=== PATIENT | female | born 1940 | race Caucasian/White ===

== ENCOUNTER 2017-02-07 15:56 | Inpatient (IN) ==
--- NOTE | 2017-02-07 16:37 | Emergency Department Note ---
Disposition Clinical Impression: Hypokalemia, Dehydration Altered mental status Qualifiers: Altered mental status type: disorientation Qualified Code(s): R41.0 - Disorientation, unspecified Urinary tract infection Qualifiers: Urinary tract infection type: acute cystitis Hematuria presence: without hematuria Qualified Code(s): N30.00 - Acute cystitis without hematuria Disposition: Admitted As Inpatient Condition: Fair Time of Disposition: 18:58 Altered Mental Status HPI - General Chief Complaint: ED Altered Mental Status Stated Complaint: AMS Time Seen by Provider: 02/07/17 16:00 Source: EMS Mode of arrival: EMS Limitations: altered mental status Nursing Notes Reviewed: Yes Vital Signs Reviewed: Yes - History of Present Illness HPI Narrative: Ms Kline is a 77 year old female that presents to the ED via EMS for AMS. Patient was seen in the ED for an unwitnessed fall at approx 4am on 02/06/17. Patient was found to have a fracture of her Left wrist, which was reduced and splinted in the ED. At that time family reports that patient's mentation was at baseline and head CT in the ED was negative. However, daughter notes today that when they awoke patient she seems to slouch to the left she does not follow commands, and does not respond appropriately to questioning. Currently patient states she feels better today than yesterday and replies "pkay" to most questions. Vital signs currently stable. Patient has a history of Dementia s/p encephalitis 7 years ago, history of uterine cancer s/p hysterectomy. MD complaint: altered mental status Onset (ago): hour(s) Time: 08:00 Timing confirmed by: family member Consistency of Symptoms: constant Context: other (history of dementia) Associated symptoms: Reports: denies other symptoms - Related Data Home Medications Medication Instructions Recorded Confirmed Alprazolam [Xanax 0.25 MG Tablet] 0.25 mg PO BID PRN 02/07/17 02/07/17 Atorvastatin [Lipitor] 40 mg PO HS 02/07/17 02/07/17 Citalopram Hydrobromide [Celexa] 40 mg PO DAILY 02/07/17 02/07/17 Donepezil HCl [Aricept] 5 mg PO HS 02/07/17 02/07/17 Losartan Potassium [Cozaar] 50 mg PO DAILY 02/07/17 02/07/17 Multivitamin [Multi-Day Vitamins] 1 each PO DAILY 02/07/17 02/07/17 Allergies Allergy/AdvReac Type Severity Reaction Status Date / Time No Known Allergies Allergy Verified 02/06/17 08:03 Limitations: ROS unobtainable due to patients medical condition Past Medical History - Past Medical History Attestation: Yes The following information was validated with the patient. Source: old records reviewed, obtained from family Medical history: Reports: dementia, other (uterine cancer) Surgical history: Reports: hysterectomy Psychiatric history: Reports: no psych history FOOD SERVICE MANAGER history: Reports: no FOOD SERVICE MANAGER history - Social History Smoking Status: Current every day smoker Smokeless Tobacco Status: No Alcohol use: Reports: none Drug use: Reports: none Physical Exam - General Limitations: altered mental status General appearance: alert - Head Head exam: atraumatic, normocephalic - Eye Eye exam: Present: EOMI, miosis, other (distortion of iris) - ENT ENT exam: mucous membranes moist, other (poor dentition) - Neck Neck exam: Present: normal inspection, trachea midline. Absent: tenderness - Chest Chest inspection: Present: normal inspection, symmetric chest wall rise. Absent : tenderness - Respiratory Respiratory exam: Present: normal lung sounds bilaterally. Absent: respiratory distress, wheezes - Cardiovascular Cardiovascular exam: Present: regular rate, normal rhythm, +S1, +S2 - Abdominal Exam Abdominal exam: Present: soft, Non-Tender, normal bowel sounds. Absent: tenderness, distention - Extremities Exam Extremities exam: Present: normal inspection. Absent: pedal edema - Expanded Upper Extremity Exam Hand exam: Present: swelling (dorsum of L hand), ecchymosis, other (normal capillary refill). Absent: tenderness Vascular exam: Normal: capillary refill - Neurological Exam Neurological exam: Present: alert. Absent: oriented X3 - Skin Skin exam: Present: warm, dry, intact Course - Reevaluation(s) Reevaluation #1: Patient sleeping comfortably on re-examination. Reviewed plan for antibiotics and admission with family who is agreeable. Time: 19:03 - Consultations Consultation #1: Spoke to Cecy Donato NP, with admitting hospitalist, who accepted patient. Time: 18:51 Vital Signs Temperature 98.7 F 02/07/17 16:02 Pulse Rate 97 02/07/17 16:02 Respiratory Rate 20 02/07/17 16:02 Blood Pressure 103/54 02/07/17 16:02 O2 Sat by Pulse Oximetry 94 02/07/17 16:02 Temperature 98.7 F 02/07/17 16:02 Pulse Rate 95 02/07/17 16:21 Respiratory Rate 18 02/07/17 16:21 Blood Pressure 113/47 02/07/17 16:21 O2 Sat by Pulse Oximetry 95 02/07/17 16:21 Oxygen Delivery Oxygen Delivery Nasal Cannula Altered Mental Status - Differential Diagnosis Likely: altered mental status, dementia - Medical Records Medical records reviewed: Yes I reviewed the patient's medical records. - Lab Data Lab results reviewed: Yes I reviewed the patient's lab results. Result diagrams: 02/07/17 17:16 02/07/17 17:16 Lab Results 02/07/17 02/07/17 02/07/17 Range/Units 17:16 17:16 17:16 WBC 8.6 (4.3-11.1) K/mcL RBC 3.45 L (3.82-4.97) M/mcL Hgb 10.6 L (11.5-15.4) g/dL Hct 32.5 L (35.3-44.9) % MCV 94.2 (83.0-100.0) fL MCH 30.7 (28.0-33.3) pg MCHC 32.6 (31.6-35.5) g/dL RDW 14.5 (11.5-14.5) % Plt Count 284 (140-400) K/mcL MPV 8.9 L (9.4-12.4) fL Seg Neutrophils % 69.0 % Band Neutrophils % 2.0 (0-4) % Lymphocytes % 20.0 % Monocytes % 9.0 % Neutrophils # 6.1 (1.6-8.9) K/mcL Lymphocytes # 1.7 (0.6-4.6) K/mcL Monocytes # 0.8 (0.0-1.3) K/mcL Platelet Estimate Normal (Normal) PT 16.3 H (9.4-12.1) Seconds INR 1.5 APTT 26.3 (26.0-36.0) Seconds Sodium 134 L (136-145) mEq/L Potassium 3.2 L (3.5-4.5) mEq/L Chloride 95 L (98-109) mEq/L Carbon Dioxide 24 (19-29) mEq/L BUN 20 (7-20) mg/dL Creatinine 1.13 H (0.57-1.11) mg/dL Est GFR ( Amer) 56 L (> 60) Est GFR (Non-Af Amer) 47 L (> 60) BUN/Creatinine Ratio 18 (6-26) Glucose 219 H (70-99) mg/dL Calculated Osmolality 287 (280-300) Calcium 9.6 (8.6-10.8) mg/dL Magnesium 1.6 (1.6-2.6) mg/dL Total Bilirubin 0.6 (0.2-1.2) mg/dL Direct Bilirubin 0.3 (0.0-0.5) mg/dL Indirect Bilirubin 0.3 (0.0-1.2) mg/dL AST 15 (5-34) Units/L ALT 11 (0-55) Units/L Alkaline Phosphatase 118 (38-126) Units/L Serum Total Protein 6.5 (6.0-8.3) g/dL Albumin 2.7 L (3.5-5.0) g/dL Globulin 3.8 H (2.4-3.5) g/dL Albumin/Globulin Ratio 0.7 L (1.1-2.2) Urine Color (Yellow) Urine Clarity (Clear) Urine pH (5.0-8.0) pH Units Ur Specific [place] (1.010-1.025) Urine Protein (Neg-Trace) mg/dL Urine Glucose (UA) (Normal) mg/dL Urine Ketones (Negative) mg/dL Urine Blood (Negative) Urine Nitrite (Negative) Urine Bilirubin (Negative) Urine Urobilinogen (Normal) mg/dL Ur Leukocyte Esterase (Negative) Urine Microscopic RBC (0-3) per hpf Urine Microscopic WBC (0-3) per hpf Ur Squamous Epith Cells (None-Few) per lpf Urine Bacteria (None-Few) per hpf Hyaline Casts (None-Few) per lpf WBC Casts (None Seen) per lpf Ur Culture Indicated? (NO) 02/07/17 Range/Units 17:57 WBC (4.3-11.1) K/mcL RBC (3.82-4.97) M/mcL Hgb (11.5-15.4) g/dL Hct (35.3-44.9) % MCV (83.0-100.0) fL MCH (28.0-33.3) pg MCHC (31.6-35.5) g/dL RDW (11.5-14.5) % Plt Count (140-400) K/mcL MPV (9.4-12.4) fL Seg Neutrophils % % Band Neutrophils % (0-4) % Lymphocytes % % Monocytes % % Neutrophils # (1.6-8.9) K/mcL Lymphocytes # (0.6-4.6) K/mcL Monocytes # (0.0-1.3) K/mcL Platelet Estimate (Normal) PT (9.4-12.1) Seconds INR APTT (26.0-36.0) Seconds Sodium (136-145) mEq/L Potassium (3.5-4.5) mEq/L Chloride (98-109) mEq/L Carbon Dioxide (19-29) mEq/L BUN (7-20) mg/dL Creatinine (0.57-1.11) mg/dL Est GFR ( Amer) (> 60) Est GFR (Non-Af Amer) (> 60) BUN/Creatinine Ratio (6-26) Glucose (70-99) mg/dL Calculated Osmolality (280-300) Calcium (8.6-10.8) mg/dL Magnesium (1.6-2.6) mg/dL Total Bilirubin (0.2-1.2) mg/dL Direct Bilirubin (0.0-0.5) mg/dL Indirect Bilirubin (0.0-1.2) mg/dL AST (5-34) Units/L ALT (0-55) Units/L Alkaline Phosphatase (38-126) Units/L Serum Total Protein (6.0-8.3) g/dL Albumin (3.5-5.0) g/dL Globulin (2.4-3.5) g/dL Albumin/Globulin Ratio (1.1-2.2) Urine Color Yellow (Yellow) Urine Clarity Cloudy A (Clear) Urine pH 6.0 (5.0-8.0) pH Units Ur Specific [place] 1.016 (1.010-1.025) Urine Protein 30 H (Neg-Trace) mg/dL Urine Glucose (UA) Normal (Normal) mg/dL Urine Ketones Negative (Negative) mg/dL Urine Blood Large H (Negative) Urine Nitrite Negative (Negative) Urine Bilirubin Small H (Negative) Urine Urobilinogen 2.0 H (Normal) mg/dL Ur Leukocyte Esterase Small H (Negative) Urine Microscopic RBC 0-3 (0-3) per hpf Urine Microscopic WBC 30-50 H (0-3) per hpf Ur Squamous Epith Cells Many H (None-Few) per lpf Urine Bacteria Many H (None-Few) per hpf Hyaline Casts Few (None-Few) per lpf WBC Casts Few H (None Seen) per lpf Ur Culture Indicated? YES A (NO) - Radiology Data Radiology results reviewed: Yes I reviewed the patient's radiology results. Chest X-Ray 02/07/17 16:14 IMPRESSION: Limited low lung volume study without acute process. D/ / Ingrid Fregoso MD / Ingrid Fregoso MD Interpreting Provider: Ingrid Fregoso MD Head CT 02/07/17 16:38 IMPRESSION: No acute intracranial abnormality. D/ / Hugh De La Cruz MD / Hugh De La Cruz MD Interpreting Provider: Hugh De La Cruz MD - EKG Data EKG attestation: Yes I reviewed and interpreted this EKG. EKG shows normal: sinus rhythm Rate: tachycardia Rhythm: PVC's When compared to previous EKG there are: previous EKG unavailable Attestation Statement - Attestation Attestation: I examined this patient and my medical decision-making was reviewed with the MOTOR MECHANIC/PA/Advanced Practice Nurse/Resident Physician. I agree with the documented findings, disposition and treatment plan as described except to the extent set forth below. Patient was seen here yesterday was diagnosed with a fall and a left wrist fracture is here for altered mental status and weakness. The patient is confused more so than her baseline workup reveals a urinary tract infection and mild dehydration should be admitted to hospitalist service IV antibiotics fluid replenishment along with potassium replacement.
[2017-02-07 17:26] LABS: Hematocrit 32.5 % (35.3-44.9); Hemoglobin 10.6 g/dL (11.5-15.4); Mean Corpuscular HGB Conc 32.6 g/dL (31.6-35.5); Mean Corpuscular Hemoglobin 30.7 pg (28.0-33.3); Mean Corpuscular Volume 94.2 fL (83.0-100.0); Mean Platelet Volume 8.9 fL (9.4-12.4); Platelet Count 284 K/mcL (140-400); Red Blood Count 3.45 M/mcL (3.82-4.97); Red Cell Distribution Width 14.5 % (11.5-14.5)
[2017-02-07 17:33] LABS: INR 1.5; Prothrombin Time 16.3 Seconds (9.4-12.1)
[2017-02-07 17:36] LABS: Activated Partial Thrombo Time 26.3 Seconds (26.0-36.0)
[2017-02-07 17:41] LABS: Albumin 2.7 g/dL (3.5-5.0); Albumin/Globulin Ratio 0.7 (1.1-2.2); Bilirubin,Direct 0.3 mg/dL (0.0-0.5); Bilirubin,Indirect 0.3 mg/dL (0.0-1.2); Bilirubin,Total 0.6 mg/dL (0.2-1.2); Calcium 9.6 mg/dL (8.6-10.8); Globulin 3.8 g/dL (2.4-3.5); Potassium 3.2 mEq/L (3.5-4.5); Total Protein 6.5 g/dL (6.0-8.3)
[2017-02-07 17:47] LABS: Lymphocytes # 1.7 K/mcL (0.6-4.6); Monocytes # 0.8 K/mcL (0.0-1.3); Neutrophils # 6.1 K/mcL (1.6-8.9)
[2017-02-07 17:48] LABS: Platelet Estimate Normal (Normal)
[2017-02-07] MEDS ORDERED: 0.9 % Sodium Chloride w KCl 40 MEQ/1,000 ML MLS IVC SCH (18:00)
[2017-02-07 18:07] LABS: Bilirubin,Urine Small (Negative); Blood,Urine Large (Negative); Clarity,Urine Cloudy (Clear); Color,Urine Yellow (Yellow); Glucose,Urine (UA) Normal (Normal); Ketones,Urine Negative (Negative); Leukocyte Esterase,Urine Small (Negative); Nitrite,Urine Negative (Negative); Protein,Urine 30 mg/dL (Neg-Trace); Specific Gravity,Urine 1.016 (1.010-1.025)
[2017-02-07 18:10] LABS: Bacteria,Urine Many per hpf (None-Few); RBC,Urine 0-3 per hpf (0-3); Squamous Epithelial Cell,Urine Many per lpf (None-Few); WBC,Urine 30-50 per hpf (0-3)
[2017-02-07 18:21] LABS: Hyaline Casts,Urine Few per lpf (None-Few)
[2017-02-07 18:22] LABS: White Blood Cell Casts,Urine Few per lpf (None Seen)
[2017-02-07 18:45] LABS: Magnesium 1.6 mg/dL (1.6-2.6)
[2017-02-07] MEDS ORDERED: Naloxone 0.4 MG/ML INJ IVP PRN (22:05)
--- NOTE | 2017-02-07 22:11 | Internal Med History&Physical ---
Date of Encounter: 02/07/17 Time of Encounter: 22:10 Assessment and Plan (1) Urinary tract infection Current visit: Yes Status: Acute With possible sepsis (HR: >90; Change in mental status). Urine cultures pending. Empirically treat with ceftriaxone. Qualifiers: Urinary tract infection type: site unspecified Hematuria presence: without hematuria Qualified Code(s): N39.0 - Urinary tract infection, site not specified (2) Acute kidney injury Current visit: Yes Status: Acute Likely secondary to UTI/poor oral intake. Treat with IV fluids (3) Hypokalemia Current visit: Yes Status: Acute Supplement potassium and monitor. Check magnesium levels. (4) Dementia Current visit: No Status: Acute Supportive care. Continue home medications. Qualifiers: Dementia type: unspecified type Dementia behavioral disturbance: without behavioral disturbance Qualified Code(s): F03.90 - Unspecified dementia without behavioral disturbance (5) Hyperglycemia Current visit: Yes Status: Acute Not a known diabetic. Will check A1C (6) Hypertension Current visit: Yes Status: Chronic Hold losartan due to JIGAR. Qualifiers: Hypertension type: essential hypertension Qualified Code(s): I10 - Essential (primary) hypertension (7) Altered mental status Current visit: Yes Status: Acute Pt is known to have dementia and acute worsening is possibly contributed by UTI. Supportive care and treat UTI. Qualifiers: Altered mental status type: disorientation Qualified Code(s): R41.0 - Disorientation, unspecified Internal Medicine - H&P: HPI Chief complaint: Increased confusion Admitted From: Emergency Dept Plans for Post Hospital Care: Home History of present illness: Ms. Kline is a 77 year old female with past medical history significant for dementia, hypertension presented to the ED via EMS for confusion/AMS. Patient was seen in the ED for an unwitnessed fall on 02/06/17 and was found to have a fracture of her Left wrist, which was reduced and splinted in the ED. Today she was noted to be more confused and was not following commands, per family. Patient is not able to give clinical details and not able to converse with me. Pts grand daughter, who is involved in her care indicates that her mental status is way worse compared to her baseline. She was evaluated in the ER and was thought to have UTI and was given ceftriaxone and IV fluids. She is admitted to the hospitalist service for further management. Not able to confirm Past medical Hx, social Hx and family Hx of the pt due to her dementia. Past Med Surg Social Fam HX - Past Medical History Medical history: dementia, other Psychiatric history: no psych history - Past Surgical History Surgical History: hysterectomy - Social History Smoking Status: Current every day smoker Smokeless Tobacco Status: No Alcohol use: none Drug use: none Internal Medicine - H&P: Meds Alprazolam [Xanax 0.25 MG Tablet] 0.25 mg PO BID PRN 02/07/17 [History] Atorvastatin [Lipitor] 40 mg PO HS 02/07/17 [History] Citalopram Hydrobromide [Celexa] 40 mg PO DAILY 02/07/17 [History] Donepezil HCl [Aricept] 5 mg PO HS 02/07/17 [History] Losartan Potassium [Cozaar] 50 mg PO DAILY 02/07/17 [History] Multivitamin [Multi-Day Vitamins] 1 each PO DAILY 02/07/17 [History] Allergies No Known Allergies Allergy (Verified 02/06/17 08:03) ROS unobtainable: due to mental status - Constitutional Vitals: Temp Pulse Resp BP Pulse Ox 98.0 F 78 16 125/61 91 02/07/17 20:33 02/07/17 20:33 02/07/17 20:33 02/07/17 20:33 02/07/17 20:33 Exam: General: Not in acute distress at the time of my evaluation. HEENT: Oral mucosa is dry. conjunctival palor present. No scleral icterus Neck: No obvious neck swellings Lungs: Clear to auscultation Cardiac: Regular rate and rhythm. No significant murmurs Abdomen: Soft, non tender. Bowel sounds present Genitourinary: No rios catheter Neurological: Confused. Not able to follow commands. Psych: confused. Not aggressive or agitated Extremities: no significant leg edema Skin: No generalized rash Internal Med - H&P Results - Labs CBC & Chem 7: 02/07/17 17:16 02/07/17 17:16 - EKG Data -: EKG Interpreted by Myself EKG shows normal: sinus rhythm - EKG Data EKG comments: RBBB 02/08/17 05:20 - Impressions ITS Impressions Chest X-Ray 02/07/17 16:14 IMPRESSION: Limited low lung volume study without acute process. D/ / Ingrid Fregoso MD / Ingrid Fregoso MD Interpreting Provider: Ingrid Fregoso MD Head CT 02/07/17 16:38 IMPRESSION: No acute intracranial abnormality. D/ / Hugh De La Cruz MD / Hugh De La Cruz MD Interpreting Provider: Hugh De La Cruz MD
[2017-02-07] MEDS: 0.9 % Sodium Chloride w KCl 40 MEQ/1,000 ML MLS IVC SCH (23:45)
[2017-02-07] MEDS: *HR* Heparin 5,000 UNIT/ML VIAL SQ SCH (23:46)
[2017-02-08] MEDS ORDERED: Acetaminophen 325 MG TABLET PO PRN (05:04)
[2017-02-08] MEDS ORDERED: ALPRAZolam 0.25 MG TABLET PO PRN (05:05)
[2017-02-08 05:38] LABS: Hematocrit 30.9 % (35.3-44.9); Hemoglobin 9.9 g/dL (11.5-15.4); Mean Corpuscular Volume 96.9 fL (83.0-100.0); Platelet Count 261 K/mcL (140-400); Red Blood Count 3.19 M/mcL (3.82-4.97); Red Cell Distribution Width 14.5 % (11.5-14.5)
[2017-02-08 05:50] LABS: BUN/Creatinine Ratio 17 (6-26); Blood Urea Nitrogen 15 mg/dL (7-20); Calcium 8.5 mg/dL (8.6-10.8); Carbon Dioxide 26 mEq/L (19-29); Chloride 99 mEq/L (98-109); Glucose 151 mg/dL (70-99); Magnesium 1.7 mg/dL (1.6-2.6); Osmolality,Calculated 280 (280-300); Potassium 3.7 mEq/L (3.5-4.5); Sodium 133 mEq/L (136-145); eGFR For African Americans > 60 (> 60); eGFR For Non-African Americans > 60 (> 60)
[2017-02-08 06:24] LABS: Lymphocytes # 2.4 K/mcL (0.6-4.6); Monocytes # 1.5 K/mcL (0.0-1.3); Neutrophils # 4.6 K/mcL (1.6-8.9); Platelet Estimate Normal (Normal)
[2017-02-08 08:01] LABS: Hemoglobin A1C 5.8 %
[2017-02-08] MEDS: Lactobacillus 1 EACH CAP.SPRINK PO SCH ×2 (08:11→20:19)
[2017-02-08] MEDS: Multivit/Ca/Min/Fe/FA 1 TAB TABLET PO SCH (08:12)
[2017-02-08] MEDS: *HR* Heparin 5,000 UNIT/ML VIAL SQ SCH (08:12)
[2017-02-08] MEDS: 0.9 % Sodium Chloride w KCl 40 MEQ/1,000 ML MLS IVC SCH ×3 (10:09→20:15)
[2017-02-08] MEDS ORDERED: *HR* Dextrose 50 % in Water (Syg) 50 ML SYRINGE IVP PRN (11:29)
[2017-02-08] MEDS ORDERED: Dextrose Gel 15 GM PO PRN ×2 (11:29)
[2017-02-08] MEDS ORDERED: D5% in Water 1,000 ML IVC PRN (11:29)
[2017-02-08] MEDS: *HR* LORazepam 0.5 MG TABLET PO PRN ×2 (13:17→23:02)
[2017-02-08] MEDS: *HR* HYDROcodone/Acet 5/325 mg TABLET PO PRN ×2 (13:17→23:03)
[2017-02-08] MEDS: Insulin LISPRO 300 UNITS/3 ML VIAL SQ SCH ×2 (13:20→17:04)
[2017-02-08] MEDS: Nicotine 14 MG PATCH.TD24 TD SCH (13:31)
--- NOTE | 2017-02-08 17:49 | Electrocardiograph Report ---
[address] [place] [address] Test Date: 2017-02-07 Pat Name: Annie Kline Department: 103 Room: 3A51 Gender: F Director Ehs: : 1940 Requested By: Gomez Thomas Order Number: [id number] Reading MD: Reinier Gtz MD Measurements Intervals [place] Rate: 93 P: 71 NC: 159 QRS: -67 QRSD: 82 T: 53 QT: 366 QTc: 416 Interpretive Statements SINUS RHYTHM WITH OCCASIONAL VENTRICULAR PREMATURE COMPLEXES LEFT AXIS DEVIATION POSSIBLE RIGHT VENTRICULAR CONDUCTION DELAY INFERIOR MYOCARDIAL INFARCTION, PROBABLY OLD WITH POSTERIOR EXTENSION Electronically Signed On 02-08-2017 17:48:15 EDT by Reinier Gtz MD
--- NOTE | 2017-02-08 19:21 | Internal Med Progress Note ---
Date of Encounter: 02/08/17 Time of Encounter: 11:00 - Assessment and plan (1) Fracture of wrist Current Visit: No Status: Acute Assessment and plan: Oral Kincaid for pain. Qualifiers: Encounter type: initial encounter Fracture type: closed Laterality: left Qualified Code(s): S62.102A - Fracture of unspecified carpal bone, left wrist , initial encounter for closed fracture (2) Dementia Current Visit: No Status: Acute Assessment and plan: Full precautions. Frequent reorientation. Avoid excessive sedation. Qualifiers: Dementia type: unspecified type Dementia behavioral disturbance: without behavioral disturbance Qualified Code(s): F03.90 - Unspecified dementia without behavioral disturbance (3) Urinary tract infection Current Visit: Yes Status: Acute Assessment and plan: We will treat her with IV ceftriaxone. Follow up cultures and sensitivity. Qualifiers: Urinary tract infection type: site unspecified Hematuria presence: without hematuria Qualified Code(s): N39.0 - Urinary tract infection, site not specified (4) Dehydration Current Visit: Yes Status: Acute Assessment and plan: IV fluid hydration. (5) Hypertension Current Visit: Yes Status: Chronic Qualifiers: Hypertension type: essential hypertension Qualified Code(s): I10 - Essential (primary) hypertension - Subjective Interval history: Patient reports left wrist pain as well as lower abdominal pain and dysuria. She was brought in with confusion, currently her mental status has slightly improved. Her family reports that patient has baseline dementia. - Constitutional Vitals: Temp Pulse Resp BP Pulse Ox 97.7 F 63 18 132/70 96 02/08/17 16:35 02/08/17 16:35 02/08/17 16:35 02/08/17 16:35 02/08/17 17:16 - Neck Neck exam general surgery: Present: supple, trachea midline. Absent: lymphadenopathy - Respiratory Respiratory exam: Present: CTAB. Absent: accessory muscle use, rales, rhonchi, wheezes - Cardiovascular Cardiovascular exam: Present: RRR, +S1, +S2. Absent: diastolic murmur, gallop, rubs, systolic murmur - GI/Abdominal GI/Abdominal exam: Present: normal bowel sounds, soft, no peritoneal signs. Absent: distended, tenderness - Extremities Exam Additional comments: Left breast is in a brace, mild swelling of the fingers. Internal Medicine: Result - Labs CBC & Chem 7: 02/08/17 05:22 02/08/17 05:22 Labs: Short CBC 02/08/17 Range/Units 05:22 WBC 8.5 (4.3-11.1) K/mcL Hgb 9.9 L (11.5-15.4) g/dL Hct 30.9 L (35.3-44.9) % Plt Count 261 (140-400) K/mcL Neutrophils # 4.6 (1.6-8.9) K/mcL BMP 02/08/17 05:22 Sodium 133 L Potassium 3.7 Chloride 99 Carbon Dioxide 26 BUN 15 Creatinine 0.86 Glucose 151 H Calcium 8.5 L - ABG Interpretation ABG results: PT/INR, D-dimer PT 16.3 Seconds (9.4-12.1) H 02/07/17 17:16 Consult Discharge Plan - Plan Referrals: Chuy Lloyd MD [Primary Care Provider] - 02/16/17 2:00 pm
[2017-02-08] MEDS ORDERED: Insulin LISPRO 300 UNITS/3 ML VIAL SQ SCH (21:00)
[2017-02-09] MEDS: *HR* HYDROcodone/Acet 5/325 mg TABLET PO PRN (04:41)
[2017-02-09] MEDS: 0.9 % Sodium Chloride w KCl 40 MEQ/1,000 ML MLS IVC SCH ×2 (04:49→07:14)
[2017-02-09 06:13] LABS: BUN/Creatinine Ratio 13 (6-26); Blood Urea Nitrogen 9 mg/dL (7-20); Calcium 8.7 mg/dL (8.6-10.8); Carbon Dioxide 19 mEq/L (19-29); Chloride 107 mEq/L (98-109); Glucose 112 mg/dL (70-99); Osmolality,Calculated 281 (280-300); Potassium 5.2 mEq/L (3.5-4.5); Sodium 136 mEq/L (136-145); eGFR For African Americans > 60 (> 60); eGFR For Non-African Americans > 60 (> 60)
[2017-02-09] MEDS: Insulin LISPRO 300 UNITS/3 ML VIAL SQ SCH ×2 (08:00→12:52)
[2017-02-09] MEDS: Lactobacillus 1 EACH CAP.SPRINK PO SCH (10:15)
[2017-02-09] MEDS: Multivit/Ca/Min/Fe/FA 1 TAB TABLET PO SCH (10:15)
[2017-02-09] MEDS: Nicotine 14 MG PATCH.TD24 TD SCH (10:16)
[2017-02-09 11:49] LABS: Hematocrit 29.6 % (35.3-44.9); Hemoglobin 9.9 g/dL (11.5-15.4); Mean Corpuscular HGB Conc 33.4 g/dL (31.6-35.5); Mean Corpuscular Hemoglobin 31.8 pg (28.0-33.3); Mean Corpuscular Volume 95.2 fL (83.0-100.0); Mean Platelet Volume 9.3 fL (9.4-12.4); Platelet Count 305 K/mcL (140-400); Red Blood Count 3.11 M/mcL (3.82-4.97); Red Cell Distribution Width 14.6 % (11.5-14.5)
[2017-02-09 12:22] VITALS: BP 148/73
--- NOTE | 2017-02-09 12:58 | Discharge Summary ---
Date of Encounter: 02/10/17 Time of Encounter: 12:56 - Discharge Diagnosis (1) Fracture of wrist Priority: Secondary Status: Acute Qualifiers: Encounter type: initial encounter Fracture type: closed Laterality: left Qualified Code(s): S62.102A - Fracture of unspecified carpal bone, left wrist , initial encounter for closed fracture (2) Dementia Priority: Secondary Status: Acute Qualifiers: Dementia type: unspecified type Dementia behavioral disturbance: without behavioral disturbance Qualified Code(s): F03.90 - Unspecified dementia without behavioral disturbance (3) Urinary tract infection Priority: Primary Status: Acute Qualifiers: Urinary tract infection type: site unspecified Hematuria presence: without hematuria Qualified Code(s): N39.0 - Urinary tract infection, site not specified (4) Dehydration Priority: Secondary Status: Acute (5) Hypertension Priority: Secondary Status: Chronic Qualifiers: Hypertension type: essential hypertension Qualified Code(s): I10 - Essential (primary) hypertension - Discharge Medications Prescriptions: HYDROcodone/Acet 5/325 mg [[place] 5-325 mg] 1 tab PO Q6HR PRN #30 tablet PRN Reason: moderate to severe pain Cefuroxime PO [Ceftin] 250 mg PO Q12HR #10 tablet LORazepam [Ativan] 0.25 mg PO TID PRN #30 tablet PRN Reason: Anxiety Home Medications: Atorvastatin [Lipitor] 40 mg PO HS 02/07/17 [History] Citalopram Hydrobromide [Celexa] 40 mg PO DAILY 02/07/17 [History] Donepezil HCl [Aricept] 5 mg PO HS 02/07/17 [History] Losartan Potassium [Cozaar] 50 mg PO DAILY 02/07/17 [History] Multivitamin [Multi-Day Vitamins] 1 each PO DAILY 02/07/17 [History] Cefuroxime PO [Ceftin] 250 mg PO Q12HR #10 tablet 02/09/17 [Rx] HYDROcodone/Acet 5/325 mg [[place] 5-325 mg] 1 tab PO Q6HR PRN #30 tablet [Rx] LORazepam [Ativan] 0.25 mg PO TID PRN #30 tablet 02/09/17 [Rx] Allergies/Adverse Reactions: Allergies No Known Allergies Allergy (Verified 02/06/17 08:03) Date of admission: 02/07/17 22:05 Primary care physician: Chuy Lloyd MD Consults: 02/07/17 22:08 PT [Consult to Physical Therapy] [CONS] Routine Comment: Evaluate, develop and implement POC - Patient Status Disposition: Home, Self-Care Condition: Fair Functional capacity at discharge: uses cane/walker Overall status at discharge: patient is progressing back to baseline - Discharge Instructions Follow Up With: Chuy Lloyd MD [Primary Care Provider] - 02/16/17 2:00 pm - Diet and Activity Activity: ambulate only with your walker, as per physical therapy Diet: diabetic diet, low fat, low cholesterol, low salt diet Hospital course: Ms. Kline is a 77 year old female with past medical history of hypertension and dementia who was brought to the hospital for evaluation of confusion, dehydration and decreased oral intake. She was found to have a urinary tract infection and was admitted to the medical service. She received treatment with IV fluids and IV ceftriaxone. Her mental status improved. She was able to have adequate oral intake. Her urine culture grew Escherichia coli sensitive to cephalosporins. She will be transitioned to oral Ceftin and discharged home. Her anxiolytics have been changed from Xanax as per her home regimen to low-dose Ativan. She tolerated this well. She was evaluated by social service and found to not qualify for a hospital bed. She is currently medically stable for discharge home. Family was instructed to have the patient follow up with her primary care physician as possible. - Time Spent with Patient Total time spent providing and/or coordinating discharge services: - Constitutional Vitals: Temp Pulse Resp BP Pulse Ox 98.2 F 84 18 148/73 90 02/09/17 12:12 02/09/17 12:12 02/09/17 12:12 02/09/17 12:12 02/09/17 12:12 General appearance: Present: A&O X 2 - Eye Eye exam: Present: PERRL, conjuntiva pink, sclera anicteric Pupils: Present: PERRL - Respiratory Respiratory exam: Present: CTAB. Absent: accessory muscle use, rales, rhonchi, wheezes - Cardiovascular Cardiovascular exam: Present: RRR, +S1, +S2. Absent: diastolic murmur, gallop, rubs, systolic murmur
== END 2017-02-09 14:03 | disposition home or self-care (01) | DRG 683 ==
LOC: 3ANU 15:56 → EMEROO 15:56 → 3ANU 19:40
PROVIDERS: ADMIT Internal Medicine; ATTEND Internal Medicine

== ENCOUNTER 2017-08-28 18:32 | Observation (INO) ==
--- NOTE | 2017-08-28 19:17 | Emergency Department Note ---
Disposition Clinical Impression: Generalized weakness Disposition: Admitted As Inpatient Condition: Undetermined Referrals: Chuy Lloyd MD [Primary Care Provider] - Forms: ED Satisfaction Letter Time of Disposition: 22:14 Weakness HPI - General Chief complaint: ED Weakness Stated complaint: weakness Time Seen by Provider: 08/28/17 18:58 Source: patient, EMS Mode of arrival: EMS Limitations: altered mental status Nursing Notes Reviewed: Yes Vital Signs Reviewed: Yes - History of Present Illness HPI Narrative: 77-year-old female with history of UTI apparently arrives to [facility] emergency department complaining of generalized weakness and mild alteration in mentation from her baseline per family. EMS was called after the patient was acting slightly confused. The patient does have an extensive history of UTI and apparently goes through similar episodes during those episodes. The patient denies any complaints and is answering all questions appropriately to me in the emergency department. EMS also stated the patient answer all questions appropriately. The patient denies any other complaints including dysuria, abdominal pain, fever, chills, unilateral weakness , headache, cough, abdominal pain, neck stiffness. Pt Subjective Complaint: generalized weakness/fatigue Onset (ago): unknown Duration: gradually worsening Location: generalized Pain Severity: none Pain Scale: 0 Improves with: none Worsens with: none Context: history of similar Associated symptoms: Reports: denies other symptoms - Related Data Home Medications Medication Instructions Recorded Confirmed Atorvastatin [Lipitor] 40 mg PO HS 02/07/17 08/28/17 Citalopram Hydrobromide [Celexa] 40 mg PO DAILY 02/07/17 08/28/17 Donepezil HCl [Aricept] 5 mg PO HS 02/07/17 08/28/17 Losartan Potassium [Cozaar] 50 mg PO DAILY 02/07/17 08/28/17 Multivitamin [Multi-Day Vitamins] 1 each PO DAILY 02/07/17 08/28/17 ALPRAZolam [Xanax 0.25 MG Tablet] 0.25 mg PO BID PRN 08/28/17 08/28/17 Allergies Allergy/AdvReac Type Severity Reaction Status Date / Time No Known Allergies Allergy Verified 02/06/17 08:03 All systems ED: reviewed and negative except as stated. Constitutional: Reports: weakness. Denies: fever, chills Eyes: Denies: vision change ENT ED: Denies: congestion Cardiovascular: Denies: chest pain, palpitations, dyspnea on exertion, edema, syncope Respiratory: Denies: cough, dyspnea, wheezes, hemoptysis Gastrointestinal: Denies: abdominal pain, nausea, vomiting Genitourinary: Denies: urgency, dysuria, frequency Musculoskeletal: Denies: back pain Neurological: Reports: weakness, confusion. Denies: headache, numbness, paresthesias, abnormal gait Past Medical History - Past Medical History Attestation: Yes The following information was validated with the patient. Source: old records reviewed Medical history: Reports: dementia, other Surgical history: Reports: hysterectomy Psychiatric history: Reports: no psych history GROCERY CADDY history: Reports: no GROCERY CADDY history - Social History Smoking Status: Current every day smoker Smokeless Tobacco Status: No Alcohol use: Reports: none Drug use: Reports: none Physical Exam - General Limitations: altered mental status General appearance: alert, in no apparent distress - Head Head exam: atraumatic, normocephalic, normal inspection - Eye Eye exam: Present: normal appearance, PERRL, EOMI - ENT ENT exam: normal exam, normal oropharynx, mucous membranes moist - Neck Neck exam: Present: normal inspection - Chest Chest inspection: Present: normal inspection, symmetric chest wall rise - Respiratory Respiratory exam: Present: normal lung sounds bilaterally - Cardiovascular Cardiovascular exam: Present: regular rate, normal rhythm, normal heart sounds - Abdominal Exam Abdominal exam: Present: soft, Non-Tender. Absent: tenderness, distention, guarding, rebound, rigidity - Extremities Exam Extremities exam: Present: normal inspection, full ROM. Absent: tenderness, pedal edema - Neurological Exam Neurological exam: Present: alert, CN II-XII intact - Expanded Neurological Exam Patient oriented to: Present: person, place Speech: Present: fluid speech Cranial nerves: EOM function (II, III, IV, ): Normal, facial sensation (V): Normal, facial palsy (VII): Normal Motor strength - LUE: 5/5 Motor strength - RUE: 5/5 Motor strength - LLE: 5/5 Motor strength - RLE: 5/5 Sensory exam upper extremity: light touch: Normal Sensory exam lower extremity: light touch: Normal Coma Scale Eye Opening: Spontaneous Coma Scale Motor Response: Obeys Commands Coma Scale Verbal Response: Oriented Coma Scale Total: 15 Course Vital Signs Temperature 98.2 F 08/28/17 18:40 Pulse Rate 81 10/23/17 18:40 Respiratory Rate 16 08/28/17 18:40 Blood Pressure 127/57 08/28/17 18:40 O2 Sat by Pulse Oximetry 97 08/28/17 18:40 Temperature 98.2 F 08/28/17 18:40 Pulse Rate 76 08/28/17 21:19 Respiratory Rate 16 08/28/17 21:19 Blood Pressure 100/57 08/28/17 21:19 O2 Sat by Pulse Oximetry 98 08/28/17 21:19 Oxygen Delivery Oxygen Delivery Room Air Weakness - MDM Narrative Medical decision making narrative: She experiencing large amount of weakness and family expressed that they were having difficulty with caring for the patient. They expressed the concern that they would not be able to care for the patient at this time. Workup here in the emergency department demonstrates no acute findings. The patient does have a history of dementia. We will admit the patient to the hospitalist at this time. Accepted by Dr. Cardenas. - Lab Data Lab results reviewed: Yes I reviewed the patient's lab results. Result diagrams: 08/28/17 19:31 08/28/17 19:31 Lab Results 08/28/17 08/28/17 08/28/17 Range/Units 19:31 19:31 19:31 WBC 6.6 (4.3-11.1) K/mcL RBC 3.56 L (3.82-4.97) M/mcL Hgb 11.3 L (11.5-15.4) g/dL Hct 33.4 L (35.3-44.9) % MCV 93.8 (83.0-100.0) fL MCH 31.7 (28.0-33.3) pg MCHC 33.8 (31.6-35.5) g/dL RDW 13.8 (11.5-14.5) % Plt Count 232 (140-400) K/mcL MPV 8.3 L (9.4-12.4) fL Immature Gran % 6.0 H (0-4) % Seg Neutrophils % 53.3 % Lymphocytes % 30.7 % Monocytes % 9.2 % Eosinophils % 0.5 % Basophils % 0.3 % Neutrophils # 3.5 (1.6-8.9) K/mcL Lymphocytes # 2.0 (0.6-4.6) K/mcL Monocytes # 0.6 (0.0-1.3) K/mcL Eosinophils # 0.0 (0.0-0.6) K/mcL Basophils # 0.0 (0.0-0.2) K/mcL Sodium 133 L (136-145) mEq/L Potassium 4.2 (3.5-4.5) mEq/L Chloride 97 L (98-109) mEq/L Carbon Dioxide 28 (19-29) mEq/L BUN 8 (7-20) mg/dL Creatinine 0.72 (0.57-1.11) mg/dL Est GFR ( Amer) > 60 (> 60) Est GFR (Non-Af Amer) > 60 (> 60) BUN/Creatinine Ratio 11 (6-26) Glucose 117 H (70-99) mg/dL Calculated Osmolality 275 L (280-300) Calcium 9.5 (8.6-10.8) mg/dL Total Bilirubin 0.2 (0.2-1.2) mg/dL AST 13 (5-34) Units/L ALT 11 (0-55) Units/L Alkaline Phosphatase 145 H (38-126) Units/L Troponin I 0.00 (0-0.03) ng/mL Serum Total Protein 6.9 (6.0-8.3) g/dL Albumin 3.1 L (3.5-5.0) g/dL Globulin 3.8 H (2.4-3.5) g/dL Albumin/Globulin Ratio 0.8 L (1.1-2.2) Urine Color (Yellow) Urine Clarity (Clear) Urine pH (5.0-8.0) pH Units Ur Specific [place] (1.010-1.025) Urine Protein (Neg-Trace) mg/dL Urine Glucose (UA) (Normal) mg/dL Urine Ketones (Negative) mg/dL Urine Blood (Negative) Urine Nitrite (Negative) Urine Bilirubin (Negative) Urine Urobilinogen (Normal) mg/dL Ur Leukocyte Esterase (Negative) Ur Squamous Epith Cells (None-Few) per lpf Urine Bacteria (None-Few) per hpf Hyaline Casts Urine Yeast (None Seen) per hpf Ur Culture Indicated? (NO) 08/28/17 Range/Units 19:39 WBC (4.3-11.1) K/mcL RBC (3.82-4.97) M/mcL Hgb (11.5-15.4) g/dL Hct (35.3-44.9) % MCV (83.0-100.0) fL MCH (28.0-33.3) pg MCHC (31.6-35.5) g/dL RDW (11.5-14.5) % Plt Count (140-400) K/mcL MPV (9.4-12.4) fL Immature Gran % (0-4) % Seg Neutrophils % % Lymphocytes % % Monocytes % % Eosinophils % % Basophils % % Neutrophils # (1.6-8.9) K/mcL Lymphocytes # (0.6-4.6) K/mcL Monocytes # (0.0-1.3) K/mcL Eosinophils # (0.0-0.6) K/mcL Basophils # (0.0-0.2) K/mcL Sodium (136-145) mEq/L Potassium (3.5-4.5) mEq/L Chloride (98-109) mEq/L Carbon Dioxide (19-29) mEq/L BUN (7-20) mg/dL Creatinine (0.57-1.11) mg/dL Est GFR ( Amer) (> 60) Est GFR (Non-Af Amer) (> 60) BUN/Creatinine Ratio (6-26) Glucose (70-99) mg/dL Calculated Osmolality (280-300) Calcium (8.6-10.8) mg/dL Total Bilirubin (0.2-1.2) mg/dL AST (5-34) Units/L ALT (0-55) Units/L Alkaline Phosphatase (38-126) Units/L Troponin I (0-0.03) ng/mL Serum Total Protein (6.0-8.3) g/dL Albumin (3.5-5.0) g/dL Globulin (2.4-3.5) g/dL Albumin/Globulin Ratio (1.1-2.2) Urine Color Yellow (Yellow) Urine Clarity Clear (Clear) Urine pH 6.5 (5.0-8.0) pH Units Ur Specific [place] 1.008 L (1.010-1.025) Urine Protein Negative (Neg-Trace) mg/dL Urine Glucose (UA) Normal (Normal) mg/dL Urine Ketones Negative (Negative) mg/dL Urine Blood Small H (Negative) Urine Nitrite Negative (Negative) Urine Bilirubin Negative (Negative) Urine Urobilinogen Normal (Normal) mg/dL Ur Leukocyte Esterase Negative (Negative) Ur Squamous Epith Cells Few (None-Few) per lpf Urine Bacteria Few (None-Few) per hpf Hyaline Casts Test Not Performed Urine Yeast Few H (None Seen) per hpf Ur Culture Indicated? NO (NO) - EKG Data EKG attestation: Yes I reviewed and interpreted this EKG. EKG results narrative: Heart rate 80 bpm. PA interval 183 ms. QTC 399 ms. Normal sinus rhythm. No ST elevation or ST depression. EKG similar in appearance overall the EKG from 02/07/2017. Attestation Statement - Attestation Attestation: I, Sonny Wren DO, examined this patient [id number] and my medical decision-making was reviewed with Dr. Erwin Lagos, Resident Physician. I agree with the documented findings, disposition and treatment plan as described except to the extent set forth below. Please see my progress notes for details. 77-year-old female presents from home in the care of . Patient has known dementia but over the last 24 hours and complaining of inability to get herself up out of her care. She has a trauma or injuries. She has normal mobility of her hips knees and ankles bilaterally. She has no complaints or symptoms on physical exam. Lungs are clear heart is regular. Patient does not have any abdominal pathology. There is no visible signs of trauma injury or pathology on physical exam the lower extremity. Patient has no visible signs of trauma to the head pupils are equal round reactive to light. Patient has negative urinalysis as well as laboratory this time. CT of the head to be completed. Chest x-ray is otherwise unremarkable. After lengthy discussion with the it turns out that the patient is unable to be cared for at home secondary to her chronic medical issues. Patient is stable. Patient will be admitted to the hospital for definitive evaluation. See detailed" the physical exam, medical intervention, medical decision-making and disposition of the resident physician's note
[2017-08-28 19:58] LABS: Basophils % 0.3 %; Eosinophils % 0.5 %; Hematocrit 33.4 % (35.3-44.9); Hemoglobin 11.3 g/dL (11.5-15.4); Lymphocytes % 30.7 %; Mean Corpuscular HGB Conc 33.8 g/dL (31.6-35.5); Mean Corpuscular Hemoglobin 31.7 pg (28.0-33.3); Mean Corpuscular Volume 93.8 fL (83.0-100.0); Mean Platelet Volume 8.3 fL (9.4-12.4); Monocytes # 0.6 K/mcL (0.0-1.3); Monocytes % 9.2 %; Neutrophils # 3.5 K/mcL (1.6-8.9); Platelet Count 232 K/mcL (140-400); Red Blood Count 3.56 M/mcL (3.82-4.97); Red Cell Distribution Width 13.8 % (11.5-14.5); Segmented Neutrophils % 53.3 %
[2017-08-28 20:13] LABS: Alanine Aminotransferase 11 Units/L (0-55); Albumin 3.1 g/dL (3.5-5.0); Albumin/Globulin Ratio 0.8 (1.1-2.2); Alkaline Phosphatase 145 Units/L (38-126); Aspartate Amino Transferase 13 Units/L (5-34); BUN/Creatinine Ratio 11 (6-26); Bilirubin,Total 0.2 mg/dL (0.2-1.2); Blood Urea Nitrogen 8 mg/dL (7-20); Calcium 9.5 mg/dL (8.6-10.8); Carbon Dioxide 28 mEq/L (19-29); Chloride 97 mEq/L (98-109); Globulin 3.8 g/dL (2.4-3.5); Glucose 117 mg/dL (70-99); Osmolality,Calculated 275 (280-300); Potassium 4.2 mEq/L (3.5-4.5); Sodium 133 mEq/L (136-145); Total Protein 6.9 g/dL (6.0-8.3); eGFR For African Americans > 60 (> 60); eGFR For Non-African Americans > 60 (> 60)
[2017-08-28 20:23] LABS: Bilirubin,Urine Negative (Negative); Blood,Urine Small (Negative); Clarity,Urine Clear (Clear); Color,Urine Yellow (Yellow); Glucose,Urine (UA) Normal (Normal); Ketones,Urine Negative (Negative); Leukocyte Esterase,Urine Negative (Negative); Nitrite,Urine Negative (Negative); PH,Urine 6.5 pH Units (5.0-8.0); Protein,Urine Negative (Neg-Trace); Specific Gravity,Urine 1.008 (1.010-1.025); Urobilinogen,Urine Normal (Normal)
[2017-08-28 20:36] LABS: Bacteria,Urine Few per hpf (None-Few)
[2017-08-28 20:37] LABS: Yeast,Urine Few per hpf (None Seen)
[2017-08-28 20:38] LABS: Squamous Epithelial Cell,Urine Few per lpf (None-Few)
[2017-08-29] MEDS ORDERED: Acetaminophen 325 MG TABLET PO PRN (08:52)
[2017-08-29] MEDS ORDERED: ALPRAZolam 0.25 MG TABLET PO PRN (08:59)
--- NOTE | 2017-08-29 09:04 | Internal Med History&Physical ---
Date of Encounter: 08/29/17 Time of Encounter: 08:30 Assessment and Plan (1) Generalized weakness Current visit: Yes Status: Acute Labs, chest x-ray and urinalysis noted to be normal, no evidence of infection at this time. Generalized weakness likely related to worsening dementia and mild underlying chronic bronchitis. Continue supportive care and fall precautions. Physical and occupational therapy evaluation. According to emergency room notes, patient's family is unable to take care of her at home. patient services representative consult for safe discharge. (2) Essential hypertension Current visit: Yes Status: Chronic Blood pressure noted to be well controlled. Continue home medications. (3) Dementia Current visit: Yes Status: Chronic Continue Aricept. Supportive care. Qualifiers: Dementia type: Alzheimer's disease Alzheimer's disease onset: late-onset Dementia behavioral disturbance: without behavioral disturbance Qualified Code (s): G30.1 - Alzheimer's disease with late onset; F02.80 - Dementia in other diseases classified elsewhere without behavioral disturbance; F02.80 - Dementia in other diseases classified elsewhere without behavioral disturbance; F02.80 - Dementia in other diseases classified elsewhere without behavioral disturbance (4) Chronic bronchitis Current visit: Yes Status: Chronic Patient likely has chronic bronchitis or emphysema due to history of smoking. We will start when necessary breathing treatments along with supplemental oxygen if needed. Nicotine transdermal patch as needed. Qualifiers: Chronic bronchitis type: simple Qualified Code(s): J41.0 - Simple chronic bronchitis Internal Medicine - H&P: HPI Chief complaint: Generalized weakness Admitted From: Emergency Dept Plans for Post Hospital Care: Transfer Jail Facility History of present illness: Ms. Kline is a 77 year old female with h/o dementia and hypertension who was brought in by family for further evaluation of generalized weakness. Patient currently has no family members at bedside but she is able to answer simple questions, unable to provide complete history. She denies chest or abdominal pain, dyspnea, dizziness or syncope. She does report generalized weakness, especially in her legs and it has been getting difficult for her to walk independently at home. She does have a walker, however does not like to use it as she gets entangled and it and it causes her to fall. Denies any recent falls. Patient reports that she is usually very healthy and would like to go home today. According to ER notes, patient's family is unable to care for her at home at this time. Past Med Surg Social Fam HX - Past Medical History Medical history: dementia, hypertension, other Psychiatric history: no psych history - Past Surgical History Surgical History: hysterectomy - Social History Smoking Status: Current some day smoker Smokeless Tobacco Status: No Alcohol use: none Drug use: none Occupational status: disabled Current living situation: Home, With Family Activity Level: Uses cane/walker Recent Out of Country Travel Within the Last 8 Weeks: No Exposure or Possible Exposure to Illness During Travel: No - Additional Family History Additional family history: Patient does not remember at this time. Internal Medicine - H&P: Meds Atorvastatin [Lipitor] 40 mg PO HS 02/07/17 [History] Citalopram Hydrobromide [Celexa] 40 mg PO DAILY 02/07/17 [History] Donepezil HCl [Aricept] 5 mg PO HS 02/07/17 [History] Losartan Potassium [Cozaar] 50 mg PO DAILY 02/07/17 [History] Multivitamin [Multi-Day Vitamins] 1 each PO DAILY 02/07/17 [History] ALPRAZolam [Xanax 0.25 MG Tablet] 0.25 mg PO BID PRN 08/28/17 [History] 3 Allergy/AdvReac Type Severity Reaction Status Date / Time No Known Allergies Allergy Verified 02/06/17 08:03 All Systems PM: A 10-system review of systems was performed and is negative for pertinent findings except as documented above in the HPI. - Constitutional Constitutional: weakness, no chills, no fever(s), no night sweats - EENT Eyes: no change in vision, no discharge, no pain, no photophobia Ears: no ear discharge, no ear pain, no tinnitus Nose, mouth and throat: no dysphagia, no nasal discharge, no neck pain, no sore throat - Cardiovascular Cardiovascular ROS IM: no chest pain, no diaphoresis, no dyspnea, no lightheadedness, no palpitations, no syncope - Respiratory Respiratory: cough, no dyspnea, no wheezing, no excessive phlegm production - Gastrointestinal Gastrointestinal: no abdominal pain, no diarrhea, no hematemesis, no hematochezia, no melena, no nausea, no vomiting - Genitourinary Genitourinary: no change in urinary stream, no dysuria, no flank pain, no hematuria - Musculoskeletal Musculoskeletal ROS IM: no numbness, no tingling - Integumentary Integumentary IM: no rash, no unusual bruising - Neurological Neurological ROS: confusion, no convulsions, no focal weakness, no numbness, no tingling, no tremor(s) - Hematologic/Lymphatic Hematologic/Lymphatic: no easy bruising - Constitutional Vitals: Temp Pulse Resp BP Pulse Ox 99.0 F 87 18 119/64 97 08/29/17 06:31 08/29/17 06:31 08/29/17 06:31 08/29/17 06:31 08/29/17 06:31 General appearance: Present: A&O X 2 (Disoriented to time and date and year), answers questions appropriately - Respiratory Respiratory exam: Present: CTAB (Coarse rhonchorous breath sounds bilaterally). Absent: accessory muscle use, rales, rhonchi, wheezes - Cardiovascular Cardiovascular exam: Present: RRR, +S1, +S2. Absent: diastolic murmur, gallop, rubs, systolic murmur - GI/Abdominal GI/Abdominal exam: Present: normal bowel sounds, soft, no peritoneal signs. Absent: distended, tenderness - Extremities Exam Extremities exam: Present: full ROM, warm, radial pulses palpable and symmetrical. Absent: calf tenderness, cyanotic, pedal edema - Neurological Exam Neurological exam: Present: CN II-XII intact, no focal deficits. Absent: pronater drift, facial droop, speech deficit - Skin Skin exam: Present: dry, intact Internal Med - H&P Results - Labs CBC & Chem 7: 08/28/17 19:31 08/28/17 19:31
[2017-08-29] MEDS: Multivit/Ca/Min/Fe/FA 1 TAB TABLET PO SCH (09:21)
[2017-08-29] MEDS ORDERED: Ipratropium/Albuterol Neb 3 ML IH PRN (11:02)
--- NOTE | 2017-08-29 16:13 | Electrocardiograph Report ---
[place] [id number] Test Date: 2017-08-28 Pat Name: Annie Kline Department: 103 Room: [facility] Gender: F Medical Sales Specialist: SHAWN : 1940 Requested By: Erwin Lagos Order Number: [id number] Reading MD: Mumtaz Quinones Measurements Intervals [place] Rate: 80 P: 83 SD: 183 QRS: 256 QRSD: 90 T: 67 QT: 363 QTc: 399 Interpretive Statements SINUS RHYTHM WITH SINUS ARRHYTHMIA MARKED RIGHT AXIS DEVIATION POSSIBLE RIGHT VENTRICULAR CONDUCTION DELAY MODERATE ST DEPRESSION Electronically Signed On 08-29-2017 16:11:04 EDT by Mumtaz Quinones
[2017-08-29] MEDS: Nicotine 14 MG PATCH.TD24 TD SCH (17:45)
[2017-08-29] MEDS: *HR* Heparin 5,000 UNIT/ML VIAL SQ SCH (18:04)
[2017-08-30 03:32] LABS: Basophils % 0.3 %; Eosinophils % 0.3 %; Hematocrit 34.2 % (35.3-44.9); Hemoglobin 11.3 g/dL (11.5-15.4); Immature Granulocytes % 5.4 % (0-4); Lymphocytes # 3.3 K/mcL (0.6-4.6); Lymphocytes % 47.8 %; Mean Corpuscular Hemoglobin 31.4 pg (28.0-33.3); Mean Platelet Volume 8.2 fL (9.4-12.4); Monocytes # 0.6 K/mcL (0.0-1.3); Monocytes % 9.2 %; Neutrophils # 2.5 K/mcL (1.6-8.9); Platelet Count 242 K/mcL (140-400); Red Cell Distribution Width 14.1 % (11.5-14.5)
[2017-08-30 03:44] LABS: BUN/Creatinine Ratio 15 (6-26); Blood Urea Nitrogen 12 mg/dL (7-20); Calcium 9.1 mg/dL (8.6-10.8); Carbon Dioxide 25 mEq/L (19-29); Chloride 98 mEq/L (98-109); Glucose 130 mg/dL (70-99); Osmolality,Calculated 274 (280-300); Potassium 3.7 mEq/L (3.5-4.5); Sodium 131 mEq/L (136-145); eGFR For African Americans > 60 (> 60); eGFR For Non-African Americans > 60 (> 60)
[2017-08-30 04:17] LABS: Platelet Estimate Normal (Normal); Reactive Lymphocytes Present (Not Present); Toxic Granulation Present (Not Present)
[2017-08-30] MEDS: *HR* Heparin 5,000 UNIT/ML VIAL SQ SCH (06:15)
[2017-08-30] MEDS: Multivit/Ca/Min/Fe/FA 1 TAB TABLET PO SCH (08:29)
[2017-08-30] MEDS: Nicotine 14 MG PATCH.TD24 TD SCH (08:30)
[2017-08-30 11:16] VITALS: BP 122/66
--- NOTE | 2017-08-30 13:46 | Discharge Summary ---
Date of Encounter: 08/30/17 Time of Encounter: 13:43 - Discharge Diagnosis (1) Generalized weakness Priority: Primary Status: Acute (2) Dementia Priority: Secondary Status: Chronic Qualifiers: Dementia type: Alzheimer's disease Alzheimer's disease onset: late-onset Dementia behavioral disturbance: without behavioral disturbance Qualified Code (s): G30.1 - Alzheimer's disease with late onset; F02.80 - Dementia in other diseases classified elsewhere without behavioral disturbance; F02.80 - Dementia in other diseases classified elsewhere without behavioral disturbance; F02.80 - Dementia in other diseases classified elsewhere without behavioral disturbance (3) Essential hypertension Priority: Secondary Status: Chronic - Discharge Medications Home Medications: Atorvastatin [Lipitor] 40 mg PO HS 02/07/17 [History] Citalopram Hydrobromide [Celexa] 40 mg PO DAILY 02/07/17 [History] Donepezil HCl [Aricept] 5 mg PO HS 02/07/17 [History] Losartan Potassium [Cozaar] 50 mg PO DAILY 02/07/17 [History] Multivitamin [Multi-Day Vitamins] 1 each PO DAILY 02/07/17 [History] ALPRAZolam [Xanax 0.25 MG Tablet] 0.25 mg PO BID PRN 08/28/17 [History] Allergies/Adverse Reactions: 3 Allergy/AdvReac Type Severity Reaction Status Date / Time No Known Allergies Allergy Verified 02/06/17 08:03 Date of admission: 08/28/17 22:19 Primary care physician: Chuy Lloyd MD Consults: 08/28/17 23:47 Consult to Nutrition [CONS] Routine Comment: Consulting Provider: NUTRITION Reason for Dietary Consult: MST Score Consult to Retail Maintenance Technician [CONS] Routine Reason for SW Consult: Patient is unable to care for self. Stool is under her finger nails. 08/29/17 08:58 Consult to Occupational Therapy [CONS] Routine Comment: Evaluate, develop and implement POC Reason for Consult: Dementia, generalized weakness Consult to Physical Therapy [CONS] Routine Comment: Evaluate, develop and implement POC Reason for Consult: Dementia, generalized weakness Discharging clinician: Tigist Goddard - Patient Status Disposition: Home Health Service Condition: Undetermined Functional capacity at discharge: uses cane/walker Overall status at discharge: patient is progressing back to baseline - Discharge Instructions Instructions: Weakness (GEN) Follow Up With: Chuy Lloyd MD [Primary Care Provider] - 09/05/17 8:30 am - Diet and Activity Activity: as per physical therapy Diet: advance to your usual diet Hospital course: Ms. Kline is a 77 year old female with h/o dementia and hypertension who was brought in by family for further evaluation of generalized weakness. She was unable to provide complete history and her was not at bedside. She denies chest or abdominal pain, dyspnea, dizziness or syncope. She does report generalized weakness, especially in her legs and it has been getting difficult for her to walk independently at home. She does have a walker, however does not like to use it as she gets entangled and it and it causes her to fall. Denies any recent falls. Patient reports that she is usually very healthy and would like to go home today. CBC was within normal limits a BMP showed a sodium of 133, which is her baseline since February 2017, otherwise unremarkable. A urinalysis was negative for UTI, a head CT showed no acute intracranial abnormality, a portable chest x-ray was negative, and EKG showed sinus rhythm without any new ST or T-wave changes. At this point it was most likely that weakness was more so deconditioning related to dementia and less activity. She was placed in observation. Physical therapy and occupational therapy evaluated patient. They noted that she had significant decline in functional status and she would benefit from SNF. Patient had no insurance coverage and her Medicare guidelines there are no findings to pay for rehabilitation., Home health care was set up for patient and she was discharged with setup to home health care. - Time Spent with Patient Total time spent providing and/or coordinating discharge services: - Constitutional Vitals: Temp Pulse Resp BP Pulse Ox 97.8 F 71 16 122/66 93 08/30/17 11:13 08/30/17 11:13 08/30/17 11:13 08/30/17 11:13 08/30/17 11:13 General appearance: Present: A&O X 2 (Disoriented to time and date and year), answers questions appropriately
--- NOTE | 2017-08-30 14:03 | Physician Discharge Referral ---
Home Health/Hosp Referral Info Transfer to: Home Health Provider in Charge Post Discharge: PCP - Diagnosis (1) Generalized weakness Priority: Primary Status: Acute (2) Dementia Priority: Secondary Status: Chronic (3) Essential hypertension Priority: Secondary Status: Chronic - Respiratory Orders Smoking Cessation: Smoking cessation has been advised. For more information, call the [place] Tobacco Quit Line at 6-772-HZJS-NOW. - Services Needed Following services are medically necessary services: Physical Therapy - Transfer Medications Home Medications: Atorvastatin [Lipitor] 40 mg PO HS 02/07/17 [History] Citalopram Hydrobromide [Celexa] 40 mg PO DAILY 02/07/17 [History] Donepezil HCl [Aricept] 5 mg PO HS 02/07/17 [History] Losartan Potassium [Cozaar] 50 mg PO DAILY 02/07/17 [History] Multivitamin [Multi-Day Vitamins] 1 each PO DAILY 02/07/17 [History] ALPRAZolam [Xanax 0.25 MG Tablet] 0.25 mg PO BID PRN 08/28/17 [History] Allergies/Adverse Reactions: 3 Allergy/AdvReac Type Severity Reaction Status Date / Time No Known Allergies Allergy Verified 02/06/17 08:03 Certification: Further, I certify that my clinical findings support that this patient is homebound (i.e. absences from home require considerable and taxing effort and are for medical reasons or sabianism services or infrequently or short duration when for other reasons) because: Homebound Reason: Patient requires assistance of a person or device to safely leave home, Leaving home requires considerable and taxing effort due to condition Attestation: My signature below is to certify that this patient is under my care and that I, or nurse practitioner, or a physician's behavioral health assistant working with me, has a face-to -face encounter with this patient.
== END 2017-08-30 15:13 | disposition home health service (06) ==
LOC: 3NENU 18:32 → EMEROO 18:32 → 3NENU 22:35 → 3BNU 08-30 11:05
PROVIDERS: ADMIT Internal Medicine; ATTEND Internal Medicine

== ENCOUNTER 2018-04-23 09:43 | Observation (INO) ==
[2018-04-23] MEDS ORDERED: 0.9 % Sodium Chloride 1,000 ML IVC ONE (09:49)
[2018-04-23] MEDS ORDERED: Acetaminophen 325 MG TABLET PO ONE (09:51)
--- NOTE | 2018-04-23 09:51 | Emergency Department Note ---
Disposition Clinical Impression: Fever of unknown origin Dementia Qualifiers: Dementia type: unspecified type Dementia behavioral disturbance: with behavioral disturbance Qualified Code(s): F03.91 - Unspecified dementia with behavioral disturbance Fracture of wrist Qualifiers: Encounter type: initial encounter Fracture type: closed Laterality: right Qualified Code(s): S62.101A - Fracture of unspecified carpal bone, right wrist, initial encounter for closed fracture Failure to thrive Qualifiers: Failure to thrive age range: in adult Qualified Code(s): R62.7 - Adult failure to thrive Disposition: Admitted As Inpatient General Adult HPI - General Stated complaint: wrist fracture Time Seen by Provider: 04/23/18 09:46 Nursing Notes Reviewed: Yes Vital Signs Reviewed: Yes - Related Data Home Medications Medication Instructions Recorded Confirmed Atorvastatin [Lipitor] 40 mg PO HS 02/07/17 04/23/18 Citalopram Hydrobromide [Celexa] 40 mg PO DAILY 02/07/17 04/23/18 Donepezil HCl [Aricept] 5 mg PO HS 02/07/17 04/23/18 Losartan Potassium [Cozaar] 50 mg PO DAILY 02/07/17 04/23/18 ALPRAZolam [Xanax 0.25 MG Tablet] 0.25 mg PO BID PRN 08/28/17 04/23/18 Multivitamin [One Daily Essential] 1 tab PO DAILY 04/23/18 04/23/18 Allergies Allergy/AdvReac Type Severity Reaction Status Date / Time No Known Allergies Allergy Verified 04/23/18 11:14 Past Medical History - Past Medical History Medical history: Reports: dementia, hypertension, other Surgical history: Reports: hysterectomy Psychiatric history: Reports: no psych history 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: Reports: no STEAMBOAT 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 - Social History Smoking Status: Current some day smoker Smokeless Tobacco Status: No Alcohol use: Reports: none Drug use: Reports: none Course Vital Signs Temperature 101.1 F H 04/23/18 09:46 Pulse Rate 86 04/23/18 09:46 Respiratory Rate 16 04/23/18 09:46 Blood Pressure 118/51 04/23/18 09:46 O2 Sat by Pulse Oximetry 93 04/23/18 09:46 Temperature 98.6 F 04/23/18 15:48 Pulse Rate 89 04/23/18 15:48 Respiratory Rate 16 04/23/18 15:48 Blood Pressure 119/67 04/23/18 15:48 O2 Sat by Pulse Oximetry 93 04/23/18 15:48 Oxygen Delivery Oxygen Delivery Room Air Medical Decision Making - MDM Narrative Medical decision making narrative: 1030 hrs.: I do not seem bleed on her head CT waiting on radiology's official read. She does have a fracture of her right wrist. This does look impacted. I am going to go ahead and put her in a splint and then we will wait for the reasons on her films and all her lab work to come back and then admission. 1030 hrs.: Patient in EKG performed shows a sinus rhythm, rate is 84, QRS is 81 , QTC is 387, has a left anterior fascicular block and Q waves in inferior leads no signs of acute ischemia, compared this with an EKG done back in 2017 shows no changes except for rate. Cervical Spine CT 04/23/18 09:49 IMPRESSION: No acute abnormality of the cervical spine. Unchanged appearance of the cervical spine notable for multilevel degenerative change. D/ / Aldo Perkins / Aldo Perkins Interpreting Provider: Aldo Perkins Head CT 04/23/18 09:49 IMPRESSION: No acute intracranial abnormality. D/ / Kj Montoya MD / Kj Monotya MD Interpreting Provider: Kj Montoya MD Wrist X-Ray 04/23/18 09:49 IMPRESSION: Comminuted dorsally angulated fracture of the distal radius. Minimally displaced ulnar styloid process fracture. D/ / Aldo Perkins / Aldo Perkins Interpreting Provider: Aldo Perkins Chest X-Ray 04/23/18 09:51 IMPRESSION: Unchanged appearance of the chest without acute airspace disease identified. D/ / Aldo Perkins / Aldo Perkins Interpreting Provider: Aldo Perkins 1115 hrs.: Sugar tong splint was placed onto her right arm this was done by the nuclear medicine technologist under our direction. Has good immobilization, N/V intatc and good cap refill. - Lab Data Result diagrams: 04/23/18 09:51 04/23/18 09:51 Lab Results 04/23/18 04/23/18 04/23/18 Range/Units 09:51 09:51 10:50 WBC 10.2 (4.3-11.1) K/mcL RBC 4.16 (3.82-4.97) M/mcL Hgb 12.8 (11.5-15.4) g/dL Hct 38.7 (35.3-44.9) % MCV 93.0 (83.0-100.0) fL MCH 30.8 (28.0-33.3) pg MCHC 33.1 (31.6-35.5) g/dL RDW 14.6 H (11.5-14.5) % Plt Count 261 (140-400) K/mcL MPV 8.6 L (9.4-12.4) fL Immature Gran % Test Not Performed Seg Neutrophils % 78.0 % Lymphocytes % 20.0 % Monocytes % 2.0 % Eosinophils % Test Not Performed Basophils % Test Not Performed Neutrophils # 8.0 (1.6-8.9) K/mcL Lymphocytes # 2.0 (0.6-4.6) K/mcL Monocytes # 0.2 (0.0-1.3) K/mcL Eosinophils # Test Not Performed Basophils # Test Not Performed Platelet Estimate Normal (Normal) Sodium 134 L (136-145) mEq/L Potassium 4.2 (3.5-5.1) mEq/L Chloride 100 (98-107) mEq/L Carbon Dioxide 28 (23-29) mEq/L BUN 13 (8-23) mg/dL Creatinine 0.65 (0.60-1.20) mg/dL Est GFR ( Amer) > 60 (> 60) Est GFR (Non-Af Amer) > 60 (> 60) BUN/Creatinine Ratio 20 (6-26) Glucose 157 H (70-105) mg/dL Calculated Osmolality 281 (280-300) Calcium 9.8 (8.6-10.3) mg/dL Creatine Kinase 49 (30-223) Units/L Urine Color Yellow (Yellow) Urine Clarity Clear (Clear) Urine pH 6.0 (5.0-8.0) pH Units Ur Specific [place] 1.020 (1.010-1.025) Urine Protein Trace (Neg-Trace) mg/dL Urine Glucose (UA) Normal (Normal) mg/dL Urine Ketones Negative (Negative) mg/dL Urine Blood Moderate H (Negative) Urine Nitrite Negative (Negative) Urine Bilirubin Negative (Negative) Urine Urobilinogen Normal (Normal) mg/dL Ur Leukocyte Esterase Negative (Negative) Urine Microscopic WBC 5-15 H (0-3) per hpf Ur Squamous Epith Cells Many H (None-Few) per lpf Urine Bacteria None Seen (None-Few) per hpf Hyaline Casts None Seen (None-Few) per lpf Urine Yeast Moderate H (None Seen) per hpf Ur Culture Indicated? NO (NO) Ethyl Alcohol < 10 (Less than 10) mg/dL Attestation Statement - Attestation Attestation: This documentation is done with the assistance of Dragon dictation. Despite efforts made to ensure accuracy, there may be inaccuracies in pack puller or spelling and typographical errors. I examined this patient and my medical decision-making was reviewed with the Resident Physician. I agree with the documented findings, disposition and treatment plan as described except to the extent set forth below. Patient seen in evaluation with EMS and Dr. Hua on arrival, I agree with her evaluation and management plan, I supervised the care of the patient's stay. Patient comes in from a fall at home with an obvious deformity right wrist. Medics states the houses cluttered little bit dirty but looks like she is a fairly well taken care of but did ask for social service involvement. Patient pleasantly demented complains of pain in her wrist but nothing else. On triage vital she does have a fever. She has dirt underneath her fingernails and dried fecal matter as well as dirt on her face. We will order a workup on her give her something for fever check urinalysis x-ray her wrist and then reassess. She is in agreement with this plan. Family are not here at this point.
--- NOTE | 2018-04-23 10:00 | Emergency Department Note ---
Disposition Clinical Impression: Fever of unknown origin Dementia Qualifiers: Dementia type: unspecified type Dementia behavioral disturbance: with behavioral disturbance Qualified Code(s): F03.91 - Unspecified dementia with behavioral disturbance Fracture of wrist Qualifiers: Encounter type: initial encounter Fracture type: closed Laterality: right Qualified Code(s): S62.101A - Fracture of unspecified carpal bone, right wrist, initial encounter for closed fracture Failure to thrive Qualifiers: Failure to thrive age range: in adult Qualified Code(s): R62.7 - Adult failure to thrive Disposition: Admitted As Inpatient Referrals: Chuy Lloyd MD [Primary Care Provider] - Forms: ED Satisfaction Letter General Adult HPI - General Chief complaint: ED Fall Stated complaint: wrist fracture Time Seen by Provider: 04/23/18 09:46 Source: patient Limitations: no limitations Nursing Notes Reviewed: Yes Vital Signs Reviewed: Yes - History of Present Illness HPI Narrative: Ground-level fall overnight. Deformity erythema and ecchymosis to right distal radius. No other signs of trauma. Patient's pleasantly demented. Pain Scale: 0 - Related Data Home Medications Medication Instructions Recorded Confirmed Atorvastatin [Lipitor] 40 mg PO HS 02/07/17 08/28/17 Citalopram Hydrobromide [Celexa] 40 mg PO DAILY 02/07/17 08/28/17 Donepezil HCl [Aricept] 5 mg PO HS 02/07/17 08/28/17 Losartan Potassium [Cozaar] 50 mg PO DAILY 02/07/17 08/28/17 ALPRAZolam [Xanax 0.25 MG Tablet] 0.25 mg PO BID PRN 08/28/17 08/28/17 Multivitamin [One Daily Essential] 1 tab PO DAILY 04/23/18 04/23/18 Allergies Allergy/AdvReac Type Severity Reaction Status Date / Time No Known Allergies Allergy Verified 04/23/18 11:14 Limitations: ROS unobtainable due to patients medical condition Past Medical History - Past Medical History Attestation: Yes The following information was validated with the patient. 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 TEST history - Social History Smoking Status: Current some day smoker Smokeless Tobacco Status: No Alcohol use: Reports: none Drug use: Reports: none Physical Exam - General Limitations: altered mental status (Pleasantly demented) General appearance: alert - Head Head exam: atraumatic, normocephalic, normal inspection - Eye Eye exam: Present: normal appearance, PERRL, EOMI - ENT ENT exam: normal exam, normal oropharynx, mucous membranes moist - Neck Neck exam: Present: normal inspection, full ROM, trachea midline - Chest Chest inspection: Present: normal inspection, symmetric chest wall rise - Respiratory Respiratory exam: Present: normal lung sounds bilaterally. Absent: respiratory distress, accessory muscle use - Cardiovascular Cardiovascular exam: Present: regular rate, normal rhythm, normal heart sounds - Abdominal Exam Abdominal exam: Present: soft, Non-Tender. Absent: tenderness, distention, guarding, rebound, rigidity, organomegaly - Extremities Exam Extremities exam: Present: normal capillary refill, other (Erythema ecchymosis and deformity to right distal radius. Does have what appears to be an old deformity to the left radius. We did a chart surgeon she does have a previous fracture over a year ago to the left radius. There is no ecchymosis on the left.). Absent: tenderness, pedal edema - Expanded Lower Extremity Exam Hip/Pelvis exam: Present: normal inspection, full ROM. Absent: tenderness, swelling Upper leg exam: Present: normal inspection Knee exam: Present: normal inspection, full ROM Lower leg exam: Present: normal inspection, full ROM Ankle exam: Present: normal inspection, full ROM - Back Exam Back exam: Present: normal inspection, full ROM. Absent: tenderness - Neurological Exam Neurological exam: Present: alert, other (Pleasantly demented. Unaware of the year. Does not she is in hospital.) - Psychiatric Psychiatric exam: Present: normal affect, normal mood - Skin Skin exam: Present: warm, dry, intact Course Course Narrative: Female patient presenting to the emergency department after sustaining a ground- level fall overnight. She lives alone with her . She is pleasantly demented at this time. She thinks it is 1940. She has deformity and ecchymosis to her right distal radius area. She has full range of motion of her fingers. She denies any pain anywhere. She does have a history of dementia. I do not appreciate any signs of trauma to her head. Patient has dirt under her fingernails and extensively across her body. Her clothes appear to be dirty as well. Patient's lung sounds are clear and heart sounds are normal. Her abdomen is soft and nontender. I do not appreciate any gross deformity to her lower extremities. Her pelvis is stable. We will get a CT of patient's head and neck. We will also get imaging of her right wrist. Patient does have a fever. We will provide her with Tylenol for her wrist fracture and for the fever. - Reevaluation(s) Reevaluation #1: I spoke with the who is at bedside now. He states that he is unaware when the patient actually fell however he does believe is overnight. He states that she did not have a deformity or redness to her arm prior to going to bed last night. Is able to help her up but then called 911 when he noticed arm. Social work spoke with him at length as well. She is advising that he told her he there are behaviors that he cannot help control while there at home. She states that she will put an Astra in her face and rub the ashes around. He is unable to take care of her further at home so we will admit to the hospital for her fracture and deconditioning. Her labs are still pending. Her head CT did not show any signs of bleeding however she does have a right comminuted transversely oriented fracture of the distal radius with dorsal angulation and ulnar styloid process fracture. We have placed the patient in a splint. The splint was placed by the aerial survey technician. The splint was made by us. Good capillary refill prior to and after splint placement. She tolerated this well. Time: 10:58 - Consultations Consultation #1: I spoke with Dr. Campbell. He states that he will see the patient will she is in the hospital. He requested the patient be placed in a sugar tong splint. This is enriquez been done. Time: 11:42 Consultation #2: Dr phipps accepted Pt in stable condition. Time: 11:48 Vital Signs Temperature 101.1 F H 04/23/18 09:46 Pulse Rate 86 04/23/18 09:46 Respiratory Rate 16 04/23/18 09:46 Blood Pressure 118/51 04/23/18 09:46 O2 Sat by Pulse Oximetry 93 04/23/18 09:46 Temperature 101.1 F H 04/23/18 09:46 Pulse Rate 88 04/23/18 11:22 Respiratory Rate 22 04/23/18 11:22 Blood Pressure 129/59 04/23/18 11:22 O2 Sat by Pulse Oximetry 94 04/23/18 11:22 Oxygen Delivery Oxygen Delivery Room Air Medical Decision Making - Medical Records Medical records reviewed: Yes I reviewed the patient's medical records. - Lab Data Lab results reviewed: Yes I reviewed the patient's lab results. Result diagrams: 04/23/18 09:51 04/23/18 09:51 Lab Results 04/23/18 04/23/18 04/23/18 Range/Units 09:51 09:51 10:50 WBC 10.2 (4.3-11.1) K/mcL RBC 4.16 (3.82-4.97) M/mcL Hgb 12.8 (11.5-15.4) g/dL Hct 38.7 (35.3-44.9) % MCV 93.0 (83.0-100.0) fL MCH 30.8 (28.0-33.3) pg MCHC 33.1 (31.6-35.5) g/dL RDW 14.6 H (11.5-14.5) % Plt Count 261 (140-400) K/mcL MPV 8.6 L (9.4-12.4) fL Immature Gran % Test Not Performed Seg Neutrophils % 78.0 % Lymphocytes % 20.0 % Monocytes % 2.0 % Eosinophils % Test Not Performed Basophils % Test Not Performed Neutrophils # 8.0 (1.6-8.9) K/mcL Lymphocytes # 2.0 (0.6-4.6) K/mcL Monocytes # 0.2 (0.0-1.3) K/mcL Eosinophils # Test Not Performed Basophils # Test Not Performed Platelet Estimate Normal (Normal) Sodium 134 L (136-145) mEq/L Potassium 4.2 (3.5-5.1) mEq/L Chloride 100 (98-107) mEq/L Carbon Dioxide 28 (23-29) mEq/L BUN 13 (8-23) mg/dL Creatinine 0.65 (0.60-1.20) mg/dL Est GFR ( Amer) > 60 (> 60) Est GFR (Non-Af Amer) > 60 (> 60) BUN/Creatinine Ratio 20 (6-26) Glucose 157 H (70-105) mg/dL Calculated Osmolality 281 (280-300) Calcium 9.8 (8.6-10.3) mg/dL Creatine Kinase 49 (30-223) Units/L Urine Color Yellow (Yellow) Urine Clarity Clear (Clear) Urine pH 6.0 (5.0-8.0) pH Units Ur Specific [place] 1.020 (1.010-1.025) Urine Protein Trace (Neg-Trace) mg/dL Urine Glucose (UA) Normal (Normal) mg/dL Urine Ketones Negative (Negative) mg/dL Urine Blood Moderate H (Negative) Urine Nitrite Negative (Negative) Urine Bilirubin Negative (Negative) Urine Urobilinogen Normal (Normal) mg/dL Ur Leukocyte Esterase Negative (Negative) Urine Microscopic WBC 5-15 H (0-3) per hpf Ur Squamous Epith Cells Many H (None-Few) per lpf Urine Bacteria None Seen (None-Few) per hpf Hyaline Casts None Seen (None-Few) per lpf Urine Yeast Moderate H (None Seen) per hpf Ur Culture Indicated? NO (NO) Ethyl Alcohol < 10 (Less than 10) mg/dL - Radiology Data Radiology results reviewed: Yes I reviewed the patient's radiology results. Cervical Spine CT 04/23/18 09:49 IMPRESSION: No acute abnormality of the cervical spine. Unchanged appearance of the cervical spine notable for multilevel degenerative change. D/ / Aldo Perkins / Aldo Perkins Interpreting Provider: Aldo Perkins Head CT 04/23/18 09:49 IMPRESSION: No acute intracranial abnormality. D/ / Kj Montoya MD / Kj Montoya MD Interpreting Provider: Kj Montoya MD Wrist X-Ray 04/23/18 09:49 IMPRESSION: Comminuted dorsally angulated fracture of the distal radius. Minimally displaced ulnar styloid process fracture. D/ / Aldo Perkins / Aldo Perkins Interpreting Provider: Aldo Perkins Chest X-Ray 04/23/18 09:51 IMPRESSION: Unchanged appearance of the chest without acute airspace disease identified. D/ / Aldo Perkins / Aldo Perkins Interpreting Provider: Aldo Perkins
[2018-04-23 10:19] LABS: Hematocrit 38.7 % (35.3-44.9); Hemoglobin 12.8 g/dL (11.5-15.4); Mean Corpuscular HGB Conc 33.1 g/dL (31.6-35.5); Mean Corpuscular Hemoglobin 30.8 pg (28.0-33.3); Mean Platelet Volume 8.6 fL (9.4-12.4); Platelet Count 261 K/mcL (140-400); Red Blood Count 4.16 M/mcL (3.82-4.97); Red Cell Distribution Width 14.6 % (11.5-14.5)
[2018-04-23 10:32] LABS: BUN/Creatinine Ratio 20 (6-26); Blood Urea Nitrogen 13 mg/dL (8-23); Calcium 9.8 mg/dL (8.6-10.3); Carbon Dioxide 28 mEq/L (23-29); Chloride 100 mEq/L (98-107); Ethanol < 10 mg/dL (Less than 10); Glucose 157 mg/dL (70-105); Osmolality,Calculated 281 (280-300); Potassium 4.2 mEq/L (3.5-5.1); Sodium 134 mEq/L (136-145); eGFR For African Americans > 60 (> 60); eGFR For Non-African Americans > 60 (> 60)
[2018-04-23 11:04] LABS: Bilirubin,Urine Negative (Negative); Blood,Urine Moderate (Negative); Clarity,Urine Clear (Clear); Color,Urine Yellow (Yellow); Glucose,Urine (UA) Normal (Normal); Ketones,Urine Negative (Negative); Leukocyte Esterase,Urine Negative (Negative); Nitrite,Urine Negative (Negative); Protein,Urine Trace mg/dL (Neg-Trace); Urobilinogen,Urine Normal (Normal)
[2018-04-23 11:07] LABS: Bacteria,Urine None Seen per hpf (None-Few); Hyaline Casts,Urine None Seen per lpf (None-Few); Squamous Epithelial Cell,Urine Many per lpf (None-Few)
[2018-04-23 11:16] LABS: Yeast,Urine Moderate per hpf (None Seen)
[2018-04-23 11:17] LABS: Creatine Kinase 49 Units/L (30-223)
[2018-04-23 11:24] LABS: Monocytes # 0.2 K/mcL (0.0-1.3); Platelet Estimate Normal (Normal)
[2018-04-23] MEDS ORDERED: ALPRAZolam 0.25 MG TABLET PO PRN (12:03)
[2018-04-23] MEDS ORDERED: *HR* HYDROcodone/Acet 5/325 mg TABLET PO PRN (12:08)
[2018-04-23] MEDS ORDERED: Acetaminophen 325 MG TABLET PO PRN (12:08)
[2018-04-23] MEDS ORDERED: Naloxone 0.4 MG/ML INJ IVP PRN (12:08)
[2018-04-23] MEDS ORDERED: Multivit/Ca/Min/Fe/FA 1 TAB TABLET PO SCH (12:15)
[2018-04-23] MEDS: 0.9 % Sodium Chloride 1,000 ML IVC SCH (14:07)
--- NOTE | 2018-04-23 15:07 | Internal Med History&Physical ---
Date of Encounter: 04/23/18 Time of Encounter: 12:47 Internal Medicine - H&P: HPI Chief complaint: "Fall and hurt right arm" Admitted From: Emergency Dept Plans for Post Hospital Care: Transfer Device Test Engineer Care History of present illness: Ms. Kline is a 78 year old female with PMH of dementia who presents to ED today from home after ground level fall with right wrist injury. She is pleasantly demented and is not able to provide much history. is in room and provides most of history. he states that she fell out of her bed this morning. She hurt her right wrist. Patient lives at home with . states that she has been falling more recently and he is having a hard time taking care of her. She denies trauma to her head. She denies fever, chills, chest pain, SOB, nausea, abdominal pain, changes in bladder, and changes in bowels. In the ED, CT head showed no acute process. CXR showed no acute cardiopulmonary process. Cervical spine CT showed now acute abnormality. Right wrist x-ray showed right comminuted transversely oriented fracture of the distal radius with dorsal angulation and ulnar styloid process fracture. ED physician splinted right arm and consulted orthopedics. Pain is controlled at this time with tylenol. She has no other complaints at this time. She remains in good spirits. Past Med Surg Social Fam HX - Past Medical History Attestation: Yes The following information was validated with the patient. Source: obtained from family Medical history: dementia, hypertension, other Additional medical history: encephalitis, Alzheimers, Uterine Cancer. Psychiatric history: no psych history - Past Surgical History Surgical History: hysterectomy - Social History Smoking Status: Current some day smoker Smokeless Tobacco Status: No Alcohol use: none Drug use: none - Additional Family History Additional family history: No significant family history per patient and . Internal Medicine - H&P: Meds Atorvastatin [Lipitor] 40 mg PO HS 02/07/17 [History] Citalopram Hydrobromide [Celexa] 40 mg PO DAILY 02/07/17 [History] Donepezil HCl [Aricept] 5 mg PO HS 02/07/17 [History] Losartan Potassium [Cozaar] 50 mg PO DAILY 02/07/17 [History] ALPRAZolam [Xanax 0.25 MG Tablet] 0.25 mg PO BID PRN 08/28/17 [History] Multivitamin [One Daily Essential] 1 tab PO DAILY 04/23/18 [History] 3 Allergy/AdvReac Type Severity Reaction Status Date / Time No Known Allergies Allergy Verified 04/23/18 11:14 All Systems PM: A 10-system review of systems was performed and is negative for pertinent findings except as documented above in the HPI. - Constitutional Vitals: Temp Pulse Resp BP Pulse Ox 98.7 F 83 18 122/65 91 04/23/18 12:55 04/23/18 12:55 04/23/18 12:55 04/23/18 12:55 04/23/18 12:55 General appearance: Present: cooperative, A&O X 3, pleasant, no acute distress, answers questions appropriately - Head Head exam: Present: atraumatic, normal inspection, normocephalic - Eye Eye exam: Present: EOMI, PERRL. Absent: conjunctival injection, nystagmus, scleral icterus - ENT ENT exam: Present: mucous membranes moist, normal external ear exam, normal oropharynx - Neck Neck exam general surgery: Present: supple, trachea midline. Absent: lymphadenopathy, tenderness, thyromegaly - Respiratory Respiratory exam: Present: CTAB. Absent: accessory muscle use, rales, rhonchi, wheezes Additional comments: Normal WOB - Cardiovascular Cardiovascular exam: Present: RRR, +S1, +S2. Absent: diastolic murmur, gallop, rubs, systolic murmur Additional comments: No BLE edema - GI/Abdominal GI/Abdominal exam: Present: normal bowel sounds, soft. Absent: distended, hepatomegaly, mass, splenomegaly, tenderness - Extremities Exam Additional comments: Right arm/wrist in splint and bandaging - Neurological Exam Neurological exam: Present: alert, CN II-XII intact, oriented X3, no focal deficits, strengths equal and symetr throughout. Absent: motor sensory deficit , facial droop, speech deficit - Psychiatric Psychiatric exam: Present: normal affect, normal mood. Absent: agitated, anxious, depressed - Skin Skin exam: Present: dry, intact, warm. Absent: cyanosis, rash Internal Med - H&P Results - Labs CBC & Chem 7: 04/23/18 09:51 04/23/18 09:51 - Assessment and plan (1) Fracture of wrist Current Visit: Yes Status: Acute Assessment and plan: Admit for observation. Orthopedics consulted; appreciate input. Continue splint and bandaging as applied in ED. Continue tylenol and norco PRN for pain. PT/OT consulted. SW consulted for placement. Qualifiers: Encounter type: initial encounter Fracture type: closed Laterality: right Qualified Code(s): S62.101A - Fracture of unspecified carpal bone, right wrist, initial encounter for closed fracture (2) Generalized weakness Current Visit: Yes Status: Acute Assessment and plan: PT/OT consulted as per above. Social work consulted for placement. (3) Dementia Current Visit: Yes Status: Chronic Assessment and plan: Continue home medications. Qualifiers: Dementia type: unspecified type Dementia behavioral disturbance: with behavioral disturbance Qualified Code(s): F03.91 - Unspecified dementia with behavioral disturbance (4) Essential hypertension Current Visit: Yes Status: Chronic Assessment and plan: Continue home medications. (5) Anxiety Current Visit: Yes Status: Chronic Assessment and plan: Continue home medications. (6) DVT prophylaxis Current Visit: Yes Status: Acute Assessment and plan: Start lovenox 40 mg SQ QD and SCDs. - Time Spent With Patient Total time spent is greater than 50% in coordination of care (as documented) at patient's floor/unit and/or counseling patient: less than 15 minutes
[2018-04-23] MEDS: *HR* Enoxaparin 40 MG/0.4 ML SYRINGE SQ SCH (18:03)
--- NOTE | 2018-04-23 22:29 | Orthopedic Consult Note ---
Date of Encounter: 04/23/18 Time of Encounter: 17:00 Assessment and Plan (1) Fracture of wrist Current Visit: Yes Status: Acute I did discuss the diagnosis in detail with the patient who is alone at the bedside. She has a right distal radius fracture as described above. Given her age and activity level as well as baseline dementia my recommendation was for nonoperative management. I did recommend an attempt at closed reduction to possibly achieve improved alignment. After verbal consent was obtained I did inject 10 mL 1% plain lidocaine into the fracture hematoma and performed a closed reduction maneuver followed by placement of a sugar tong splint which I molded. X-rays confirmed improved alignment. No pushing, pulling, or lifting with the right upper extremity. She can use a platform walker if needed. Follow-up in the office in 1 week for clinical reevaluation and radiographs and placement in a cast. Orthopedically stable for discharge. Qualifiers: Encounter type: initial encounter Fracture type: closed Laterality: right Qualified Code(s): S62.101A - Fracture of unspecified carpal bone, right wrist, initial encounter for closed fracture History of Present Illness HPI: Ms. Kline is a 78 year old female who is admitted to the hospitalist after a fall out of bed this morning resulted in a right distal radius fracture. I am consulted to assist in the evaluation and management of this patient. She complains of isolated right wrist pain and denies any other injury. The pain is worse with movement and use and better with rest. No other modifying factors. There is no associated numbness, tingling, or other signs or symptoms. She has baseline dementia but is able to provide a reasonable history. She apparently has been having recent falls. She denies any headaches , neck pain, chest pain, abdominal pain, left upper extremity pain, and bilateral lower extremity pain. Past Med Surg Social Fam HX - Past Medical History Medical history: dementia, hypertension, other Additional medical history: encephalitis, Alzheimers, Uterine Cancer. Psychiatric history: no psych history - Past Surgical History Surgical History: hysterectomy - Social History Smoking Status: Current some day smoker Smokeless Tobacco Status: No Alcohol use: none Drug use: none Medications and Allergies Atorvastatin [Lipitor] 40 mg PO HS 02/07/17 [History] Citalopram Hydrobromide [Celexa] 40 mg PO DAILY 02/07/17 [History] Donepezil HCl [Aricept] 5 mg PO HS 02/07/17 [History] Losartan Potassium [Cozaar] 50 mg PO DAILY 02/07/17 [History] ALPRAZolam [Xanax 0.25 MG Tablet] 0.25 mg PO BID PRN 08/28/17 [History] Multivitamin [One Daily Essential] 1 tab PO DAILY 04/23/18 [History] 3 Allergy/AdvReac Type Severity Reaction Status Date / Time No Known Allergies Allergy Verified 04/23/18 11:14 All Systems Reviewed: Constitutional and musculoskeletal systems were reviewed and are negative unless otherwise stated in history of present illness. Physical Exam - Constitutional Vitals: Temp Pulse Resp BP Pulse Ox 98.8 F 86 16 108/57 90 04/23/18 19:38 04/23/18 19:38 04/23/18 19:38 04/23/18 19:38 04/23/18 19:38 Constitutional -Vitals reviewed -The patient is well developed and well nourished. -Mood is pleasant. -The patient is well groomed. Psychiatric -The patient is fully alert and oriented x 3. Respiratory: -Respiratory effort normal Abdomen: -Soft abdomen -Non tender -Non distended: Left upper extremity: -No deformities. The overlying skin is intact. No obvious signs of acute trauma. -No tenderness to palpation throughout. -No significant pain with passive motion of the shoulder, elbow, wrist, and fingers within the limits of the bed. -Able to make an "OK" sign, cross the index and long fingers, and extend the thumb. -Sensation grossly intact to light touch throughout the median, radial, and ulnar distributions. -Radial pulse is present; Fingers have good capillary refill. Right upper extremity: -Minimal clinical deformity to the wrist. The overlying skin is intact. No obvious signs of acute trauma. -Tenderness to palpation over the wrist. No other tenderness noted. -Pain with any motion of the wrist. -Able to make an "OK" sign, cross the index and long fingers, and extend the thumb. -Sensation grossly intact to light touch throughout the median, radial, and ulnar distributions. -Radial pulse is present; Fingers have good capillary refill. Left lower extremity: -No deformities. The overlying skin is intact. No obvious signs of acute trauma. -No tenderness to palpation throughout. -No pain with passive motion of the hip, knee, ankle, and toes within the limits of the bed. -No pain with axial loading of the thigh. -Able to dorsiflex and plantarflex the ankle and toes. -Sensation is grossly intact to light touch throughout the sural, saphenous, superficial peroneal, and deep peroneal distributions. -Toes have good capillary refill. Right lower extremity: -No deformities. The overlying skin is intact. No obvious signs of acute trauma. -No tenderness to palpation throughout. -No pain with passive motion of the hip, knee, ankle, and toes within the limits of the bed. -No pain with axial loading of the thigh. -Able to dorsiflex and plantarflex the ankle and toes. -Sensation is grossly intact to light touch throughout the sural, saphenous, superficial peroneal, and deep peroneal distributions. -Toes have good capillary refill. Diagnostic Imaging: I did personally review and interpret x-rays of the right wrist which show a distal radius fracture with apex volar angulation and dorsal comminution and impaction. There is a small ulnar styloid fracture. Results - Labs Result Diagrams: 04/23/18 09:51 04/23/18 09:51 Labs: Abnormal lab results RDW 14.6 % (11.5-14.5) H 04/23/18 09:51 MPV 8.6 fL (9.4-12.4) L 04/23/18 09:51 Sodium 134 mEq/L (136-145) L 04/23/18 09:51 Glucose 157 mg/dL (70-105) H 04/23/18 09:51 Urine Blood Moderate (Negative) H 04/23/18 10:50 Urine Microscopic WBC 5-15 per hpf (0-3) H 04/23/18 10:50 Ur Squamous Epith Cells Many per lpf (None-Few) H 04/23/18 10:50 Urine Yeast Moderate per hpf (None Seen) H 04/23/18 10:50 All other labs normal. Consult Discharge Plan - Plan Referrals: Chuy Lloyd MD [Primary Care Provider] -
[2018-04-24] MEDS: 0.9 % Sodium Chloride 1,000 ML IVC SCH (02:10)
[2018-04-24 05:04] LABS: Basophils % 0.3 %; Eosinophils % 0.1 %; Hematocrit 31.8 % (35.3-44.9); Hemoglobin 10.4 g/dL (11.5-15.4); Immature Granulocytes % 2.1 % (0-4); Lymphocytes # 2.3 K/mcL (0.6-4.6); Lymphocytes % 32.7 %; Mean Corpuscular HGB Conc 32.7 g/dL (31.6-35.5); Mean Corpuscular Volume 94.6 fL (83.0-100.0); Mean Platelet Volume 8.8 fL (9.4-12.4); Monocytes % 14.1 %; Neutrophils # 3.6 K/mcL (1.6-8.9); Platelet Count 223 K/mcL (140-400); Red Blood Count 3.36 M/mcL (3.82-4.97); Red Cell Distribution Width 14.4 % (11.5-14.5); Segmented Neutrophils % 50.7 %
[2018-04-24 05:22] LABS: BUN/Creatinine Ratio 24 (6-26); Blood Urea Nitrogen 12 mg/dL (8-23); Calcium 8.6 mg/dL (8.6-10.3); Carbon Dioxide 23 mEq/L (23-29); Chloride 103 mEq/L (98-107); Chol/HDL Ratio 2.6 (0-4.9); Cholesterol 110 mg/dL (< 200); Glucose 98 mg/dL (70-105); HDL Cholesterol 43 mg/dL (40-59); LDL Cholesterol,Calculated 55 mg/dL (0-99); Magnesium 1.9 mg/dL (1.6-2.6); Osmolality,Calculated 278 (280-300); Potassium 3.5 mEq/L (3.5-5.1); Sodium 134 mEq/L (136-145); Triglycerides 58 mg/dL (< 150); eGFR For African Americans > 60 (> 60); eGFR For Non-African Americans > 60 (> 60)
[2018-04-24] MEDS ORDERED: Multivit/Ca/Min/Fe/FA 1 TAB TABLET PO SCH (09:00)
[2018-04-24] MEDS: *HR* Enoxaparin 40 MG/0.4 ML SYRINGE SQ SCH (09:25)
[2018-04-24 11:50] VITALS: BP 116/57
--- NOTE | 2018-04-24 12:38 | Physician Discharge Referral ---
Home Health/Hosp Referral Info Transfer to: Home Health Provider in Charge Post Discharge: PCP - Diagnosis (1) Generalized weakness Priority: Secondary Status: Acute (2) Essential hypertension Priority: Secondary Status: Chronic (3) Dementia Priority: Secondary Status: Chronic (4) Fracture of wrist Priority: Primary Status: Acute (5) Anxiety Priority: Secondary Status: Chronic - Respiratory Orders Smoking Cessation: Smoking cessation has been advised. For more information, call the [place] Tobacco Quit Line at 2-807-GEHO-NOW. - Diet/Nutrition Diet/Nutrition Orders: Regular - Activity Activity Orders: Chair - Services Needed Following services are medically necessary services: Physical Therapy, Occupational Therapy - Transfer Medications Home Medications: Atorvastatin [Lipitor] 40 mg PO HS 02/07/17 [History] Citalopram Hydrobromide [Celexa] 40 mg PO DAILY 02/07/17 [History] Donepezil HCl [Aricept] 5 mg PO HS 02/07/17 [History] Losartan Potassium [Cozaar] 50 mg PO DAILY 02/07/17 [History] ALPRAZolam [Xanax 0.25 MG Tablet] 0.25 mg PO BID PRN 08/28/17 [History] Multivitamin [One Daily Essential] 1 tab PO DAILY 04/23/18 [History] Allergies/Adverse Reactions: 3 Allergy/AdvReac Type Severity Reaction Status Date / Time No Known Allergies Allergy Verified 04/23/18 11:14 Certification: Further, I certify that my clinical findings support that this patient is homebound (i.e. absences from home require considerable and taxing effort and are for medical reasons or yarsanism services or infrequently or short duration when for other reasons) because: Homebound Reason: Patient requires assistance of a person or device to safely leave home Attestation: My signature below is to certify that this patient is under my care and that I, or nurse practitioner, or a physician's recovery assistant working with me, has a face-to -face encounter with this patient.
--- NOTE | 2018-04-24 12:41 | Discharge Summary ---
<Leora Escalante - Last Filed: 04/24/18 12:39> Date of Encounter: 04/24/18 Time of Encounter: 12:39 - Discharge Diagnosis (1) Generalized weakness Priority: Secondary Status: Acute (2) Essential hypertension Priority: Secondary Status: Chronic (3) Dementia Priority: Secondary Status: Chronic Qualifiers: Dementia type: unspecified type Dementia behavioral disturbance: with behavioral disturbance Qualified Code(s): F03.91 - Unspecified dementia with behavioral disturbance (4) Fracture of wrist Priority: Primary Status: Acute Qualifiers: Encounter type: initial encounter Fracture type: closed Laterality: right Qualified Code(s): S62.101A - Fracture of unspecified carpal bone, right wrist, initial encounter for closed fracture (5) Anxiety Priority: Secondary Status: Chronic Hospital course: Ms. Kline is a 78 year old female with PMH of dementia admitted for fall and right wrist injury. CT head WNL. CT c-spine WNL. Right wrist x-ray showed right comminuted transversely oriented fracture of the distal radius with dorsal angulation and ulnar styloid process fracture. Ortho was consulted and completed a closed reduction at bedside. Pain has been controlled with tylenol. Family asking for patient to be discharged home at this time. Would like PT/OT at home but no nursing services or ECF/SNF. - Time Spent with Patient Total time spent providing and/or coordinating discharge services: - Discharge Medications Home Medications: Atorvastatin [Lipitor] 40 mg PO HS 02/07/17 [History] Citalopram Hydrobromide [Celexa] 40 mg PO DAILY 02/07/17 [History] Donepezil HCl [Aricept] 5 mg PO HS 02/07/17 [History] Losartan Potassium [Cozaar] 50 mg PO DAILY 02/07/17 [History] ALPRAZolam [Xanax 0.25 MG Tablet] 0.25 mg PO BID PRN 08/28/17 [History] Multivitamin [One Daily Essential] 1 tab PO DAILY 04/23/18 [History] Allergies/Adverse Reactions: 3 Allergy/AdvReac Type Severity Reaction Status Date / Time No Known Allergies Allergy Verified 04/23/18 11:14 Date of admission: 04/23/18 11:59 Primary care physician: Chuy Lloyd MD Consults: 04/23/18 12:05 Consult to Occupational Therapy [CONS] Routine Comment: Evaluate, develop and implement POC Reason for Consult: Ground Level Fall, Right Wrist Fracture. Please evaluate, treat, and make rehab recommendations. Does patient have active BEDREST order?: No Is patient medically & hemodynamically stable?: Yes Patient assessed for mobility or mobilized this visit?: No Consult to Physical Therapy [CONS] Routine Comment: Evaluate, develop and implement POC Reason for Consult: Ground Level Fall, Right Wrist Fracture. Please evaluate, treat, and make rehab recommendations. Does patient have active BEDREST order?: No Is patient medically & hemodynamically stable?: Yes Patient assessed for mobility or mobilized this visit?: No Consult to Buckle Gluer [CONS] Routine Reason for SW Consult: Rehab Placement Discharging clinician: Leora Escalante Anticipated date of discharge: 04/24/18 - Constitutional Vitals: Temp Pulse Resp BP Pulse Ox 98.1 F 72 16 116/57 93 04/24/18 11:48 04/24/18 11:48 04/24/18 11:48 04/24/18 11:48 04/24/18 11:48 General appearance: Present: cooperative, pleasant, no acute distress, answers questions appropriately - Head Head exam: Present: atraumatic, normocephalic - Respiratory Respiratory exam: Present: CTAB. Absent: accessory muscle use, rales, rhonchi, wheezes - Cardiovascular Cardiovascular exam: Present: RRR, +S1, +S2. Absent: gallop, rubs - GI/Abdominal GI/Abdominal exam: Present: normal bowel sounds, soft, no peritoneal signs. Absent: distended, tenderness - Extremities Exam Additional comments: Right arm/wrist in splint and bandaging, distal pulses 2+ - Neurological Exam Neurological exam: Present: no focal deficits - Patient Status Disposition: Home Health Service Condition: Fair Overall status at discharge: patient is back to baseline - Discharge Instructions Follow Up With: Chuy Lloyd MD [Primary Care Provider] - 04/30/18 2:30 pm Additional Instructions: Please continue your home medications. Please follow up with your primary care physician in 1 week. Please follow up with orthopedics in 1 week as already scheduled. Please return for any new or worsening symptoms. - Diet and Activity Activity: as per physical therapy Diet: advance to your usual diet - VTE Documentation of Mechanical Device: Intermittent pneumatic compression device <Thallapaneni,Rambabu - Last Filed: 04/24/18 13:10> Date of Encounter: 04/24/18 - Discharge Diagnosis (1) Generalized weakness Status: Acute (2) Essential hypertension Status: Chronic (3) Dementia Status: Chronic Qualifiers: Dementia type: unspecified type Dementia behavioral disturbance: with behavioral disturbance Qualified Code(s): F03.91 - Unspecified dementia with behavioral disturbance (4) Fracture of wrist Status: Acute Qualifiers: Encounter type: initial encounter Fracture type: closed Laterality: right Qualified Code(s): S62.101A - Fracture of unspecified carpal bone, right wrist, initial encounter for closed fracture (5) DVT prophylaxis Status: Acute (6) Anxiety Status: Chronic Hospital course: Ms. Kline is a 78 year old female - Time Spent with Patient Total time spent providing and/or coordinating discharge services: Date of admission: 04/23/18 11:59 Primary care physician: Chuy Lloyd MD Consults: 04/23/18 12:05 Consult to Occupational Therapy [CONS] Routine Comment: Evaluate, develop and implement POC Reason for Consult: Ground Level Fall, Right Wrist Fracture. Please evaluate, treat, and make rehab recommendations. Does patient have active BEDREST order?: No Is patient medically & hemodynamically stable?: Yes Patient assessed for mobility or mobilized this visit?: No Consult to Physical Therapy [CONS] Routine Comment: Evaluate, develop and implement POC Reason for Consult: Ground Level Fall, Right Wrist Fracture. Please evaluate, treat, and make rehab recommendations. Does patient have active BEDREST order?: No Is patient medically & hemodynamically stable?: Yes Patient assessed for mobility or mobilized this visit?: No Consult to Buckle Gluer [CONS] Routine Reason for SW Consult: Rehab Placement - Constitutional Vitals: Temp Pulse Resp BP Pulse Ox 98.1 F 72 16 116/57 93 04/24/18 11:48 04/24/18 11:48 04/24/18 11:48 04/24/18 11:48 04/24/18 11:48 - Attending Attestation I examined this patient and my medical decision-making was reviewed with the Resident Physician Dr. Escalante. I agree with the documented findings, disposition and treatment plan as described except to the extent set forth below. Ms. Kline is a 78 year old female with PMH of dementia admitted for fall and right wrist injury. Right wrist x-ray showed right comminuted transversely oriented fracture of the distal radius with dorsal angulation and ulnar styloid process fracture. Ortho was consulted and completed a closed reduction at bedside. Pt does have spoon fork splint placed in. She is resting comfortably. Family would like to take her home with home PT / OT. So will d/c her home in stable condition today.
--- NOTE | 2018-04-25 08:15 | Electrocardiograph Report ---
[facility] Test Date: 2018-04-23 Pat Name: Annie Kline Department: [id number] Room: 3A13 Gender: F [employer]: : 1940 Requested By: Serge Hodge Order Number: [id number] Reading MD: Js Bernstein Measurements Intervals [place] Rate: 84 P: 72 NC: 189 QRS: -84 QRSD: 81 T: 52 QT: 346 QTc: 387 Interpretive Statements SINUS RHYTHM PATTERN CONSISTENT WITH PULMONARY DISEASE POSSIBLE RIGHT VENTRICULAR CONDUCTION DELAY [RSR (QR) IN V1/V2] LEFT ANTERIOR FASCICULAR BLOCK [QRS AXIS <= -45, QR IN I, RS IN II] INFERIOR MYOCARDIAL INFARCTION [40+ ms Q WAVE AND/OR ST/T ABNORMALITY IN II/aVF], PROBABLY OLD WITH POSTERIOR EXTENSION [PROMIN Electronically Signed On 04-25-2018 8:14:09 EDT by Js Bernstein
== END 2018-04-24 13:36 | disposition home health service (06) ==
LOC: EMEROO 09:43 → INTOOBSV 11:59 → 3ANU 11:59
PROVIDERS: ADMIT Family Medicine; ATTEND Family Medicine

== ENCOUNTER 2018-08-07 04:40 | Observation (INO) ==
[2018-08-07 05:05] LABS: Bilirubin,Urine Negative (Negative); Blood,Urine Moderate (Negative); Clarity,Urine Clear (Clear); Color,Urine Yellow (Yellow); Glucose,Urine (UA) Normal (Normal); Ketones,Urine Negative (Negative); Leukocyte Esterase,Urine Small (Negative); Nitrite,Urine Negative (Negative); Protein,Urine Trace mg/dL (Neg-Trace); Specific Gravity,Urine 1.015 (1.010-1.025); Urobilinogen,Urine Normal (Normal)
[2018-08-07 05:06] LABS: Bacteria,Urine Few per hpf (None-Few); Hyaline Casts,Urine None Seen per lpf (None-Few); RBC,Urine 15-30 per hpf (0-3); Squamous Epithelial Cell,Urine Many per lpf (None-Few); WBC,Urine 0-3 per hpf (0-3)
[2018-08-07 05:14] LABS: Amphetamine Screen,Urine Negative ng/mL (Cutoff=1000); Barbiturate Screen,Urine Negative ng/mL (Cutoff=200); Benzodiazepines Screen,Urine Negative ng/mL (Cutoff=200); Cannabinoid Screen,Urine Negative ng/mL (Cutoff = 50); Cocaine Screen,Urine Negative ng/mL (Cutoff= 300); Opiate Screen,Urine Negative ng/mL (Cutoff=300); Phencyclidine Screen,Urine Negative ng/mL (Cutoff=25)
--- NOTE | 2018-08-07 05:14 | Emergency Department Note ---
Disposition Clinical Impression: Dementia Qualifiers: Dementia type: unspecified type Dementia behavioral disturbance: without behavioral disturbance Qualified Code(s): F03.90 - Unspecified dementia without behavioral disturbance Altered mental status Qualifiers: Altered mental status type: unspecified Qualified Code(s): R41.82 - Altered mental status, unspecified Disposition: Admitted As Inpatient Condition: Good Forms: ED Satisfaction Letter Time of Disposition: 06:26 Altered Mental Status HPI - General Chief Complaint: ED Altered Mental Status Stated Complaint: altered Time Seen by Provider: 08/07/18 04:43 Nursing Notes Reviewed: Yes Vital Signs Reviewed: Yes - History of Present Illness HPI Narrative: 78-year-old female presented to the emergency department with family for having altered mental status. They say that she is now not acting herself so that she seeing her who many years ago. They said that she does have dementia but she is acting a lot more demented than normal. She seems not be making sense and is very lethargic and hard to get up. Patient is also given combative at times. This the last time this happened she had pneumonia as well as a urinary tract infection. That is what they think is going on again. Family states she has had no fevers, chills, nausea, vomiting, shortness of breath, abdominal pain, chest pain, headaches, blurry vision, neck pain, back pain, change in balance, pain with urination, pain or tingling down the arms or legs. All systems ED: reviewed and negative except as stated. Review of Systems: As Per HPI Past Medical History - Past Medical History Attestation: Yes The following information was validated with the patient. Source: patient Physical Exam - General Limitations: no limitations General appearance: alert, in no apparent distress - Head Head exam: atraumatic, normocephalic, normal inspection - Eye Eye exam: Present: normal appearance, PERRL, EOMI - ENT ENT exam: normal exam, normal oropharynx, mucous membranes moist - Neck Neck exam: Present: normal inspection, full ROM, trachea midline - Chest Chest inspection: Present: normal inspection, symmetric chest wall rise - Respiratory Respiratory exam: Present: normal lung sounds bilaterally - Cardiovascular Cardiovascular exam: Present: regular rate, normal rhythm, normal heart sounds - Abdominal Exam Abdominal exam: Present: soft, Non-Tender, normal bowel sounds. Absent: tenderness, distention, guarding, rebound, rigidity - Back Exam Back exam: Present: normal inspection, full ROM. Absent: tenderness, CVA tenderness (R), CVA tenderness (L) - Neurological Exam Neurological exam: Present: alert. Absent: oriented X3 (History of dementia this is normal for her this her baseline) - Skin Skin exam: Present: warm, dry, intact, normal color Course Course Narrative: Will do altered mental status workup including CBC, BMP, urinalysis, and urine drug screen, salicylates, acetaminophen, ethanol. Well-seated chest x-ray and EKG. Vital Signs Temperature 99.1 F 08/07/18 05:36 Pulse Rate 80 08/07/18 05:36 Respiratory Rate 28 08/07/18 05:36 Blood Pressure 167/75 08/07/18 05:36 O2 Sat by Pulse Oximetry 96 08/07/18 05:36 Temperature 99.1 F 08/07/18 05:36 Pulse Rate 80 08/07/18 05:36 Respiratory Rate 28 08/07/18 05:36 Blood Pressure 167/75 08/07/18 05:36 O2 Sat by Pulse Oximetry 96 08/07/18 05:36 Oxygen Delivery Oxygen Delivery Room Air Altered Mental Status - MDM Narrative Medical decision making narrative: Patient's labs all came back with no abnormalities. Patient's urine was normal with no showing no UTI. Chest x-ray had no acute pneumonia or any other acute findings. CT had no acute findings. Spoke with family they still distal like a focal control taking her home as a still fractures altered not acting her normal self or they say she is a lot more weak and unable to stand. They feel they are unable take care of her at home. The daughter does work at [facility] and feels like she would do very good with placement to [facility] but patient is having patient's stay first. They would like patient to be admitted to be further evaluated for this worsening of altered mental status. Patient otherwise has no complaints at this time. Patient is admitted to the hospitalist in stable condition. Spoke with Dr. Sharp agreed to admit the patient to their service. Patient admitted stable condition Chest X-Ray 08/07/18 04:43 IMPRESSION: No acute disease. D/ / Andre Wilson MD / Andre Wilson MD Interpreting Provider: Andre Wilson MD Head CT 08/07/18 05:42 IMPRESSION: Severe small vessel chronic ischemic changes without acute hemorrhage or definite evidence for acute ischemia. Small areas of acute ischemia cannot be excluded. D/ / Andre Wilson MD / Andre Wilson MD Interpreting Provider: Andre Wilson MD - Medical Records Medical records reviewed: Yes I reviewed the patient's medical records. - Lab Data Lab results reviewed: Yes I reviewed the patient's lab results. Result diagrams: 08/07/18 05:00 08/07/18 05:00 Lab Results 08/07/18 08/07/18 08/07/18 Range/Units 04:54 04:54 05:00 WBC 6.5 (4.3-11.1) K/mcL RBC 3.91 (3.82-4.97) M/mcL Hgb 12.1 (11.5-15.4) g/dL Hct 36.6 (35.3-44.9) % MCV 93.6 (83.0-100.0) fL MCH 30.9 (28.0-33.3) pg MCHC 33.1 (31.6-35.5) g/dL RDW 14.6 H (11.5-14.5) % Plt Count 184 (140-400) K/mcL MPV 8.5 L (9.4-12.4) fL Immature Gran % 1.4 (0-4) % Seg Neutrophils % 60.5 % Lymphocytes % 27.7 % Monocytes % 8.2 % Eosinophils % 2.0 % Basophils % 0.2 % Neutrophils # 3.9 (1.6-8.9) K/mcL Lymphocytes # 1.8 (0.6-4.6) K/mcL Monocytes # 0.5 (0.0-1.3) K/mcL Eosinophils # 0.1 (0.0-0.6) K/mcL Basophils # 0.0 (0.0-0.2) K/mcL Sodium (136-145) mEq/L Potassium (3.5-5.1) mEq/L Chloride (98-107) mEq/L Carbon Dioxide (23-29) mEq/L BUN (8-23) mg/dL Creatinine (0.60-1.20) mg/dL Est GFR ( Amer) (> 60) Est GFR (Non-Af Amer) (> 60) BUN/Creatinine Ratio (6-26) Glucose (70-105) mg/dL Calculated Osmolality (280-300) Calcium (8.6-10.3) mg/dL Magnesium (1.6-2.6) mg/dL Lipase (11-82) Units/L Urine Color Yellow (Yellow) Urine Clarity Clear (Clear) Urine pH 8.0 (5.0-8.0) pH Units Ur Specific [place] 1.015 (1.010-1.025) Urine Protein Trace (Neg-Trace) mg/dL Urine Glucose (UA) Normal (Normal) mg/dL Urine Ketones Negative (Negative) mg/dL Urine Blood Moderate H (Negative) Urine Nitrite Negative (Negative) Urine Bilirubin Negative (Negative) Urine Urobilinogen Normal (Normal) mg/dL Ur Leukocyte Esterase Small H (Negative) Urine Microscopic RBC 15-30 H (0-3) per hpf Urine Microscopic WBC 0-3 (0-3) per hpf Ur Squamous Epith Cells Many H (None-Few) per lpf Urine Bacteria Few (None-Few) per hpf Hyaline Casts None Seen (None-Few) per lpf Ur Culture Indicated? NO. A (NO) Salicylates (15.0-30.0) mg/dL Urine Opiates Screen Negative (Rcpbyw=452) ng/mL Acetaminophen (10-20) mcg/mL Ur Barbiturates Screen Negative (Nrumlb=312) ng/mL Ur Phencyclidine Scrn Negative (Cutoff=25) ng/mL Ur Amphetamines Screen Negative (Szhqsz=5434) ng/mL U Benzodiazepines Scrn Negative (Vucxbg=180) ng/mL Urine Cocaine Screen Negative (Cutoff= 300) ng/mL U Marijuana (THC) Screen Negative (Cutoff = 50) ng/mL Ur Drug Screen Interp See Below Ethyl Alcohol (Less than 10) mg/dL 08/07/18 08/07/18 Range/Units 05:00 05:00 WBC (4.3-11.1) K/mcL RBC (3.82-4.97) M/mcL Hgb (11.5-15.4) g/dL Hct (35.3-44.9) % MCV (83.0-100.0) fL MCH (28.0-33.3) pg MCHC (31.6-35.5) g/dL RDW (11.5-14.5) % Plt Count (140-400) K/mcL MPV (9.4-12.4) fL Immature Gran % (0-4) % Seg Neutrophils % % Lymphocytes % % Monocytes % % Eosinophils % % Basophils % % Neutrophils # (1.6-8.9) K/mcL Lymphocytes # (0.6-4.6) K/mcL Monocytes # (0.0-1.3) K/mcL Eosinophils # (0.0-0.6) K/mcL Basophils # (0.0-0.2) K/mcL Sodium 134 L (136-145) mEq/L Potassium 3.9 (3.5-5.1) mEq/L Chloride 97 L (98-107) mEq/L Carbon Dioxide 30 H (23-29) mEq/L BUN 6 L (8-23) mg/dL Creatinine 0.57 L (0.60-1.20) mg/dL Est GFR ( Amer) > 60 (> 60) Est GFR (Non-Af Amer) > 60 (> 60) BUN/Creatinine Ratio 11 (6-26) Glucose 116 H (70-105) mg/dL Calculated Osmolality 277 L (280-300) Calcium 9.1 (8.6-10.3) mg/dL Magnesium 2.0 (1.6-2.6) mg/dL Lipase 7 L (11-82) Units/L Urine Color (Yellow) Urine Clarity (Clear) Urine pH (5.0-8.0) pH Units Ur Specific [place] (1.010-1.025) Urine Protein (Neg-Trace) mg/dL Urine Glucose (UA) (Normal) mg/dL Urine Ketones (Negative) mg/dL Urine Blood (Negative) Urine Nitrite (Negative) Urine Bilirubin (Negative) Urine Urobilinogen (Normal) mg/dL Ur Leukocyte Esterase (Negative) Urine Microscopic RBC (0-3) per hpf Urine Microscopic WBC (0-3) per hpf Ur Squamous Epith Cells (None-Few) per lpf Urine Bacteria (None-Few) per hpf Hyaline Casts (None-Few) per lpf Ur Culture Indicated? (NO) Salicylates < 2.5 L (15.0-30.0) mg/dL Urine Opiates Screen (Vnutod=547) ng/mL Acetaminophen < 10 L (10-20) mcg/mL Ur Barbiturates Screen (Opvpzu=464) ng/mL Ur Phencyclidine Scrn (Cutoff=25) ng/mL Ur Amphetamines Screen (Ckxopk=8049) ng/mL U Benzodiazepines Scrn (Uniuwf=822) ng/mL Urine Cocaine Screen (Cutoff= 300) ng/mL U Marijuana (THC) Screen (Cutoff = 50) ng/mL Ur Drug Screen Interp Ethyl Alcohol < 10 (Less than 10) mg/dL - Radiology Data Radiology results reviewed: Yes I reviewed the patient's radiology results. - EKG Data EKG attestation: Yes I reviewed and interpreted this EKG. EKG results narrative: EKG done at 0 536 review myself and the attending shows sinus rhythm rate of 74 , [place] interval 206, QRS 84, QTc 460. No acute ST changes no acute T-wave changes no other signs of ischemia. No signs of heart blocks, hypertrophy, heart strain. No WPW/Brugada/HOCM. No old EKG compare with TPA Checklist - LKW: 3-4.5 hrs Add. Warnings/Precautions Patient/family understanding: The patient/family members have been counseled and understood the risk, benefit , and alternatives of treatment.
[2018-08-07 05:25] LABS: Basophils % 0.2 %; Eosinophils # 0.1 K/mcL (0.0-0.6); Hematocrit 36.6 % (35.3-44.9); Hemoglobin 12.1 g/dL (11.5-15.4); Immature Granulocytes % 1.4 % (0-4); Lymphocytes # 1.8 K/mcL (0.6-4.6); Lymphocytes % 27.7 %; Mean Corpuscular HGB Conc 33.1 g/dL (31.6-35.5); Mean Corpuscular Hemoglobin 30.9 pg (28.0-33.3); Mean Corpuscular Volume 93.6 fL (83.0-100.0); Mean Platelet Volume 8.5 fL (9.4-12.4); Monocytes # 0.5 K/mcL (0.0-1.3); Monocytes % 8.2 %; Neutrophils # 3.9 K/mcL (1.6-8.9); Platelet Count 184 K/mcL (140-400); Red Blood Count 3.91 M/mcL (3.82-4.97); Red Cell Distribution Width 14.6 % (11.5-14.5); Segmented Neutrophils % 60.5 %
[2018-08-07 05:39] LABS: Acetaminophen < 10 mcg/mL (10-20); Ethanol < 10 mg/dL (Less than 10); Salicylate < 2.5 mg/dL (15.0-30.0)
[2018-08-07 05:40] LABS: BUN/Creatinine Ratio 11 (6-26); Blood Urea Nitrogen 6 mg/dL (8-23); Calcium 9.1 mg/dL (8.6-10.3); Carbon Dioxide 30 mEq/L (23-29); Chloride 97 mEq/L (98-107); Glucose 116 mg/dL (70-105); Lipase 7 Units/L (11-82); Osmolality,Calculated 277 (280-300); Potassium 3.9 mEq/L (3.5-5.1); Sodium 134 mEq/L (136-145); eGFR For Non-African Americans > 60 (> 60)
--- NOTE | 2018-08-07 06:29 | Emergency Department Note ---
Disposition Clinical Impression: Dementia Qualifiers: Dementia type: unspecified type Dementia behavioral disturbance: without behavioral disturbance Qualified Code(s): F03.90 - Unspecified dementia without behavioral disturbance Altered mental status Qualifiers: Altered mental status type: unspecified Qualified Code(s): R41.82 - Altered mental status, unspecified Disposition: Admitted As Inpatient Condition: Good Referrals: Chuy Lloyd MD [Primary Care Provider] - Vladimir Burrows MD [Family Provider] - Forms: ED Satisfaction Letter General Adult HPI - General Chief complaint: ED Weakness Stated complaint: altered Time Seen by Provider: 08/07/18 04:43 Source: EMS Limitations: no limitations - History of Present Illness Pain Scale: 0 Past Medical History - Past Medical History Medical history: Reports: dementia Psychiatric history: Reports: anxiety - Social History Smoking Status: Current every day smoker Smokeless Tobacco Status: No Alcohol use: Reports: none Drug use: Reports: none Physical Exam - General Limitations: no limitations General appearance: alert, in no apparent distress Course Vital Signs Temperature 99.1 F 08/07/18 05:36 Pulse Rate 80 08/07/18 05:36 Respiratory Rate 28 08/07/18 05:36 Blood Pressure 167/75 08/07/18 05:36 O2 Sat by Pulse Oximetry 96 08/07/18 05:36 Temperature 99.1 F 08/07/18 05:36 Pulse Rate 80 08/07/18 05:36 Respiratory Rate 28 08/07/18 05:36 Blood Pressure 167/75 08/07/18 05:36 O2 Sat by Pulse Oximetry 96 08/07/18 05:36 Oxygen Delivery Oxygen Delivery Room Air Medical Decision Making - [facility] Narrative Medical decision making narrative: I examined this patient and my medical decision-making was reviewed with the Resident Physician. I agree with the documented findings, disposition and treatment plan as described except to the extent set forth below. Findings consistent with worsening dementia. Urinalysis does not suggest infection. Head CT shows chronic changes. We will admit for medical clearance for subsequent placement into [facility] which is requested by the family. - Lab Data Result diagrams: 08/07/18 05:00 08/07/18 05:00 Lab Results 08/07/18 08/07/18 08/07/18 Range/Units 04:54 04:54 05:00 WBC 6.5 (4.3-11.1) K/mcL RBC 3.91 (3.82-4.97) M/mcL Hgb 12.1 (11.5-15.4) g/dL Hct 36.6 (35.3-44.9) % MCV 93.6 (83.0-100.0) fL MCH 30.9 (28.0-33.3) pg MCHC 33.1 (31.6-35.5) g/dL RDW 14.6 H (11.5-14.5) % Plt Count 184 (140-400) K/mcL MPV 8.5 L (9.4-12.4) fL Immature Gran % 1.4 (0-4) % Seg Neutrophils % 60.5 % Lymphocytes % 27.7 % Monocytes % 8.2 % Eosinophils % 2.0 % Basophils % 0.2 % Neutrophils # 3.9 (1.6-8.9) K/mcL Lymphocytes # 1.8 (0.6-4.6) K/mcL Monocytes # 0.5 (0.0-1.3) K/mcL Eosinophils # 0.1 (0.0-0.6) K/mcL Basophils # 0.0 (0.0-0.2) K/mcL Sodium (136-145) mEq/L Potassium (3.5-5.1) mEq/L Chloride (98-107) mEq/L Carbon Dioxide (23-29) mEq/L BUN (8-23) mg/dL Creatinine (0.60-1.20) mg/dL Est GFR ( Amer) (> 60) Est GFR (Non-Af Amer) (> 60) BUN/Creatinine Ratio (6-26) Glucose (70-105) mg/dL Calculated Osmolality (280-300) Calcium (8.6-10.3) mg/dL Magnesium (1.6-2.6) mg/dL Lipase (11-82) Units/L Urine Color Yellow (Yellow) Urine Clarity Clear (Clear) Urine pH 8.0 (5.0-8.0) pH Units Ur Specific [place] 1.015 (1.010-1.025) Urine Protein Trace (Neg-Trace) mg/dL Urine Glucose (UA) Normal (Normal) mg/dL Urine Ketones Negative (Negative) mg/dL Urine Blood Moderate H (Negative) Urine Nitrite Negative (Negative) Urine Bilirubin Negative (Negative) Urine Urobilinogen Normal (Normal) mg/dL Ur Leukocyte Esterase Small H (Negative) Urine Microscopic RBC 15-30 H (0-3) per hpf Urine Microscopic WBC 0-3 (0-3) per hpf Ur Squamous Epith Cells Many H (None-Few) per lpf Urine Bacteria Few (None-Few) per hpf Hyaline Casts None Seen (None-Few) per lpf Ur Culture Indicated? NO. A (NO) Salicylates (15.0-30.0) mg/dL Urine Opiates Screen Negative (Ekgtzm=949) ng/mL Acetaminophen (10-20) mcg/mL Ur Barbiturates Screen Negative (Azmxns=194) ng/mL Ur Phencyclidine Scrn Negative (Cutoff=25) ng/mL Ur Amphetamines Screen Negative (Yzmelg=7528) ng/mL U Benzodiazepines Scrn Negative (Reimaq=552) ng/mL Urine Cocaine Screen Negative (Cutoff= 300) ng/mL U Marijuana (THC) Screen Negative (Cutoff = 50) ng/mL Ur Drug Screen Interp See Below Ethyl Alcohol (Less than 10) mg/dL 08/07/18 08/07/18 Range/Units 05:00 05:00 WBC (4.3-11.1) K/mcL RBC (3.82-4.97) M/mcL Hgb (11.5-15.4) g/dL Hct (35.3-44.9) % MCV (83.0-100.0) fL MCH (28.0-33.3) pg MCHC (31.6-35.5) g/dL RDW (11.5-14.5) % Plt Count (140-400) K/mcL MPV (9.4-12.4) fL Immature Gran % (0-4) % Seg Neutrophils % % Lymphocytes % % Monocytes % % Eosinophils % % Basophils % % Neutrophils # (1.6-8.9) K/mcL Lymphocytes # (0.6-4.6) K/mcL Monocytes # (0.0-1.3) K/mcL Eosinophils # (0.0-0.6) K/mcL Basophils # (0.0-0.2) K/mcL Sodium 134 L (136-145) mEq/L Potassium 3.9 (3.5-5.1) mEq/L Chloride 97 L (98-107) mEq/L Carbon Dioxide 30 H (23-29) mEq/L BUN 6 L (8-23) mg/dL Creatinine 0.57 L (0.60-1.20) mg/dL Est GFR ( Amer) > 60 (> 60) Est GFR (Non-Af Amer) > 60 (> 60) BUN/Creatinine Ratio 11 (6-26) Glucose 116 H (70-105) mg/dL Calculated Osmolality 277 L (280-300) Calcium 9.1 (8.6-10.3) mg/dL Magnesium 2.0 (1.6-2.6) mg/dL Lipase 7 L (11-82) Units/L Urine Color (Yellow) Urine Clarity (Clear) Urine pH (5.0-8.0) pH Units Ur Specific [place] (1.010-1.025) Urine Protein (Neg-Trace) mg/dL Urine Glucose (UA) (Normal) mg/dL Urine Ketones (Negative) mg/dL Urine Blood (Negative) Urine Nitrite (Negative) Urine Bilirubin (Negative) Urine Urobilinogen (Normal) mg/dL Ur Leukocyte Esterase (Negative) Urine Microscopic RBC (0-3) per hpf Urine Microscopic WBC (0-3) per hpf Ur Squamous Epith Cells (None-Few) per lpf Urine Bacteria (None-Few) per hpf Hyaline Casts (None-Few) per lpf Ur Culture Indicated? (NO) Salicylates < 2.5 L (15.0-30.0) mg/dL Urine Opiates Screen (Uuwnum=367) ng/mL Acetaminophen < 10 L (10-20) mcg/mL Ur Barbiturates Screen (Swpxaa=343) ng/mL Ur Phencyclidine Scrn (Cutoff=25) ng/mL Ur Amphetamines Screen (Vxykdw=5349) ng/mL U Benzodiazepines Scrn (Eovkid=017) ng/mL Urine Cocaine Screen (Cutoff= 300) ng/mL U Marijuana (THC) Screen (Cutoff = 50) ng/mL Ur Drug Screen Interp Ethyl Alcohol < 10 (Less than 10) mg/dL
[2018-08-07] MEDS ORDERED: Naloxone 0.4 MG/ML INJ IVP PRN (08:54)
--- NOTE | 2018-08-07 09:39 | Internal Med History&Physical ---
Date of Encounter: 08/07/18 Time of Encounter: 09:37 Internal Medicine - H&P: HPI Chief complaint: Increasingly weak at home Admitted From: Emergency Dept Plans for Post Hospital Care: Transfer Residential Facility History of present illness: Ms. Kline is a 78 year old female patient with a history of dementia who was brought to the ER her family members for worsening symptoms of dementia at home along with increasing weakness to the point where she is full assist at home. She was reportedly altered in the ER but appears to be back to her baseline during my interview. She denies any complaints at this time and reports that she feels fine. She is not oriented. History has been obtained through ED records and per discussion with the patient's nurse who spoke to the family. Patient denies any weakness in her upper extremities or legs. She is currently sitting up in chair and eating breakfast without any difficulty. Denies any pain anywhere. No shortness of breath. No cough reported. According to the family, patient has also been having symptoms of delirium at home with intermittent laughter and screaming in the middle of night. They reported that they are unable to care for her at home given how much help she is requiring. Past Med Surg Social Fam HX - Past Medical History Medical history: dementia, hyperlipidemia, hypertension Additional medical history: encephalitis, Alzheimers, Uterine Cancer. Psychiatric history: anxiety - Past Surgical History Surgical History: hysterectomy - Social History Smoking Status: Current every day smoker Packs per day: <1 Smokeless Tobacco Status: No Alcohol use: none Drug use: none - Family History Sister Living Status: Hx Family Respiratory Disorders: Yes Internal Medicine - H&P: Meds Atorvastatin [Lipitor] 40 mg PO HS 02/07/17 [History] Citalopram Hydrobromide [Celexa] 40 mg PO DAILY 02/07/17 [History] Donepezil HCl [Aricept] 5 mg PO HS 02/07/17 [History] Losartan Potassium [Cozaar] 50 mg PO DAILY 02/07/17 [History] ALPRAZolam [Xanax 0.25 MG Tablet] 0.25 mg PO BID PRN 08/28/17 [History] Multivitamin [One Daily Essential] 1 tab PO DAILY 04/23/18 [History] 3 Allergy/AdvReac Type Severity Reaction Status Date / Time Histamine H2 Inhibitors Allergy Rash Verified 08/07/18 08:52 All Systems PM: A 10-system review of systems was performed and is negative for pertinent findings except as documented above in the HPI. - Constitutional Constitutional: malaise, weakness - EENT Eyes: no change in vision, no discharge, no pain, no photophobia Ears: no ear discharge, no ear pain, no tinnitus Nose, mouth and throat: no dysphagia, no nasal discharge, no neck pain, no sore throat - Cardiovascular Cardiovascular ROS IM: no chest pain, no diaphoresis, no dyspnea, no lightheadedness, no palpitations, no syncope - Respiratory Respiratory: no cough, no dyspnea, no wheezing, no excessive phlegm production - Gastrointestinal Gastrointestinal: no abdominal pain, no diarrhea, no hematemesis, no hematochezia, no melena, no nausea, no vomiting - Genitourinary Genitourinary: no change in urinary stream, no dysuria, no flank pain, no hematuria - Musculoskeletal Musculoskeletal ROS IM: no numbness, no tingling - Integumentary Integumentary IM: no rash, no unusual bruising - Neurological Neurological ROS: behavioral changes, no confusion, no convulsions, no focal weakness, no numbness, no tingling, no tremor(s) - Constitutional Vitals: Temp Pulse Resp BP Pulse Ox 98.3 F 84 15 177/78 94 08/07/18 08:52 08/07/18 08:52 08/07/18 08:52 08/07/18 08:52 08/07/18 08:52 General appearance: Present: cooperative, pleasant Exam: Patient is alert but disoriented 3. She states that she is at [place]. - Neck Neck exam general surgery: Present: supple, trachea midline. Absent: lymphadenopathy - Respiratory Respiratory exam: Present: CTAB. Absent: accessory muscle use, rales, rhonchi, wheezes - Cardiovascular Cardiovascular exam: Present: RRR, +S1, +S2. Absent: diastolic murmur, gallop, rubs, systolic murmur - GI/Abdominal GI/Abdominal exam: Present: normal bowel sounds, soft, no peritoneal signs. Absent: distended, tenderness - Extremities Exam Extremities exam: Present: warm, radial pulses palpable and symmetrical. Absent : calf tenderness, cyanotic, pedal edema - Neurological Exam Neurological exam: Present: alert, CN II-XII intact, no focal deficits. Absent : oriented X3, facial droop, speech deficit Additional comments: No focal weakness elicited. - Skin Skin exam: Present: dry, intact Internal Med - H&P Results - Labs CBC & Chem 7: 08/07/18 05:00 08/07/18 05:00 - Impressions Impressions Chest X-Ray 08/07/18 04:43 IMPRESSION: No acute disease. D/ / Andre Wilson MD / Andre Wilson MD Interpreting Provider: Andre Wilson MD Head CT 08/07/18 05:42 IMPRESSION: Severe small vessel chronic ischemic changes without acute hemorrhage or definite evidence for acute ischemia. Small areas of acute ischemia cannot be excluded. D/ / Andre Wilson MD / Andre Wilson MD Interpreting Provider: Andre Wilson MD - Assessment and plan (1) Altered mental status Current Visit: Yes Status: Acute Assessment and plan: Patient currently disoriented but appears to be improving towards her baseline. This could just be worsening of her underlying dementia. No other acute illness has been identified so far. Urine does not show any signs of infection. Chest x-ray does not show any pneumonia. CT scan of the head shows severe chronic small vessel ischemic disease. Patient currently does not have any focal weakness necessitating further workup at this time. Consider MRI if she develops any focal weakness. Qualifiers: Altered mental status type: disorientation Qualified Code(s): R41.0 - Disorientation, unspecified (2) Dementia Current Visit: Yes Status: Chronic Assessment and plan: Patient with history of underlying dementia. Likely progressive. Could be vascular dementia based on CT head findings. Treat supportively. Patient may need placement to dementia unit. electrical line worker consult. Qualifiers: Dementia type: vascular dementia Dementia behavioral disturbance: with behavioral disturbance Qualified Code(s): F01.51 - Vascular dementia with behavioral disturbance (3) DVT prophylaxis Current Visit: Yes Status: Acute Assessment and plan: With SCDs and subcutaneous heparin (4) Failure to thrive Current Visit: Yes Status: Acute Assessment and plan: patient failing to thrive at home and currently requiring full assistance per family. Will consult foster care social worker. Qualifiers: Failure to thrive age range: in adult Qualified Code(s): R62.7 - Adult failure to thrive - Time Spent With Patient Total time spent is greater than 50% in coordination of care (as documented) at patient's floor/unit and/or counseling patient:
[2018-08-07] MEDS ORDERED: Ringers Solution, Lactated 1,000 ML IVC SCH (09:45)
[2018-08-07] MEDS: traZODone 50 MG TABLET PO PRN (20:28)
[2018-08-07] MEDS: ALPRAZolam 0.5 MG TABLET PO PRN (20:28)
[2018-08-08] MEDS: Multivit/Ca/Min/Fe/FA 1 TAB TABLET PO SCH (08:38)
[2018-08-08] MEDS: 0.9 % Sodium Chloride 1,000 ML IVC SCH ×2 (08:39→21:20)
--- NOTE | 2018-08-08 11:09 | Internal Med Progress Note ---
Hospitalist Progress Note - Encounter Date of Encounter: 08/08/18 Time of Encounter: 11:07 - Subjective Interval History: Patient seen and examined in the room, she is allowed to herself only, she does not follow comments, unable to have meaningful talk. She is also constantly yelling. She moves all the extremities. - Exam Vitals: Temp Pulse Resp BP Pulse Ox 98.4 F 79 17 156/75 91 08/08/18 06:40 08/08/18 06:40 08/08/18 06:40 08/08/18 08:37 08/08/18 06:40 Exam: PHYSICAL EXAMINATION: GENERAL APPEARANCE: The patient is alert, oriented and in no acute distress. HEENT: Head is normocephalic. The sinuses are nontender. Pupils are equal and reactive. The nares are patent. Oropharynx clear without lesions. NECK: Supple without lymphadenopathy. HEART: Regular rate and rhythm. LUNGS: No crackles or wheezes are heard. ABDOMEN: Soft, nontender, nondistended with good bowel sounds heard. Inguinal area is normal. EXTREMITIES: Without cyanosis, clubbing or edema. NEUROLOGICAL: Gross nonfocal. SKIN: Warm and dry without any rash. - Assessment and Plan (1) Altered mental status Current Visit: Yes Status: Acute Assessment and Plan: Patient currently disoriented but appears to be improving towards her baseline. This could just be worsening of her underlying dementia. No other acute illness has been identified so far. Urine does not show any signs of infection. Chest x-ray does not show any pneumonia. CT scan of the head shows severe chronic small vessel ischemic disease. Labs showed normal TSH and vitamin B12, low vitamin D. Vitamin D and calcium supplement ordered. psych consult ordered. (2) Failure to thrive Current Visit: Yes Status: Acute Assessment and Plan: patient failing to thrive at home and currently requiring full assistance per family. Will consult social science manager. (3) Dementia Current Visit: No Status: Chronic Assessment and Plan: Patient with history of underlying dementia. Likely progressive. Could be vascular dementia based on CT head findings. Treat supportively. Patient may need placement to dementia unit. blade worker consult. (4) DVT prophylaxis Current Visit: Yes Status: Acute Assessment and Plan: With SCDs and subcutaneous heparin - Time Spent with Patient Total time spent is greater than 50% in coordination of care (as documented) at patient's floor/unit and/or counseling patient: Greater than 35 minutes Plan of Care Discussed with: patient Internal Medicine: Result - Labs CBC & Chem 7: 08/07/18 05:00 08/07/18 05:00 Consult Discharge Plan - Plan Referrals: Chuy Lloyd MD [Primary Care Provider] - Vladimir Burrows MD [Family Provider] - (1) Altered mental status Qualifiers: Altered mental status type: disorientation Qualified Code(s): R41.0 - Disorientation, unspecified (2) Failure to thrive Qualifiers: Failure to thrive age range: in adult Qualified Code(s): R62.7 - Adult failure to thrive (3) Dementia Qualifiers: Dementia type: vascular dementia Dementia behavioral disturbance: with behavioral disturbance Qualified Code(s): F01.51 - Vascular dementia with behavioral disturbance
--- NOTE | 2018-08-08 14:38 | Consult Note ---
Date of Encounter: 08/08/18 Time of Encounter: 14:10 Assessment & Recommendation (1) Dementia Current visit: No Status: Chronic Qualifiers: Dementia type: unspecified type Dementia behavioral disturbance: with behavioral disturbance Qualified Code(s): F03.91 - Unspecified dementia with behavioral disturbance History of Present Illness Patient: new to practice Requesting Physician: April Bergman MD Reason for consult: confusion History of present illness: Ms. Kline is a 78 year old female was consulted , no collateral , chart reviewed. was bought in with Altered Mental Status at present unable to get any information from patient she was only able to give her , she was having rambling speech , looked angry and flapping her hands, remained confused and irritable. she as per chart has dementia , at present unable to exam patient , she does not appear to be able to take care of herself . 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 she is on celexa, trazodone and alprazolam , and aricept .she probably has been treated for depression , need to know if was seeing psychiatrist or PCP. A/P h/o Dementia as per chart h/o depression at present no treatment. Thank you for consult. CC: April Bergman MD Past Med Surg Social Fam HX - Past Medical History Medical history: dementia, hyperlipidemia, hypertension - Past Psychiatric History Family psychiatric history: Unknown Family History of Suicide: Unknown - Past Surgical History Surgical History: hysterectomy - Social History Smoking Status: Current every day smoker Smokeless Tobacco Status: No Alcohol use: none Drug use: none - Family History Sister Living Status: Hx Family Respiratory Disorders: Yes Medications & Allergies Citalopram Hydrobromide [Celexa] 40 mg PO DAILY 02/07/17 [History] Donepezil HCl [Aricept] 5 mg PO HS 02/07/17 [History] Losartan Potassium [Cozaar] 50 mg PO DAILY 02/07/17 [History] Multivitamin [One Daily Essential] 1 tab PO DAILY 04/23/18 [History] ALPRAZolam [Xanax 0.5 MG Tablet] 0.25 - 0.5 mg PO BID PRN 08/07/18 [History] traZODone [TraZODone] 50 - 100 mg PO HS PRN 08/07/18 [History] 3 Allergy/AdvReac Type Severity Reaction Status Date / Time Histamine H2 Inhibitors Allergy Rash Verified 08/07/18 08:52 Psychiatry Exam - Constitutional Vitals: Temp Pulse Resp BP Pulse Ox 98.8 F 86 17 161/64 91 08/08/18 12:03 08/08/18 12:03 08/08/18 12:03 08/08/18 12:03 08/08/18 12:03 General appearance: unkempt (not oriented, unable to do to mental status examination as very confused.) Results - Labs Labs: Laboratory Last Values WBC 6.5 K/mcL (4.3-11.1) 08/07/18 05:00 RBC 3.91 M/mcL (3.82-4.97) 08/07/18 05:00 Hgb 12.1 g/dL (11.5-15.4) 08/07/18 05:00 Hct 36.6 % (35.3-44.9) 08/07/18 05:00 MCV 93.6 fL (83.0-100.0) 08/07/18 05:00 MCH 30.9 pg (28.0-33.3) 08/07/18 05:00 MCHC 33.1 g/dL (31.6-35.5) 08/07/18 05:00 RDW 14.6 % (11.5-14.5) H 08/07/18 05:00 Plt Count 184 K/mcL (140-400) 08/07/18 05:00 MPV 8.5 fL (9.4-12.4) L 08/07/18 05:00 Immature Gran % 1.4 % (0-4) 08/07/18 05:00 Seg Neutrophils % 60.5 % 08/07/18 05:00 Lymphocytes % 27.7 % 08/07/18 05:00 Monocytes % 8.2 % 08/07/18 05:00 Eosinophils % 2.0 % 08/07/18 05:00 Basophils % 0.2 % 08/07/18 05:00 Neutrophils # 3.9 K/mcL (1.6-8.9) 08/07/18 05:00 Lymphocytes # 1.8 K/mcL (0.6-4.6) 08/07/18 05:00 Monocytes # 0.5 K/mcL (0.0-1.3) 08/07/18 05:00 Eosinophils # 0.1 K/mcL (0.0-0.6) 08/07/18 05:00 Basophils # 0.0 K/mcL (0.0-0.2) 08/07/18 05:00 Sodium 134 mEq/L (136-145) L 08/07/18 05:00 Potassium 3.9 mEq/L (3.5-5.1) 08/07/18 05:00 Chloride 97 mEq/L (98-107) L 08/07/18 05:00 Carbon Dioxide 30 mEq/L (23-29) H 08/07/18 05:00 BUN 6 mg/dL (8-23) L 08/07/18 05:00 Creatinine 0.57 mg/dL (0.60-1.20) L 08/07/18 05:00 Est GFR ( Amer) > 60 (> 60) 08/07/18 05:00 Est GFR (Non-Af Amer) > 60 (> 60) 08/07/18 05:00 BUN/Creatinine Ratio 11 (6-26) 08/07/18 05:00 Glucose 116 mg/dL (70-105) H 08/07/18 05:00 Calculated Osmolality 277 (280-300) L 08/07/18 05:00 Calcium 9.1 mg/dL (8.6-10.3) 08/07/18 05:00 Magnesium 2.0 mg/dL (1.6-2.6) 08/07/18 05:00 Lipase 7 Units/L (11-82) L 08/07/18 05:00 Vitamin B12 350 pg/mL (250-1100) 08/08/18 09:29 25-OH Vitamin D Total 12 ng/mL (30-80) L 08/08/18 09:29 TSH 1.978 mcIU/mL (0.340-5.600) 08/08/18 09:29 Urine Color Yellow (Yellow) 08/07/18 04:54 Urine Clarity Clear (Clear) 08/07/18 04:54 Urine pH 8.0 pH Units (5.0-8.0) 08/07/18 04:54 Ur Specific [place] 1.015 (1.010-1.025) 08/07/18 04:54 Urine Protein Trace mg/dL (Neg-Trace) 08/07/18 04:54 Urine Glucose (UA) Normal mg/dL (Normal) 08/07/18 04:54 Urine Ketones Negative mg/dL (Negative) 08/07/18 04:54 Urine Blood Moderate (Negative) H 08/07/18 04:54 Urine Nitrite Negative (Negative) 08/07/18 04:54 Urine Bilirubin Negative (Negative) 08/07/18 04:54 Urine Urobilinogen Normal mg/dL (Normal) 08/07/18 04:54 Ur Leukocyte Esterase Small (Negative) H 08/07/18 04:54 Urine Microscopic RBC 15-30 per hpf (0-3) H 08/07/18 04:54 Urine Microscopic WBC 0-3 per hpf (0-3) 08/07/18 04:54 Ur Squamous Epith Cells Many per lpf (None-Few) H 08/07/18 04:54 Urine Bacteria Few per hpf (None-Few) 08/07/18 04:54 Hyaline Casts None Seen per lpf (None-Few) 08/07/18 04:54 Ur Culture Indicated? NO. (NO) A 08/07/18 04:54 Salicylates < 2.5 mg/dL (15.0-30.0) L 08/07/18 05:00 Urine Opiates Screen Negative ng/mL (Bntdtr=435) 08/07/18 04:54 Acetaminophen < 10 mcg/mL (10-20) L 08/07/18 05:00 Ur Barbiturates Screen Negative ng/mL (Ngyaar=463) 08/07/18 04:54 Ur Phencyclidine Scrn Negative ng/mL (Cutoff=25) 08/07/18 04:54 Ur Amphetamines Screen Negative ng/mL (Ftvubk=4916) 08/07/18 04:54 U Benzodiazepines Scrn Negative ng/mL (Vsaaop=599) 08/07/18 04:54 Urine Cocaine Screen Negative ng/mL (Cutoff= 300) 08/07/18 04:54 U Marijuana (THC) Screen Negative ng/mL (Cutoff = 50) 08/07/18 04:54 Ur Drug Screen Interp See Below 08/07/18 04:54 Ethyl Alcohol < 10 mg/dL (Less than 10) 08/07/18 05:00 Consult Discharge Plan - Plan Referrals: Chuy Lloyd MD [Primary Care Provider] - Vladimir Burrows MD [Family Provider] -
[2018-08-09 06:02] LABS: BUN/Creatinine Ratio 20 (6-26); Blood Urea Nitrogen 10 mg/dL (8-23); Calcium 9.2 mg/dL (8.6-10.3); Carbon Dioxide 21 mEq/L (23-29); Chloride 100 mEq/L (98-107); Glucose 117 mg/dL (70-105); Osmolality,Calculated 274 (280-300); Potassium 4.5 mEq/L (3.5-5.1); Sodium 132 mEq/L (136-145); eGFR For Non-African Americans > 60 (> 60)
[2018-08-09] MEDS: ALPRAZolam 0.5 MG TABLET PO PRN ×2 (08:35→20:43)
[2018-08-09] MEDS: amLODIPine 5 MG TABLET PO SCH (08:36)
[2018-08-09] MEDS: Multivit/Ca/Min/Fe/FA 1 TAB TABLET PO SCH (08:40)
[2018-08-09] MEDS: Cholecalciferol (D-3) 1,000 UNIT TABLET PO SCH (08:41)
--- NOTE | 2018-08-09 09:57 | Discharge Summary ---
- NOTES TO OUTPATIENT PROVIDER Notes to Outpatient Provider: f/u with PCP within 2 weeks. Date of Encounter: 08/09/18 Time of Encounter: 09:53 - Discharge Diagnosis (1) Altered mental status Priority: Primary Status: Acute Qualifiers: Altered mental status type: disorientation Qualified Code(s): R41.0 - Disorientation, unspecified (2) Failure to thrive Priority: Primary Status: Acute Qualifiers: Failure to thrive age range: in adult Qualified Code(s): R62.7 - Adult failure to thrive (3) Dementia Priority: Secondary Status: Chronic Qualifiers: Dementia type: vascular dementia Dementia behavioral disturbance: with behavioral disturbance Qualified Code(s): F01.51 - Vascular dementia with behavioral disturbance (4) DVT prophylaxis Priority: Primary Status: Acute Hospital course: Ms. Kline is a 78 year old female patient with a history of dementia who was brought to the ER by her family members for worsening symptoms of dementia at home along with increasing weakness to the point where she is full assist at home. She was reportedly altered in the ER but appears to be back to her baseline during my interview. She denies any complaints at this time and reports that she feels fine. History has been obtained through ED records and per discussion with the patient's nurse who spoke to the family. Patient denies any weakness in her upper extremities or legs. According to the family, patient has also been having symptoms of delirium at home with intermittent laughter and screaming in the middle of night. They reported that they are unable to care for her at home given how much help she is requiring. At the ED, patient vital signs were stable, labs were unremarkable except for low blood vitamin D level. Psychiatry was consulted, the chest tube that patient does not have any acute psychiatry issue besides severe dementia. CT head showed no acute Abnormalities besides Chronic Microvascular Ischemia Changes. PT/OT Were Consulted, recommended ECF Placement. However, Due To the Insurance Issue, Patient Only is Qualified for Home Health. Due to the severe dementia, patient requires the head of the bed to be elevated more than 30 degrees most of the time due to risk of aspiration. Therefore, a hospital bed was ordered. Patient has a mobility limitation that significantly impairs her ability to participate in 1 or more mobility related activities of daily living. The mobility limitation cannot be sufficiently resolved by the use of a properly fitted cane or walker. Use of manual wheelchair will significantly improve the patient's ability to participate in activities of daily living and patient will use it on a regular basis at home. Patient has not expressed an unwillingness to use a manual wheelchair . patient has sufficient upper body function and other physical and mental capability needed to safely self-propel the wheelchair during a typical day and the patient has a caregiver to provide assistance with the wheelchair. Her blood pressure was uncontrolled, amlodipine was added, vitamin D and calcium were prescribed due to vitamin D deficiency. She will be discharged home today with home health care, she was instructed to continue follow-up with PCP as needed. Discharge discussed with: patient, family Time spent discussing smoking cessation with patient: more than 10 minutes - Time Spent with Patient Total time spent providing and/or coordinating discharge services: Greater than 30 minutes - Discharge Medications Prescriptions: amLODIPine [Norvasc] 5 mg PO DAILY #30 tablet Calcium Carbonate [Tums] 1,000 mg PO QID #90 tab.chew Cholecalciferol (D-3) [Vitamin D] 1,000 unit PO DAILY #30 tablet Home Medications: Citalopram Hydrobromide [Celexa] 40 mg PO DAILY 02/07/17 [History] Donepezil HCl [Aricept] 5 mg PO HS 02/07/17 [History] Losartan Potassium [Cozaar] 50 mg PO DAILY 02/07/17 [History] Multivitamin [One Daily Essential] 1 tab PO DAILY 04/23/18 [History] ALPRAZolam [Xanax 0.5 MG Tablet] 0.25 - 0.5 mg PO BID PRN 08/07/18 [History] traZODone [TraZODone] 50 - 100 mg PO HS PRN 08/07/18 [History] Atorvastatin [Lipitor] 40 mg PO HS tablet 08/09/18 [Rx] Calcium Carbonate [Tums] 1,000 mg PO QID #90 tab.chew 08/09/18 [Rx] Cholecalciferol (D-3) [Vitamin D] 1,000 unit PO DAILY #30 tablet 08/09/18 [Rx] amLODIPine [Norvasc] 5 mg PO DAILY #30 tablet 08/09/18 [Rx] Allergies/Adverse Reactions: 3 Allergy/AdvReac Type Severity Reaction Status Date / Time Histamine H2 Inhibitors Allergy Rash Verified 08/07/18 08:52 Date of admission: 08/07/18 07:54 Primary care physician: Chuy Lloyd MD Consults: 08/07/18 09:04 Consult to Nurses Educator [CONS] Routine Reason for SW Consult: Daughters cannot take care of pt at home. Wanting SNF placement. [facility] is first choice. 08/07/18 09:49 Consult to Physical Therapy [CONS] Routine Comment: Evaluate, develop and implement POC Reason for Consult: Gen weakness Does patient have active BEDREST order?: No Is patient medically & hemodynamically stable?: Yes 08/08/18 11:06 Consult to Psychiatry [CONS] Routine Consulting Provider: Psychiatry Cora Reason consult: Confusion Call Completed: Yes Anticipated date of discharge: 08/09/18 - Constitutional Vitals: Temp Pulse Resp BP Pulse Ox 98.4 F 89 22 190/78 93 08/09/18 07:45 08/09/18 07:45 08/09/18 07:45 08/09/18 07:45 08/09/18 07:45 General appearance: Present: A&O X 0, cooperative, pleasant Exam: PHYSICAL EXAMINATION: GENERAL APPEARANCE: The patient is alert and in no acute distress. HEENT: Head is normocephalic. The sinuses are nontender. Pupils are equal and reactive. The nares are patent. Oropharynx clear without lesions. NECK: Supple without lymphadenopathy. HEART: Regular rate and rhythm. LUNGS: No crackles or wheezes are heard. ABDOMEN: Soft, nontender, nondistended with good bowel sounds heard. Inguinal area is normal. EXTREMITIES: Without cyanosis, clubbing or edema. NEUROLOGICAL: Gross nonfocal. SKIN: Warm and dry without any rash. - Patient Status Disposition: Home Health Service Condition: Good Functional capacity at discharge: wheelchair bound Overall status at discharge: patient is progressing back to baseline - Discharge Instructions Follow Up With: Chuy Lloyd MD [Primary Care Provider] - (Requested a follow up appointment in 7-10 days. ) Vladimir Burrows MD [Family Provider] - - Diet and Activity Activity: resume usual activities as tolerated Diet: advance to your usual diet
--- NOTE | 2018-08-09 10:17 | Physician Discharge Referral ---
Home Health/Hosp Referral Info Transfer to: Home Health Provider in Charge Post Discharge: PCP - Diagnosis (1) Altered mental status Priority: Primary Status: Acute (2) Failure to thrive Priority: Primary Status: Acute (3) Dementia Priority: Secondary Status: Chronic (4) DVT prophylaxis Priority: Primary Status: Acute - Respiratory Orders Smoking Cessation: Smoking cessation has been advised. For more information, call the [place] Tobacco Quit Line at 2-905-IPHU-NOW. - Diet/Nutrition Diet/Nutrition Orders: Regular - Activity Activity Orders: Bedrest - Services Needed Following services are medically necessary services: Nursing, Home Health Aide, Physical Therapy, Occupational Therapy - Transfer Medications Prescriptions: amLODIPine [Norvasc] 5 mg PO DAILY #30 tablet Calcium Carbonate [Tums] 1,000 mg PO QID #90 tab.chew Cholecalciferol (D-3) [Vitamin D] 1,000 unit PO DAILY #30 tablet Home Medications: Citalopram Hydrobromide [Celexa] 40 mg PO DAILY 02/07/17 [History] Donepezil HCl [Aricept] 5 mg PO HS 02/07/17 [History] Losartan Potassium [Cozaar] 50 mg PO DAILY 02/07/17 [History] Multivitamin [One Daily Essential] 1 tab PO DAILY 04/23/18 [History] ALPRAZolam [Xanax 0.5 MG Tablet] 0.25 - 0.5 mg PO BID PRN 08/07/18 [History] traZODone [TraZODone] 50 - 100 mg PO HS PRN 08/07/18 [History] Atorvastatin [Lipitor] 40 mg PO HS tablet 08/09/18 [Rx] Calcium Carbonate [Tums] 1,000 mg PO QID #90 tab.chew 08/09/18 [Rx] Cholecalciferol (D-3) [Vitamin D] 1,000 unit PO DAILY #30 tablet 08/09/18 [Rx] amLODIPine [Norvasc] 5 mg PO DAILY #30 tablet 08/09/18 [Rx] Allergies/Adverse Reactions: 3 Allergy/AdvReac Type Severity Reaction Status Date / Time Histamine H2 Inhibitors Allergy Rash Verified 08/07/18 08:52 Certification: Further, I certify that my clinical findings support that this patient is homebound (i.e. absences from home require considerable and taxing effort and are for medical reasons or yarsani services or infrequently or short duration when for other reasons) because: Homebound Reason: Altered mental status requiring supervision when leaving home Attestation: My signature below is to certify that this patient is under my care and that I, or nurse practitioner, or a physician's residential assistant working with me, has a face-to -face encounter with this patient.
[2018-08-09] MEDS: 0.9 % Sodium Chloride 1,000 ML IVC SCH (11:14)
--- NOTE | 2018-08-09 11:40 | Electrocardiograph Report ---
[place] [id number] Test Date: 2018-08-07 Pat Name: Annie Kline Department: EXAM21 Room: 3B21 Gender: F Rn Teacher: : 1940 Requested By: Nikita Sotelo Order Number: [id number] Reading MD: Diya Devlin Measurements Intervals [place] Rate: 74 P: 78 MT: 206 QRS: -81 QRSD: 84 T: 59 QT: 414 QTc: 460 Interpretive Statements Sinus rhythm Low voltage, precordial leads RSR' in V1 or V2 probably normal variant Left axis deviation Electronically Signed On 08-09-2018 11:39:04 EDT by Diya Devlin
--- NOTE | 2018-08-09 14:15 | Consult Note ---
Date of Encounter: 08/09/18 Time of Encounter: 13:50 Assessment & Recommendation (1) Dementia Current visit: No Status: Chronic Qualifiers: Dementia type: unspecified type Dementia behavioral disturbance: with behavioral disturbance Qualified Code(s): F03.91 - Unspecified dementia with behavioral disturbance (2) Dementia Current visit: No Status: Chronic Qualifiers: Dementia type: vascular dementia Dementia behavioral disturbance: with behavioral disturbance Qualified Code(s): F01.51 - Vascular dementia with behavioral disturbance History of Present Illness Patient: new to practice Requesting Physician: April Bergman MD Reason for consult: follow up History of present illness: Ms. Kline is a 78 year old female , patient seen for follow up , she is still same , unable to get any informatiom. I called her daughter MS. Penelope Syed at [phone] , she gave me information , her mother is living with her for 7 years and she takes care of her , in last 2-3 weeks she has detoriated very fast , has been agitated , combative and aggressive , states she was unable to calm her and therefore was bought to ED. She states her father passed suddenly from blood clot recently in June and its hard for her mother since. states she has dementia and depression but never behavioral problems. she is prescribed her medications from Dr Lloyd her PCP she is on celexa, trazodone, aricept at present unable to do mental status examination secondary to her being agitated and rambling . per daughter she would walk do her stuff but not able to since last few weeks. a/p DEMENTIA WITH BEHAVIOURAL DISTURBANCE/h/o Depression oNCE Medically stable will need placement and stabilization for psychiatric cognitive impairement. CC: April Bergman MD Past Med Surg Social Fam HX - Past Medical History Medical history: dementia, hyperlipidemia, hypertension - Past Psychiatric History Psychiatric history: Reports: anxiety, depression Family psychiatric history: No Family History of Suicide: None - Past Surgical History Surgical History: hysterectomy - Social History Smoking Status: Current every day smoker Smokeless Tobacco Status: No Alcohol use: none Drug use: none - Family History Sister Living Status: Hx Family Respiratory Disorders: Yes Medications & Allergies Citalopram Hydrobromide [Celexa] 40 mg PO DAILY 02/07/17 [History] Donepezil HCl [Aricept] 5 mg PO HS 02/07/17 [History] Losartan Potassium [Cozaar] 50 mg PO DAILY 02/07/17 [History] Multivitamin [One Daily Essential] 1 tab PO DAILY 04/23/18 [History] ALPRAZolam [Xanax 0.5 MG Tablet] 0.25 - 0.5 mg PO BID PRN 08/07/18 [History] traZODone [TraZODone] 50 - 100 mg PO HS PRN 08/07/18 [History] Atorvastatin [Lipitor] 40 mg PO HS tablet 08/09/18 [Rx] Calcium Carbonate [Tums] 1,000 mg PO QID #90 tab.chew 08/09/18 [Rx] Cholecalciferol (D-3) [Vitamin D] 1,000 unit PO DAILY #30 tablet 08/09/18 [Rx] amLODIPine [Norvasc] 5 mg PO DAILY #30 tablet 08/09/18 [Rx] 3 Allergy/AdvReac Type Severity Reaction Status Date / Time Histamine H2 Inhibitors Allergy Rash Verified 08/07/18 08:52 Psychiatry Exam - Constitutional Vitals: Temp Pulse Resp BP Pulse Ox 99.1 F 87 16 132/78 96 08/09/18 11:30 08/09/18 11:30 08/09/18 11:30 08/09/18 11:30 08/09/18 11:30 General appearance: average - Psychiatric Level of alertness: Sedated Behavior: uncooperative Speech pattern: rambling Judgment: Poor Insight: None Results - Labs Labs: Laboratory Last Values WBC 6.5 K/mcL (4.3-11.1) 08/07/18 05:00 RBC 3.91 M/mcL (3.82-4.97) 08/07/18 05:00 Hgb 12.1 g/dL (11.5-15.4) 08/07/18 05:00 Hct 36.6 % (35.3-44.9) 08/07/18 05:00 MCV 93.6 fL (83.0-100.0) 08/07/18 05:00 MCH 30.9 pg (28.0-33.3) 08/07/18 05:00 MCHC 33.1 g/dL (31.6-35.5) 08/07/18 05:00 RDW 14.6 % (11.5-14.5) H 08/07/18 05:00 Plt Count 184 K/mcL (140-400) 08/07/18 05:00 MPV 8.5 fL (9.4-12.4) L 08/07/18 05:00 Immature Gran % 1.4 % (0-4) 08/07/18 05:00 Seg Neutrophils % 60.5 % 08/07/18 05:00 Lymphocytes % 27.7 % 08/07/18 05:00 Monocytes % 8.2 % 08/07/18 05:00 Eosinophils % 2.0 % 08/07/18 05:00 Basophils % 0.2 % 08/07/18 05:00 Neutrophils # 3.9 K/mcL (1.6-8.9) 08/07/18 05:00 Lymphocytes # 1.8 K/mcL (0.6-4.6) 08/07/18 05:00 Monocytes # 0.5 K/mcL (0.0-1.3) 08/07/18 05:00 Eosinophils # 0.1 K/mcL (0.0-0.6) 08/07/18 05:00 Basophils # 0.0 K/mcL (0.0-0.2) 08/07/18 05:00 Sodium 132 mEq/L (136-145) L 08/09/18 05:26 Potassium 4.5 mEq/L (3.5-5.1) 08/09/18 05:26 Chloride 100 mEq/L (98-107) 08/09/18 05:26 Carbon Dioxide 21 mEq/L (23-29) L 08/09/18 05:26 BUN 10 mg/dL (8-23) 08/09/18 05:26 Creatinine 0.51 mg/dL (0.60-1.20) L 08/09/18 05:26 Est GFR ( Amer) > 60 (> 60) 08/09/18 05:26 Est GFR (Non-Af Amer) > 60 (> 60) 08/09/18 05:26 BUN/Creatinine Ratio 20 (6-26) 08/09/18 05:26 Glucose 117 mg/dL (70-105) H 08/09/18 05:26 Calculated Osmolality 274 (280-300) L 08/09/18 05:26 Calcium 9.2 mg/dL (8.6-10.3) 08/09/18 05:26 Magnesium 2.0 mg/dL (1.6-2.6) 08/07/18 05:00 Lipase 7 Units/L (11-82) L 08/07/18 05:00 Vitamin B12 350 pg/mL (250-1100) 08/08/18 09:29 25-OH Vitamin D Total 12 ng/mL (30-80) L 08/08/18 09:29 TSH 1.978 mcIU/mL (0.340-5.600) 08/08/18 09:29 Urine Color Yellow (Yellow) 08/07/18 04:54 Urine Clarity Clear (Clear) 08/07/18 04:54 Urine pH 8.0 pH Units (5.0-8.0) 08/07/18 04:54 Ur Specific [place] 1.015 (1.010-1.025) 08/07/18 04:54 Urine Protein Trace mg/dL (Neg-Trace) 08/07/18 04:54 Urine Glucose (UA) Normal mg/dL (Normal) 08/07/18 04:54 Urine Ketones Negative mg/dL (Negative) 08/07/18 04:54 Urine Blood Moderate (Negative) H 08/07/18 04:54 Urine Nitrite Negative (Negative) 08/07/18 04:54 Urine Bilirubin Negative (Negative) 08/07/18 04:54 Urine Urobilinogen Normal mg/dL (Normal) 08/07/18 04:54 Ur Leukocyte Esterase Small (Negative) H 08/07/18 04:54 Urine Microscopic RBC 15-30 per hpf (0-3) H 08/07/18 04:54 Urine Microscopic WBC 0-3 per hpf (0-3) 08/07/18 04:54 Ur Squamous Epith Cells Many per lpf (None-Few) H 08/07/18 04:54 Urine Bacteria Few per hpf (None-Few) 08/07/18 04:54 Hyaline Casts None Seen per lpf (None-Few) 08/07/18 04:54 Ur Culture Indicated? NO. (NO) A 08/07/18 04:54 Salicylates < 2.5 mg/dL (15.0-30.0) L 08/07/18 05:00 Urine Opiates Screen Negative ng/mL (Mokwdn=278) 08/07/18 04:54 Acetaminophen < 10 mcg/mL (10-20) L 08/07/18 05:00 Ur Barbiturates Screen Negative ng/mL (Vxpjgm=550) 08/07/18 04:54 Ur Phencyclidine Scrn Negative ng/mL (Cutoff=25) 08/07/18 04:54 Ur Amphetamines Screen Negative ng/mL (Rtirll=9969) 08/07/18 04:54 U Benzodiazepines Scrn Negative ng/mL (Zvlxti=272) 08/07/18 04:54 Urine Cocaine Screen Negative ng/mL (Cutoff= 300) 08/07/18 04:54 U Marijuana (THC) Screen Negative ng/mL (Cutoff = 50) 08/07/18 04:54 Ur Drug Screen Interp See Below 08/07/18 04:54 Ethyl Alcohol < 10 mg/dL (Less than 10) 08/07/18 05:00 Consult Discharge Plan - Plan Referrals: Chuy Lloyd MD [Primary Care Provider] - (Requested a follow up appointment in 7-10 days. ) Vladimir Burrows MD [Family Provider] - Prescriptions: amLODIPine [Norvasc] 5 mg PO DAILY #30 tablet Calcium Carbonate [Tums] 1,000 mg PO QID #90 tab.chew Cholecalciferol (D-3) [Vitamin D] 1,000 unit PO DAILY #30 tablet
--- NOTE | 2018-08-09 17:58 | Internal Med Progress Note ---
Hospitalist Progress Note - Encounter Date of Encounter: 08/09/18 Time of Encounter: 17:56 - Subjective Interval History: Patient seen and examined in the room, she is allowed to herself only, she does not follow comments, unable to have meaningful talk. She is also constantly yelling. She moves all the extremities. - Exam Vitals: Temp Pulse Resp BP Pulse Ox 98.4 F 87 14 130/72 92 08/09/18 16:36 08/09/18 16:36 08/09/18 16:36 08/09/18 16:36 08/09/18 16:36 Exam: PHYSICAL EXAMINATION: GENERAL APPEARANCE: The patient is alert and in no acute distress. HEENT: Head is normocephalic. The sinuses are nontender. Pupils are equal and reactive. The nares are patent. Oropharynx clear without lesions. NECK: Supple without lymphadenopathy. HEART: Regular rate and rhythm. LUNGS: No crackles or wheezes are heard. ABDOMEN: Soft, nontender, nondistended with good bowel sounds heard. Inguinal area is normal. EXTREMITIES: Without cyanosis, clubbing or edema. NEUROLOGICAL: Gross nonfocal. SKIN: Warm and dry without any rash. - Assessment and Plan (1) Altered mental status Current Visit: Yes Status: Acute Assessment and Plan: Patient currently disoriented but appears to be improving towards her baseline. This could just be worsening of her underlying dementia. No other acute illness has been identified so far. Urine does not show any signs of infection. Chest x-ray does not show any pneumonia. CT scan of the head shows severe chronic small vessel ischemic disease. Labs showed normal TSH and vitamin B12, low vitamin D. Vitamin D and calcium supplement ordered. psych consult ordered. Psych recommended placement for cognitive impairment. (2) Failure to thrive Current Visit: Yes Status: Acute Assessment and Plan: patient failing to thrive at home and currently requiring full assistance per family. 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 Pt does not qualify ECF/rehab. we will dc pt home with home health. A hospital bed and a wheelchair have been ordered. (3) Dementia Current Visit: No Status: Chronic Assessment and Plan: Patient with history of underlying dementia. Likely progressive. Could be vascular dementia based on CT head findings. Treat supportively. Patient may need placement to dementia unit. 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 (4) DVT prophylaxis Current Visit: Yes Status: Acute Assessment and Plan: With SCDs and subcutaneous heparin - Time Spent with Patient Total time spent is greater than 50% in coordination of care (as documented) at patient's floor/unit and/or counseling patient: Greater than 35 minutes Plan of Care Discussed with: patient Internal Medicine: Result - Labs CBC & Chem 7: 08/07/18 05:00 08/09/18 05:26 Labs: BMP 08/09/18 05:26 Sodium 132 L Potassium 4.5 Chloride 100 Carbon Dioxide 21 L BUN 10 Creatinine 0.51 L Glucose 117 H Calcium 9.2 Consult Discharge Plan - Plan Referrals: Chuy Lloyd MD [Primary Care Provider] - (Requested a follow up appointment in 7-10 days. ) Vladimir Burrows MD [Family Provider] - Prescriptions: amLODIPine [Norvasc] 5 mg PO DAILY #30 tablet Calcium Carbonate [Tums] 1,000 mg PO QID #90 tab.chew Cholecalciferol (D-3) [Vitamin D] 1,000 unit PO DAILY #30 tablet (1) Altered mental status Qualifiers: Altered mental status type: disorientation Qualified Code(s): R41.0 - Disorientation, unspecified (2) Failure to thrive Qualifiers: Failure to thrive age range: in adult Qualified Code(s): R62.7 - Adult failure to thrive (3) Dementia Qualifiers: Dementia type: vascular dementia Dementia behavioral disturbance: with behavioral disturbance Qualified Code(s): F01.51 - Vascular dementia with behavioral disturbance
[2018-08-09] MEDS: traZODone 50 MG TABLET PO PRN (20:43)
[2018-08-10 04:18] LABS: Hematocrit 40.9 % (35.3-44.9); Hemoglobin 13.4 g/dL (11.5-15.4); Mean Corpuscular HGB Conc 32.8 g/dL (31.6-35.5); Mean Corpuscular Hemoglobin 30.9 pg (28.0-33.3); Mean Corpuscular Volume 94.2 fL (83.0-100.0); Mean Platelet Volume 8.5 fL (9.4-12.4); Platelet Count 240 K/mcL (140-400); Red Blood Count 4.34 M/mcL (3.82-4.97)
[2018-08-10 04:41] LABS: BUN/Creatinine Ratio 30 (6-26); Blood Urea Nitrogen 21 mg/dL (8-23); Calcium 9.8 mg/dL (8.6-10.3); Carbon Dioxide 27 mEq/L (23-29); Chloride 100 mEq/L (98-107); Glucose 118 mg/dL (70-105); Osmolality,Calculated 284 (280-300); Potassium 4.7 mEq/L (3.5-5.1); Sodium 135 mEq/L (136-145); eGFR For Non-African Americans > 60 (> 60)
[2018-08-10] MEDS: 0.9 % Sodium Chloride 1,000 ML IVC SCH ×2 (08:07→14:36)
[2018-08-10] MEDS: amLODIPine 5 MG TABLET PO SCH (08:30)
[2018-08-10] MEDS: Cholecalciferol (D-3) 1,000 UNIT TABLET PO SCH (08:30)
[2018-08-10] MEDS: Multivit/Ca/Min/Fe/FA 1 TAB TABLET PO SCH (08:31)
[2018-08-10] MEDS ORDERED: Nicotine 21 MG PATCH.TD24 TD SCH (11:15)
--- NOTE | 2018-08-10 12:04 | Internal Med Progress Note ---
Hospitalist Progress Note - Encounter Date of Encounter: 08/10/18 Time of Encounter: 12:01 - Subjective Interval History: Since seen and examined at bedside with daughters. Patient continues to have behavioral disturbances and being very violent. Psychiatry is now recommending inpatient placement for cognitive psychiatric treatment which I believe would be the safest and best thing for the patient. Patient does allow a brief exam and denies any chest pain or shortness of breath. Patient alert to self and place currently. Had discussion with daughters and patient advocate and social work regarding plan to try to arrange placement for her behavioral issues. - Exam Vitals: Temp Pulse Resp BP Pulse Ox 98.5 F 64 16 110/64 95 08/10/18 11:17 08/10/18 11:17 08/10/18 11:17 08/10/18 11:17 08/10/18 11:17 Exam: Constitutional: No acute distress, Alert Psych: AAO x 1-2; intermittent aggression; unable to assess insight HEENT: NCAT, EOMI Neck: supple, no JVD Cardio: regular rate and rhythm, +s1s2 Resp: clear to ascultation bilaterally Abd: soft, non tender/non distended Extremities: no clubbing/cyanosis/edema appreciated Neuro: no focal deficits appreciated; doesnt coopareate with all commands, moves all extremities sympetrically, CNII-XII grossly intact - Assessment and Plan (1) Dementia with behavioral disturbance Current Visit: Yes Status: Acute Assessment and Plan: Patient with subacute behavioral disturbances associated with severe vascular dementia likely instigated by does have her in 6 weeks ago -Patient medically clear for discharge for psychiatric corrective impairment as recommended by psychiatry -There is no evidence of acute CVA on CT scan or physical exam (2) DVT prophylaxis Current Visit: Yes Status: Acute Assessment and Plan: -lovenox DVT Prophylaxis: -start lovenox sq - Summary of Assessment and Plan Summary of Assessment and Plan: Psychiatry recommending placement for psychiatric cognitive impairment. There is no evidence of acute CVA on CAT scan or physical exam. Patient is medically stable for placement for psychiatric cognitive impairment. -Patient would benefit from wheelchair she has a significant mobility limitation that impairs her ability to participate in mobility related activities of daily living such as toileting and feeding dressing grooming bathing; I do not believe that this limitation could be sufficiently resolved with a cane or walker, I believe that this manual wheelchair will significantly improve her ability to participate in her activities of daily living, she has not expressed unwillingness to use a manual wheelchair, I believe that the patient has sufficient upper extremity function and physical and mental capabilities once her current behavioral issues are addressed to self propel the manual wheelchair in the home during a typical day and has a caregiver available willing and able to provide assistance with wheelchair -I believe the patient would benefit from a hospital bed because I believe that the head of the bed needs to be elevated more than 30 degrees due to problems with anticipated aspiration. - Time Spent with Patient Total time spent is greater than 50% in coordination of care (as documented) at patient's floor/unit and/or counseling patient: 25 - 35 minutes Plan of Care Discussed with: case management (Plan of care discussed with both ronda, patient advocate, social work, RN) Internal Medicine: Result - Labs CBC & Chem 7: 08/10/18 03:57 08/10/18 03:57 Labs: Short CBC 08/10/18 Range/Units 03:57 WBC 10.9 D (4.3-11.1) K/mcL Hgb 13.4 (11.5-15.4) g/dL Hct 40.9 (35.3-44.9) % Plt Count 240 (140-400) K/mcL BMP 08/10/18 03:57 Sodium 135 L Potassium 4.7 Chloride 100 Carbon Dioxide 27 BUN 21 Creatinine 0.71 Glucose 118 H Calcium 9.8 Consult Discharge Plan - Plan Referrals: Chuy Lloyd MD [Primary Care Provider] - (Requested a follow up appointment in 7-10 days. ) Jose Garcia MD [Partnered Physician] - 08/14/18 4:15 am Prescriptions: amLODIPine [Norvasc] 5 mg PO DAILY #30 tablet Calcium Carbonate [Tums] 1,000 mg PO QID #90 tab.chew Cholecalciferol (D-3) [Vitamin D] 1,000 unit PO DAILY #30 tablet (1) Dementia with behavioral disturbance Qualifiers: Dementia type: vascular dementia Qualified Code(s): F01.51 - Vascular dementia with behavioral disturbance
[2018-08-10 15:30] VITALS: BP 141/64
--- NOTE | 2018-08-10 16:58 | Discharge Summary ---
- NOTES TO OUTPATIENT PROVIDER Notes to Outpatient Provider: Presented with behavioral disturbances associated with her dementia and will be discharged to geriatric psychiatry facility for adjustment of her medications. Date of Encounter: 08/10/18 Time of Encounter: 16:55 - Discharge Diagnosis (1) Dementia with behavioral disturbance Priority: Primary Status: Acute Qualifiers: Dementia type: vascular dementia Qualified Code(s): F01.51 - Vascular dementia with behavioral disturbance (2) DVT prophylaxis Priority: Secondary Status: Acute Hospital course: Ms. Kline is a 78 year old female with a history of severe vascular dementia who presented with behavioral disturbances. The patient recently had 2 deaths in the family including her . The patient had rapid deterioration of her dementia with aggressive and psychotic behaviors. The patient was seen by psychiatry who recommended inpatient geriatric psychiatric placement. The patient is medically cleared for discharge on August 10 2018 to inpatient geriatric psychiatric facility [facility]. The patient's laboratory studies have been unremarkable and CT of the brain revealed no acute abnormality. The family is very much in agreement of inpatient placement for adjustment of medications. The patient follow-up with primary care physician within one week after discharge of geriatric psychiatric facility. Discharge discussed with: patient, family, nurse - Time Spent with Patient Total time spent providing and/or coordinating discharge services: Less than 30 minutes - Discharge Medications Prescriptions: amLODIPine [Norvasc] 5 mg PO DAILY #30 tablet Calcium Carbonate [Tums] 1,000 mg PO QID #90 tab.chew Cholecalciferol (D-3) [Vitamin D] 1,000 unit PO DAILY #30 tablet Home Medications: Citalopram Hydrobromide [Celexa] 40 mg PO DAILY 02/07/17 [History] Donepezil HCl [Aricept] 5 mg PO HS 02/07/17 [History] Losartan Potassium [Cozaar] 50 mg PO DAILY 02/07/17 [History] Multivitamin [One Daily Essential] 1 tab PO DAILY 04/23/18 [History] ALPRAZolam [Xanax 0.5 MG Tablet] 0.25 - 0.5 mg PO BID PRN 08/07/18 [History] traZODone [TraZODone] 50 - 100 mg PO HS PRN 08/07/18 [History] Atorvastatin [Lipitor] 40 mg PO HS tablet 08/09/18 [Rx] Calcium Carbonate [Tums] 1,000 mg PO QID #90 tab.chew 08/09/18 [Rx] Cholecalciferol (D-3) [Vitamin D] 1,000 unit PO DAILY #30 tablet 08/09/18 [Rx] amLODIPine [Norvasc] 5 mg PO DAILY #30 tablet 08/09/18 [Rx] Allergies/Adverse Reactions: 3 Allergy/AdvReac Type Severity Reaction Status Date / Time Histamine H2 Inhibitors Allergy Rash Verified 08/07/18 08:52 Date of admission: 08/07/18 07:54 Primary care physician: Chuy Lloyd MD Consults: 08/07/18 09:04 Consult to Line Staker [CONS] Routine Reason for SW Consult: Daughters cannot take care of pt at home. Wanting SNF placement. [facility]. 08/07/18 09:49 Consult to Physical Therapy [CONS] Routine Comment: Evaluate, develop and implement POC Reason for Consult: Gen weakness Does patient have active BEDREST order?: No Is patient medically & hemodynamically stable?: Yes 08/08/18 11:06 Consult to Psychiatry [CONS] Routine Consulting Provider: Psychiatry Cora Reason consult: Confusion Call Completed: Yes - Constitutional Vitals: Temp Pulse Resp BP Pulse Ox 98.5 F 91 15 141/64 92 08/10/18 11:17 08/10/18 15:29 08/10/18 15:29 08/10/18 15:29 08/10/18 15:29 General appearance: Present: cooperative, pleasant Exam: Constitutional: No acute distress, Alert Psych: AAO x 1-2; intermittent aggression; unable to assess insight HEENT: NCAT, EOMI Neck: supple, no JVD Cardio: regular rate and rhythm, +s1s2 Resp: clear to ascultation bilaterally Abd: soft, non tender/non distended Extremities: no clubbing/cyanosis/edema appreciated Neuro: no focal deficits appreciated; doesnt coopareate with all commands, moves all extremities sympetrically, CNII-XII grossly intact - Patient Status Disposition: Transfer Psychiatric Hosp Condition: Good Functional capacity at discharge: independent ambulation Overall status at discharge: patient is progressing back to baseline - Discharge Instructions Follow Up With: Chuy Lloyd MD [Primary Care Provider] - (Requested a follow up appointment in 7-10 days. ) Jose Garcia MD [Partnered Physician] - 08/14/18 4:15 am - Diet and Activity Activity: increase activity as tolerated Diet: advance to your usual diet
--- NOTE | 2018-08-10 17:36 | Physician Discharge Referral ---
ExtendedCare Referral Info Transfer To: Geriatric psych unit Provider in Charge after Transfer: PCP Institutional Level of Care: Skilled - Transfer Medications Prescriptions: amLODIPine [Norvasc] 5 mg PO DAILY #30 tablet Calcium Carbonate [Tums] 1,000 mg PO QID #90 tab.chew Cholecalciferol (D-3) [Vitamin D] 1,000 unit PO DAILY #30 tablet Home Medications: Citalopram Hydrobromide [Celexa] 40 mg PO DAILY 02/07/17 [History] Donepezil HCl [Aricept] 5 mg PO HS 02/07/17 [History] Losartan Potassium [Cozaar] 50 mg PO DAILY 02/07/17 [History] Multivitamin [One Daily Essential] 1 tab PO DAILY 04/23/18 [History] ALPRAZolam [Xanax 0.5 MG Tablet] 0.25 - 0.5 mg PO BID PRN 08/07/18 [History] traZODone [TraZODone] 50 - 100 mg PO HS PRN 08/07/18 [History] Atorvastatin [Lipitor] 40 mg PO HS tablet 08/09/18 [Rx] Calcium Carbonate [Tums] 1,000 mg PO QID #90 tab.chew 08/09/18 [Rx] Cholecalciferol (D-3) [Vitamin D] 1,000 unit PO DAILY #30 tablet 08/09/18 [Rx] amLODIPine [Norvasc] 5 mg PO DAILY #30 tablet 08/09/18 [Rx] Allergies/Adverse Reactions: 3 Allergy/AdvReac Type Severity Reaction Status Date / Time Histamine H2 Inhibitors Allergy Rash Verified 08/07/18 08:52 - Respiratory Orders Smoking Cessation: Smoking cessation has been advised. For more information, call the [place] Tobacco Quit Line at 2-119-OXIM-NOW. CERTIFICATION: I certify that the transfer of the above named patient to an Extended Care Facility is necessary for the continuing treatment of the diagnosis listed. The above information is true and accurate reflection of patient's current condition. Confidential - Redisclosure prohibited without a patient's written consent.
[2018-08-11] MEDS ORDERED: *HR* Enoxaparin 40 MG/0.4 ML SYRINGE SQ SCH (06:00)
== END 2018-08-10 18:51 ==
LOC: EMEROOARM 04:40 → 3BNU 04:40 → MERGE 07:54 → 3BNU 08:37
PROVIDERS: ADMIT Internal Medicine; ATTEND Internal Medicine

== ENCOUNTER 2018-10-12 14:43 | Inpatient (IN) ==
[2018-10-12] MEDS ORDERED: methylPREDNISolone 125 MG/2 ML VIAL IVP ONE (14:48)
--- NOTE | 2018-10-12 14:52 | Emergency Department Note ---
Disposition Clinical Impression: Hypoxia, Elevated troponin, Elevated d-dimer, Hypokalemia Dyspnea Qualifiers: Dyspnea type: unspecified Qualified Code(s): R06.00 - Dyspnea, unspecified Anemia Qualifiers: Anemia type: unspecified type Qualified Code(s): D64.9 - Anemia, unspecified Leukocytosis Qualifiers: Leukocytosis type: unspecified Qualified Code(s): D72.829 - Elevated white blood cell count, unspecified Disposition: Admitted As Inpatient Condition: Good Referrals: NONE,PCP [Primary Care Provider] - Time of Disposition: 18:32 General Adult HPI - General Stated complaint: SOB Time Seen by Provider: 10/12/18 14:48 Source: patient, EMS Mode of arrival: EMS Limitations: no limitations Nursing Notes Reviewed: Yes Vital Signs Reviewed: Yes - History of Present Illness HPI Narrative: Patient is a 78-year-old female that presents emergency department via EMS with reports of increased shortness of breath. They state that initially her oxygen saturations in the 70s. They gave her breathing treatment in route and the patient's saturation has significantly improved. Patient states that she is not having any difficulty breathing. Patient states that there is that she came to the hospital is because her father told her that she was not able to smoke. Patient states that she is not having chest pain, abdominal pain, nausea, vomiting, diarrhea or any other symptoms at this time. Patient provides minimal history on her shortness of breath. - Related Data Home Medications Medication Instructions Recorded Confirmed Citalopram Hydrobromide [Celexa] 40 mg PO DAILY 02/07/17 08/07/18 Donepezil HCl [Aricept] 5 mg PO HS 02/07/17 08/07/18 Losartan Potassium [Cozaar] 50 mg PO DAILY 02/07/17 04/23/18 Multivitamin [One Daily Essential] 1 tab PO DAILY 04/23/18 08/07/18 ALPRAZolam [Xanax 0.5 MG Tablet] 0.25 - 0.5 mg PO BID PRN 08/07/18 08/07/18 traZODone [TraZODone] 50 - 100 mg PO HS PRN 08/07/18 08/07/18 Previous Rx's Medication Instructions Recorded Atorvastatin [Lipitor] 40 mg PO HS tablet 08/09/18 Calcium Carbonate [Tums] 1,000 mg PO QID #90 tab.chew 08/09/18 Cholecalciferol (D-3) [Vitamin D] 1,000 unit PO DAILY #30 tablet 08/09/18 amLODIPine [Norvasc] 5 mg PO DAILY #30 tablet 08/09/18 Allergies Allergy/AdvReac Type Severity Reaction Status Date / Time Histamine H2 Inhibitors Allergy Rash Verified 08/07/18 08:52 All systems ED: reviewed and negative except as stated. Constitutional: Denies: fever Cardiovascular: Denies: chest pain Respiratory: Reports: dyspnea (per ems) Past Medical History - Past Medical History Medical history: Reports: dementia, hypertension, other Surgical history: Reports: hysterectomy Psychiatric history: Reports: anxiety, depression CLINICAL APPEALS REVIEWER history: Reports: no CLINICAL APPEALS REVIEWER history - Social History Smoking Status: Current some day smoker Smokeless Tobacco Status: No Alcohol use: Reports: none Drug use: Reports: none Physical Exam - General Limitations: no limitations General appearance: alert, in no apparent distress - Head Head exam: atraumatic, normocephalic - Eye Eye exam: Present: normal appearance, EOMI - Neck Neck exam: Present: normal inspection, full ROM, trachea midline - Respiratory Respiratory exam: Present: normal lung sounds bilaterally. Absent: respiratory distress, wheezes - Cardiovascular Cardiovascular exam: Present: regular rate, normal rhythm, normal heart sounds, +S1, +S2 - Abdominal Exam Abdominal exam: Present: soft, Non-Tender, normal bowel sounds - Neurological Exam Neurological exam: Present: alert, oriented X3 - Psychiatric Psychiatric exam: Present: normal affect, normal mood - Skin Skin exam: Present: warm, dry, intact Course Vital Signs Temperature 99.6 F 10/12/18 14:52 Pulse Rate 103 10/12/18 14:52 Respiratory Rate 26 10/12/18 14:52 Blood Pressure 114/86 10/12/18 14:52 O2 Sat by Pulse Oximetry 92 10/12/18 14:52 Temperature 99.6 F 10/12/18 14:52 Pulse Rate 76 10/12/18 17:13 Respiratory Rate 16 10/12/18 17:13 Blood Pressure 120/44 10/12/18 17:13 O2 Sat by Pulse Oximetry 92 10/12/18 17:13 Oxygen Delivery Oxygen Delivery Nasal Cannula Medical Decision Making - MDM Narrative Medical decision making narrative: Due the patient's into the emergency department with reports of shortness of breath We will obtain basic laboratory testing, chest x-ray and breathing treatments. Patient's laboratory testing shows an elevated troponin of 0.07. The patient has been chest pain free throughout her stay here in the emergency department and prior to arrival. Patient has required supplemental oxygen while here in the emergency department. A CTA of the chest was ordered to evaluate for possible clot burden and the cause of the elevated troponin. The CT of the chest was negative for pulmonary emboli did not show any evidence of pneumonia. Patient was given a breathing treatment here in the emergency department. Family was at bedside and stated that she had not been complaining of any chest pain to their knowledge. Patient did have a mildly low potassium of 3.0. Patient will be given 40 of oral potassium. Due to the patient presented to the emergency department with hypoxia and an elevated troponin without chest pain and do not feel the patient will require heparin at this time. The CTA of the chest was ordered due to a significantly elevated d-dimer. Patient does have a leukocytosis 16.8 however this is a non-specific finding. Patient does have an anemia however this appears to be intermittently chronic for her. Patient will need to be admitted to the hospital for further evaluation and management. I called and spoke the admitting hospitals Dr. Cardenas and he is except the patient to their service. Patient be admitted to the hospital this time for further evaluation and management. - Medical Records Medical records reviewed: Yes I reviewed the patient's medical records. - Lab Data Lab results reviewed: Yes I reviewed the patient's lab results. Result diagrams: 10/12/18 15:10 10/12/18 15:10 Lab Results 10/12/18 10/12/18 10/12/18 Range/Units 15:10 15:10 15:10 WBC 16.3 H (4.3-11.1) K/mcL RBC 3.59 L (3.82-4.97) M/mcL Hgb 10.8 L (11.5-15.4) g/dL Hct 35.3 (35.3-44.9) % MCV 98.3 (83.0-100.0) fL MCH 30.1 (28.0-33.3) pg MCHC 30.6 L (31.6-35.5) g/dL RDW 15.3 H (11.5-14.5) % Plt Count 281 (140-400) K/mcL MPV 9.3 L (9.4-12.4) fL Immature Gran % 3.4 (0-4) % Seg Neutrophils % 82.1 % Lymphocytes % 5.8 % Monocytes % 8.2 % Eosinophils % 0.4 % Basophils % 0.1 % Neutrophils # 13.4 H (1.6-8.9) K/mcL Lymphocytes # 0.9 (0.6-4.6) K/mcL Monocytes # 1.3 (0.0-1.3) K/mcL Eosinophils # 0.1 (0.0-0.6) K/mcL Basophils # 0.0 (0.0-0.2) K/mcL Nucleated RBCs/100 WBC 0.1 H (0) /100 WBC D-Dimer (0-500) ng/mLFEU Sodium 143 (136-145) mEq/L Potassium 3.0 L (3.5-5.1) mEq/L Chloride 102 (98-107) mEq/L Carbon Dioxide 31 H (23-29) mEq/L BUN 20 (8-23) mg/dL Creatinine 0.77 (0.60-1.20) mg/dL Est GFR ( Amer) > 60 (> 60) Est GFR (Non-Af Amer) > 60 (> 60) BUN/Creatinine Ratio 26 (6-26) Glucose 316 H (70-105) mg/dL Calculated Osmolality 311 H (280-300) Lactic Acid 2.1 (0.5-2.2) mmol/L Calcium 9.1 (8.6-10.3) mg/dL Troponin I 0.07 H* (< 0.04) ng/mL B-Natriuretic Peptide (Less than 100) pg/mL 10/12/18 10/12/18 Range/Units 15:10 15:10 WBC (4.3-11.1) K/mcL RBC (3.82-4.97) M/mcL Hgb (11.5-15.4) g/dL Hct (35.3-44.9) % MCV (83.0-100.0) fL MCH (28.0-33.3) pg MCHC (31.6-35.5) g/dL RDW (11.5-14.5) % Plt Count (140-400) K/mcL MPV (9.4-12.4) fL Immature Gran % (0-4) % Seg Neutrophils % % Lymphocytes % % Monocytes % % Eosinophils % % Basophils % % Neutrophils # (1.6-8.9) K/mcL Lymphocytes # (0.6-4.6) K/mcL Monocytes # (0.0-1.3) K/mcL Eosinophils # (0.0-0.6) K/mcL Basophils # (0.0-0.2) K/mcL Nucleated RBCs/100 WBC (0) /100 WBC D-Dimer 1414 H (0-500) ng/mLFEU Sodium (136-145) mEq/L Potassium (3.5-5.1) mEq/L Chloride (98-107) mEq/L Carbon Dioxide (23-29) mEq/L BUN (8-23) mg/dL Creatinine (0.60-1.20) mg/dL Est GFR ( Amer) (> 60) Est GFR (Non-Af Amer) (> 60) BUN/Creatinine Ratio (6-26) Glucose (70-105) mg/dL Calculated Osmolality (280-300) Lactic Acid (0.5-2.2) mmol/L Calcium (8.6-10.3) mg/dL Troponin I (< 0.04) ng/mL B-Natriuretic Peptide 298 H (Less than 100) pg/mL - Radiology Data Radiology results reviewed: Yes I reviewed the patient's radiology results. - EKG Data EKG #1 EKG attestation: Yes I reviewed and interpreted this EKG. EKG results narrative: Patient's EKG shows sinus tachycardia. 104 beats from it, GA interval of 163, QRS duration of 83, QTC of 473. No evidence of STEMI on EKG. Attestation Statement - Attestation Attestation: I, Sonny Wren DO, examined this patient [id number] and my medical decision-making was reviewed with Dr. Je Hernandez, Resident Physician. I agree with the documented findings, disposition and treatment plan as described except to the extent set forth below. Please see my progress notes for details.
[2018-10-12 15:29] LABS: Basophils % 0.1 %; Eosinophils # 0.1 K/mcL (0.0-0.6); Eosinophils % 0.4 %; Hematocrit 35.3 % (35.3-44.9); Hemoglobin 10.8 g/dL (11.5-15.4); Immature Granulocytes % 3.4 % (0-4); Lymphocytes # 0.9 K/mcL (0.6-4.6); Lymphocytes % 5.8 %; Mean Corpuscular HGB Conc 30.6 g/dL (31.6-35.5); Mean Corpuscular Hemoglobin 30.1 pg (28.0-33.3); Mean Corpuscular Volume 98.3 fL (83.0-100.0); Mean Platelet Volume 9.3 fL (9.4-12.4); Monocytes # 1.3 K/mcL (0.0-1.3); Monocytes % 8.2 %; Neutrophils # 13.4 K/mcL (1.6-8.9); Nucleated Red Blood Cells 0.1 /100 WBC (0); Platelet Count 281 K/mcL (140-400); Red Blood Count 3.59 M/mcL (3.82-4.97); Red Cell Distribution Width 15.3 % (11.5-14.5); Segmented Neutrophils % 82.1 %
[2018-10-12 15:52] LABS: BUN/Creatinine Ratio 26 (6-26); Blood Urea Nitrogen 20 mg/dL (8-23); Calcium 9.1 mg/dL (8.6-10.3); Carbon Dioxide 31 mEq/L (23-29); Chloride 102 mEq/L (98-107); Glucose 316 mg/dL (70-105); Osmolality,Calculated 311 (280-300); Sodium 143 mEq/L (136-145); eGFR For Non-African Americans > 60 (> 60)
[2018-10-12 15:58] LABS: Troponin I 0.07 ng/mL (< 0.04)
[2018-10-12] MEDS ORDERED: Isovue-370 500 ML INFUS..BTL IV ONE (16:45)
--- NOTE | 2018-10-12 17:43 | Emergency Department Note ---
Disposition Clinical Impression: Hypoxia, Elevated troponin, Elevated d-dimer, Hypokalemia Dyspnea Qualifiers: Dyspnea type: unspecified Qualified Code(s): R06.00 - Dyspnea, unspecified Anemia Qualifiers: Anemia type: unspecified type Qualified Code(s): D64.9 - Anemia, unspecified Leukocytosis Qualifiers: Leukocytosis type: unspecified Qualified Code(s): D72.829 - Elevated white blood cell count, unspecified Disposition: Admitted As Inpatient Condition: Fair Time of Disposition: 19:02 General Adult HPI - General Chief complaint: ED Shortness of Breath/Dyspnea Stated complaint: SOB Time Seen by Provider: 10/12/18 14:48 Source: patient, EMS Mode of arrival: EMS Limitations: no limitations - History of Present Illness Pain Scale: 0 - Related Data Home Medications Medication Instructions Recorded Confirmed Citalopram Hydrobromide [Celexa] 40 mg PO DAILY 02/07/17 08/07/18 Donepezil HCl [Aricept] 5 mg PO HS 02/07/17 08/07/18 Losartan Potassium [Cozaar] 50 mg PO DAILY 02/07/17 04/23/18 Multivitamin [One Daily Essential] 1 tab PO DAILY 04/23/18 08/07/18 ALPRAZolam [Xanax 0.5 MG Tablet] 0.25 - 0.5 mg PO BID PRN 08/07/18 08/07/18 traZODone [TraZODone] 50 - 100 mg PO HS PRN 08/07/18 08/07/18 Previous Rx's Medication Instructions Recorded Atorvastatin [Lipitor] 40 mg PO HS tablet 08/09/18 Calcium Carbonate [Tums] 1,000 mg PO QID #90 tab.chew 08/09/18 Cholecalciferol (D-3) [Vitamin D] 1,000 unit PO DAILY #30 tablet 08/09/18 amLODIPine [Norvasc] 5 mg PO DAILY #30 tablet 08/09/18 Allergies Allergy/AdvReac Type Severity Reaction Status Date / Time Histamine H2 Inhibitors Allergy Rash Verified 08/07/18 08:52 Constitutional: Denies: fever Cardiovascular: Denies: chest pain Respiratory: Reports: dyspnea (per ems) Past Medical History - Past Medical History Medical history: Reports: dementia, hypertension, other Surgical history: Reports: hysterectomy Psychiatric history: Reports: anxiety, depression ASSAYER HELPER history: Reports: no ASSAYER HELPER history - Social History Smoking Status: Current some day smoker Smokeless Tobacco Status: No Alcohol use: Reports: none Drug use: Reports: none Physical Exam - General Limitations: no limitations General appearance: alert, in no apparent distress Course Vital Signs Temperature 99.6 F 10/12/18 14:52 Pulse Rate 103 10/12/18 14:52 Respiratory Rate 26 10/12/18 14:52 Blood Pressure 114/86 10/12/18 14:52 O2 Sat by Pulse Oximetry 92 10/12/18 14:52 Temperature 99.6 F 10/12/18 14:52 Pulse Rate 78 10/12/18 18:40 Respiratory Rate 24 10/12/18 18:40 Blood Pressure 103/53 10/12/18 18:40 O2 Sat by Pulse Oximetry 91 10/12/18 18:40 Oxygen Delivery Oxygen Delivery Nasal Cannula Medical Decision Making - Lab Data Result diagrams: 10/12/18 15:10 10/12/18 15:10 Lab Results 10/12/18 10/12/18 10/12/18 Range/Units 15:10 15:10 15:10 WBC 16.3 H (4.3-11.1) K/mcL RBC 3.59 L (3.82-4.97) M/mcL Hgb 10.8 L (11.5-15.4) g/dL Hct 35.3 (35.3-44.9) % MCV 98.3 (83.0-100.0) fL MCH 30.1 (28.0-33.3) pg MCHC 30.6 L (31.6-35.5) g/dL RDW 15.3 H (11.5-14.5) % Plt Count 281 (140-400) K/mcL MPV 9.3 L (9.4-12.4) fL Immature Gran % 3.4 (0-4) % Seg Neutrophils % 82.1 % Lymphocytes % 5.8 % Monocytes % 8.2 % Eosinophils % 0.4 % Basophils % 0.1 % Neutrophils # 13.4 H (1.6-8.9) K/mcL Lymphocytes # 0.9 (0.6-4.6) K/mcL Monocytes # 1.3 (0.0-1.3) K/mcL Eosinophils # 0.1 (0.0-0.6) K/mcL Basophils # 0.0 (0.0-0.2) K/mcL Nucleated RBCs/100 WBC 0.1 H (0) /100 WBC D-Dimer (0-500) ng/mLFEU Sodium 143 (136-145) mEq/L Potassium 3.0 L (3.5-5.1) mEq/L Chloride 102 (98-107) mEq/L Carbon Dioxide 31 H (23-29) mEq/L BUN 20 (8-23) mg/dL Creatinine 0.77 (0.60-1.20) mg/dL Est GFR ( Amer) > 60 (> 60) Est GFR (Non-Af Amer) > 60 (> 60) BUN/Creatinine Ratio 26 (6-26) Glucose 316 H (70-105) mg/dL Calculated Osmolality 311 H (280-300) Lactic Acid 2.1 (0.5-2.2) mmol/L Calcium 9.1 (8.6-10.3) mg/dL Magnesium 2.0 (1.6-2.6) mg/dL Troponin I 0.07 H* (< 0.04) ng/mL B-Natriuretic Peptide (Less than 100) pg/mL 10/12/18 10/12/18 Range/Units 15:10 15:10 WBC (4.3-11.1) K/mcL RBC (3.82-4.97) M/mcL Hgb (11.5-15.4) g/dL Hct (35.3-44.9) % MCV (83.0-100.0) fL MCH (28.0-33.3) pg MCHC (31.6-35.5) g/dL RDW (11.5-14.5) % Plt Count (140-400) K/mcL MPV (9.4-12.4) fL Immature Gran % (0-4) % Seg Neutrophils % % Lymphocytes % % Monocytes % % Eosinophils % % Basophils % % Neutrophils # (1.6-8.9) K/mcL Lymphocytes # (0.6-4.6) K/mcL Monocytes # (0.0-1.3) K/mcL Eosinophils # (0.0-0.6) K/mcL Basophils # (0.0-0.2) K/mcL Nucleated RBCs/100 WBC (0) /100 WBC D-Dimer 1414 H (0-500) ng/mLFEU Sodium (136-145) mEq/L Potassium (3.5-5.1) mEq/L Chloride (98-107) mEq/L Carbon Dioxide (23-29) mEq/L BUN (8-23) mg/dL Creatinine (0.60-1.20) mg/dL Est GFR ( Amer) (> 60) Est GFR (Non-Af Amer) (> 60) BUN/Creatinine Ratio (6-26) Glucose (70-105) mg/dL Calculated Osmolality (280-300) Lactic Acid (0.5-2.2) mmol/L Calcium (8.6-10.3) mg/dL Magnesium (1.6-2.6) mg/dL Troponin I (< 0.04) ng/mL B-Natriuretic Peptide 298 H (Less than 100) pg/mL Attestation Statement - Attestation Attestation: I, Sonny Wren DO, examined this patient [id number] and my medical decision-making was reviewed with Dr. Je Hernandez, Resident Physician. I agree with the documented findings, disposition and treatment plan as described except to the extent set forth below. Please see my progress notes for details. 78-year-old female presents to the emergency room from primary care provider's office. She was transported by EMS to the emergency room for evaluation of shortness of breath and chest discomfort and pain. She has no specific history of cardiac related disease or COPD. She does not typically use oxygen at home. She is denying any chest pain at this time. Denies any nausea vomiting or diarrhea. Denies any fevers or chills. Patient does have visible increased work of breathing. Denies any falls trauma or injury. Denies any other specific complaints or issues prior to today. On presentation here the patient is breathing comfortably. Her pulse ox is normal. When EMS did clam picker her pulse ox was in the 70s. Patient is otherwise stable on arrival. Head is atraumatic. Oropharynx is patent. Trachea is midline. Patient has significantly decreased lung sounds bilaterally with intermittent coarse crackles. Denies any specific history of congestive heart failure or cardiac related etiology. Concern is noted for cardiac versus pulmonary related source to symptoms here today. She was initially tachycardic as well as hypoxic. Patient will have CBC, chemistry, troponin, BNP, d-dimer ordered. Chest x-ray as well as urinalysis will be collected. Breathing treatments and steroids will be provided. Disposition will be determined once full workup and treatment course are established. Expect patient will require admission and upon the findings and workup here today. She does not have any high-risk features for pulmonary emboli travel or injury. She does not have any specific sick contacts. See detailed documentation of the physical exam, medical interventi on, medical decision-making and disposition in the resident physician's note. Patient's treatment course at this time. 1715 Patient has elevated d-dimer as well as an elevated troponin and BNP. She still denies chest pain. Her EKG is unremarkable for acute signs of ischemia or signs of myocardial infarction. Patient will be provided with an aspirin as well as CT angiography to be completed of the chest. Admission process will be established after the workup has been completed. Patient's symptoms have been controlled with the breathing treatments steroids and continuation of care. 1815 CT angiography the chest is unremarkable for acute pulmonary emboli fluid accumulation at this point. The patient's hypoxia has been controlled with the breathing treatments. She did have initial troponin was slightly elevated as well as a BNP. Suspicion is that this is secondary to the increased work while breathing on presentation. Patient does not have any diagnostic EKG findings at this point. Patient will be admitted with appropriate medical intervention provided including the symptomatic control for her respiratory related issues. She has denied chest pain throughout the entire treatment course and has not been provided with nitroglycerin or other immediate intervention. Aspirin has been given at this point. Patient will be discussed with the hospitalist for admission. Dr. Cardenas reviewed the case. Patient will be admitted for hypoxia of unknown etiology at this time no specific infectious etiology noted. Patient is otherwise stable. Will monitor here in the emergency room until admission processes established.
[2018-10-12] MEDS ORDERED: Aspirin 81 MG TAB.CHEW PO STA (18:10)
[2018-10-12] MEDS ORDERED: Potassium Chloride Elixir 20 MEQ/15 ML UDC PO ONE (18:12)
[2018-10-12] MEDS ORDERED: Levofloxacin 500 MG/100 ML 500 MG/100 ML BAG IVPB SCH (23:45)
[2018-10-12] MEDS ORDERED: Albuterol 2.5 MG/3 ML NEBULIZER IH PRN (23:50)
[2018-10-12] MEDS ORDERED: Naloxone 0.4 MG/ML INJ IVP PRN (23:50)
[2018-10-13] MEDS: Ipratropium/Albuterol Neb 3 ML IH SCH ×5 (00:59→21:37)
[2018-10-13] MEDS: *HR* Heparin 5,000 UNIT/ML VIAL SQ SCH ×3 (01:00→16:50)
[2018-10-13] MEDS ORDERED: Levofloxacin 500 MG/100 ML 500 MG/100 ML BAG IVPB ONE (01:00)
[2018-10-13] MEDS: MetroNIDAZOLE 500 MG/100 ML 500 MG/100 ML BAG IVPB SCH ×3 (02:03→16:51)
[2018-10-13] MEDS: 0.9 % Sodium Chloride w KCl 20 MEQ/1,000 ML MLS IVC SCH ×2 (02:04→16:31)
[2018-10-13 02:15] LABS: Amphetamine Screen,Urine Negative ng/mL (Cutoff=1000); Barbiturate Screen,Urine Negative ng/mL (Cutoff=200); Benzodiazepines Screen,Urine Negative ng/mL (Cutoff=200); Cannabinoid Screen,Urine Negative ng/mL (Cutoff = 50); Cocaine Screen,Urine Negative ng/mL (Cutoff= 300); Opiate Screen,Urine Negative ng/mL (Cutoff=300); Phencyclidine Screen,Urine Negative ng/mL (Cutoff=25)
--- NOTE | 2018-10-13 03:16 | Internal Med History&Physical ---
Date of Encounter: 10/12/18 Time of Encounter: 23:15 Internal Medicine - H&P: HPI Chief complaint: chest pain Admitted From: Emergency Dept Plans for Post Hospital Care: Home History of present illness: Ms. Kline is a 78 year old female who was brought in to ER today by her family for concerns of chest pain. Workup in ER included routine labs, imaging, and CTA of the chest. There was no evidence of PE but there was concern for possible pneumonia. She was subsequently admitted to the hospitalist service. Upon my assessment of the patient, patient is somnolent and offers no history. There are no family members present. She wakes up to verbal and painful stimuli. She appears confused and disoriented. I am unable to obtain any history whatsoever. I reviewed the ER records and limited inpatient records. I spoke with the patient's nurse who states that family left the premises immediately after patient was brought in from the ER. Reportedly, patient lives at home and family members check in on her periodically. She is incontinent of urine and oftentimes wears Depends diaper. No further history could be obtained. Past Med Surg Social Fam HX - Past Medical History Source: old records reviewed Medical history: dementia, hypertension, other Additional medical history: encephalitis Psychiatric history: anxiety, depression - Past Surgical History Surgical History: hysterectomy - Social History Smoking Status: Current some day smoker Smokeless Tobacco Status: No Alcohol use: none Drug use: none - Family History Sister Living Status: Hx Family Respiratory Disorders: Yes Internal Medicine - H&P: Meds Citalopram Hydrobromide [Celexa] 40 mg PO DAILY 02/07/17 [History] Donepezil HCl [Aricept] 5 mg PO HS 02/07/17 [History] Losartan Potassium [Cozaar] 50 mg PO DAILY 02/07/17 [History] Multivitamin [One Daily Essential] 1 tab PO DAILY 04/23/18 [History] ALPRAZolam [Xanax 0.5 MG Tablet] 0.25 - 0.5 mg PO BID PRN 08/07/18 [History] traZODone [TraZODone] 50 - 100 mg PO HS PRN 08/07/18 [History] Atorvastatin [Lipitor] 40 mg PO HS tablet 08/09/18 [Rx] Calcium Carbonate [Tums] 1,000 mg PO QID #90 tab.chew 08/09/18 [Rx] Cholecalciferol (D-3) [Vitamin D] 1,000 unit PO DAILY #30 tablet 08/09/18 [Rx] amLODIPine [Norvasc] 5 mg PO DAILY #30 tablet 08/09/18 [Rx] Allergy/AdvReac Type Severity Reaction Status Date / Time Histamine H2 Inhibitors Allergy Rash Verified 08/07/18 08:52 ROS unobtainable: due to mental status - Constitutional Vitals: Temp Pulse Resp BP Pulse Ox 98.1 F 73 14 117/61 99 10/12/18 23:37 10/12/18 23:37 10/13/18 01:03 10/12/18 23:37 10/13/18 01:03 General appearance: Present: A&O X 0, disheveled, no acute distress. Absent: answers questions appropriately Exam: somnolent; responds easily to verbal and painful stimuli; offers no history; gurgling sounds concerning for aspiration - Head Head exam: Present: atraumatic, normal inspection - Eye Eye exam: Present: PERRL (pupils 2mm -- reactive bilaterally). Absent: scleral icterus - ENT ENT exam: Present: mucous membranes dry, normal exam, normal oropharynx Additional comments: food particles (crackers) in mouth - Neck Neck exam general surgery: Present: full ROM, supple. Absent: tenderness, nuchal rigidity, thyromegaly - Respiratory Respiratory exam: Present: prolonged expiratory phase, rales, respiratory distress (mild), rhonchi, wheezes (scatterred), tachypnea. Absent: chest wall t enderness - Cardiovascular Cardiovascular exam: Present: distant heart sounds, RRR, +S1, +S2. Absent: diastolic murmur, systolic murmur - GI/Abdominal GI/Abdominal exam: Present: normal bowel sounds, soft. Absent: guarding, hepatomegaly, mass, rebound, splenomegaly, tenderness - Extremities Exam Extremities exam: Present: full ROM, warm, radial pulses palpable and symmetrical. Absent: calf tenderness, joint swelling, pedal edema, tenderness - Back Exam Back exam: Absent: CVA tenderness (L), CVA tenderness (R) - Neurological Exam Additional comments: difficult to assess due to somnolence; purposeful response to loud and painful stimuli - Skin Skin exam: Present: dry, intact, warm Internal Med - H&P Results - Labs CBC & Chem 7: 10/12/18 15:10 10/12/18 15:10 Labs: Short CBC 10/12/18 Range/Units 15:10 WBC 16.3 H (4.3-11.1) K/mcL Hgb 10.8 L (11.5-15.4) g/dL Hct 35.3 (35.3-44.9) % Plt Count 281 (140-400) K/mcL Neutrophils # 13.4 H (1.6-8.9) K/mcL BMP 10/12/18 15:10 Sodium 143 Potassium 3.0 L Chloride 102 Carbon Dioxide 31 H BUN 20 Creatinine 0.77 Glucose 316 H Calcium 9.1 Cardiac Enzymes 10/12/18 10/13/18 Range/Units 15:10 00:30 Troponin I 0.07 H* 0.04 H* (< 0.04) ng/mL - EKG Data -: EKG Interpreted by Myself - EKG Data Prior EKG available for review: no EKG comments: 10/13/18 04:16 sinus tachycardia - Impressions ITS Impressions Chest X-Ray 10/12/18 14:48 IMPRESSION: 1. Bandlike atelectasis at the left mid lung zone. Mild pulmonary vascular congestion. 2. No acute focal airspace consolidation or overt pulmonary edema. D/ / Troy Day MD / Troy Day MD Interpreting Provider: Troy Day MD Chest CTA 10/12/18 16:45 IMPRESSION: 1. Breathing motion greatly blurs detail. 2. No pulmonary embolism evident. 3. Nonspecific opacity lingula left upper lobe may reflect pneumonitis. 4. Minimal bibasilar subsegmental atelectasis. 5. Calcific atherosclerosis aorta and coronary arteries. D/ / Mauri Marshall / Mauri Marshall Interpreting Provider: Mauri Marshall - Diagnostic Studies CT scan - chest Status: image reviewed by me (Report reviewed as well: no PE; CECILIA opacity) - Assessment and plan (1) Aspiration pneumonia Current Visit: Yes Status: Suspected Assessment and plan: 1. Strict NPO. 2. Consult Speech therapy. 3. Will treat with Levaquin and Flagyl to cover aspiration type dipti. 4. Oxygen and aerosols as necessary. Qualifiers: Aspiration pneumonia type: unspecified Laterality: left Lung location: upper lobe of lung Qualified Code(s): J69.0 - Pneumonitis due to inhalation of food and vomit (2) Chest pain Current Visit: Yes Status: Suspected Assessment and plan: 1. Unable to validate reports of chest pain. 2. Will cycle troponins and EKG's. 3. Will order ECHO. Qualifiers: Chest pain type: unspecified Qualified Code(s): R07.9 - Chest pain, unspecified (3) Elevated troponin Current Visit: Yes Status: Acute Assessment and plan: 1. As above. 2. May need cardiology consult if significant rise in troponin. 3. Suspect demand ischemia from aspiration pneumonia. (4) Altered mental status Current Visit: Yes Status: Acute Assessment and plan: 1. I ordered urine toxicity screen given hypersomnolence. 2. Reported history of dementia -- unsure of baseline mental/cognitive state. 3. Need to discuss with family her current level of cognition/mentation. Qualifiers: Altered mental status type: somnolence Qualified Code(s): R40.0 - Somnolence (5) DVT prophylaxis Current Visit: Yes Status: Acute Assessment and plan: 1. Heparin SQ.
[2018-10-13] MEDS: methylPREDNISolone 125 MG/2 ML VIAL IVP SCH ×2 (05:38→16:50)
[2018-10-13 06:29] LABS: Basophils % 0.1 %; Eosinophils % 0.2 %; Hematocrit 33.2 % (35.3-44.9); Hemoglobin 10.2 g/dL (11.5-15.4); Immature Granulocytes % 2.2 % (0-4); Lymphocytes % 7.8 %; Mean Corpuscular HGB Conc 30.7 g/dL (31.6-35.5); Mean Corpuscular Hemoglobin 30.1 pg (28.0-33.3); Mean Corpuscular Volume 97.9 fL (83.0-100.0); Mean Platelet Volume 9.3 fL (9.4-12.4); Monocytes # 0.4 K/mcL (0.0-1.3); Monocytes % 3.4 %; Neutrophils # 11.1 K/mcL (1.6-8.9); Platelet Count 278 K/mcL (140-400); Red Blood Count 3.39 M/mcL (3.82-4.97); Red Cell Distribution Width 15.3 % (11.5-14.5); Segmented Neutrophils % 86.3 %
[2018-10-13 06:36] LABS: INR 1.4; Prothrombin Time 15.4 Seconds (9.4-12.1)
[2018-10-13 06:39] LABS: Activated Partial Thrombo Time 28.7 Seconds (26.0-36.0)
[2018-10-13 06:48] LABS: Alanine Aminotransferase 11 Units/L (7-52); Albumin 3.2 g/dL (3.5-5.7); Albumin/Globulin Ratio 0.9 (1.1-2.2); Alkaline Phosphatase 113 Units/L (34-104); Aspartate Amino Transferase 10 Units/L (13-39); BUN/Creatinine Ratio 40 (6-26); Bilirubin,Total 0.4 mg/dL (0.3-1.0); Blood Urea Nitrogen 23 mg/dL (8-23); Calcium 9.4 mg/dL (8.6-10.3); Carbon Dioxide 28 mEq/L (23-29); Chloride 110 mEq/L (98-107); Chol/HDL Ratio 2.5 (0-4.9); Cholesterol 107 mg/dL (< 200); Globulin 3.7 g/dL (2.4-3.5); Glucose 265 mg/dL (70-105); HDL Cholesterol 43 mg/dL (40-59); LDL Cholesterol,Calculated 52 mg/dL (0-99); Magnesium 2.1 mg/dL (1.6-2.6); Osmolality,Calculated 319 (280-300); Potassium 3.3 mEq/L (3.5-5.1); Sodium 148 mEq/L (136-145); Total Protein 6.9 g/dL (6.4-8.9); Triglycerides 62 mg/dL (< 150); eGFR For Non-African Americans > 60 (> 60)
[2018-10-13] MEDS ORDERED: Potassium Chloride 40 MEQ, Lidocaine 1% 2 ML in D5% in Water 500 ML IVPB ONE (11:04)
--- NOTE | 2018-10-13 11:44 | Event Note ---
Date of Encounter: 10/13/18 Time of Encounter: 11:44 She was seen and examined earlier by hospitalist. I did speak with family patient's daughter Felisha Kline informed me that patient has been home from geriatric psych in [place] for approximately a month she does have episodes of agitation and confusion and combativeness which she states is her baseline. Patient was evaluated by speech therapy recommending pureed with medications in applesauce. And it did give me the number to Ramila Kline who is the patient's caregiver and she knows her medications contact number is [phone] inform nursing staff to update her med rec
[2018-10-13] MEDS: Levofloxacin 500 MG/100 ML 500 MG/100 ML BAG IVPB SCH (23:19)
[2018-10-14] MEDS: MetroNIDAZOLE 500 MG/100 ML 500 MG/100 ML BAG IVPB SCH ×3 (00:27→18:03)
[2018-10-14 03:31] LABS: Basophils % 0.1 %; Eosinophils % 0.3 %; Hematocrit 31.8 % (35.3-44.9); Hemoglobin 9.7 g/dL (11.5-15.4); Lymphocytes % 6.5 %; Mean Corpuscular HGB Conc 30.5 g/dL (31.6-35.5); Mean Corpuscular Hemoglobin 30.4 pg (28.0-33.3); Mean Corpuscular Volume 99.7 fL (83.0-100.0); Mean Platelet Volume 9.5 fL (9.4-12.4); Monocytes # 0.9 K/mcL (0.0-1.3); Monocytes % 5.8 %; Neutrophils # 13.3 K/mcL (1.6-8.9); Nucleated Red Blood Cells 0.1 /100 WBC (0); Platelet Count 287 K/mcL (140-400); Red Blood Count 3.19 M/mcL (3.82-4.97); Red Cell Distribution Width 15.4 % (11.5-14.5); Segmented Neutrophils % 84.3 %
[2018-10-14 03:45] LABS: BUN/Creatinine Ratio 50 (6-26); Blood Urea Nitrogen 29 mg/dL (8-23); Calcium 9.3 mg/dL (8.6-10.3); Carbon Dioxide 26 mEq/L (23-29); Chloride 109 mEq/L (98-107); Glucose 248 mg/dL (70-105); Osmolality,Calculated 312 (280-300); Potassium 3.8 mEq/L (3.5-5.1); Sodium 144 mEq/L (136-145); eGFR For Non-African Americans > 60 (> 60)
[2018-10-14] MEDS: Ipratropium/Albuterol Neb 3 ML IH SCH ×4 (03:59→22:16)
[2018-10-14] MEDS: *HR* Heparin 5,000 UNIT/ML VIAL SQ SCH ×2 (06:34→18:03)
[2018-10-14] MEDS: cefTRIAXone 2,000 MG in Water for inj. (sterile) 20 ML 20 ML IVPB SCH (06:35)
[2018-10-14] MEDS: methylPREDNISolone 125 MG/2 ML VIAL IVP SCH (06:35)
--- NOTE | 2018-10-14 08:55 | Internal Med Progress Note ---
Hospitalist Progress Note - Encounter Date of Encounter: 10/14/18 Time of Encounter: 08:50 - Subjective Interval History: Patient was seen and examined at bedside. She is alert and oriented to name only. Is not very cooperative with examine- at times she just mimics words that are spoken. She will call out and appears anxious. - Exam Vitals: Temp Pulse Resp BP Pulse Ox 99.1 F 76 16 124/58 90 10/14/18 07:14 10/14/18 07:14 10/14/18 07:14 10/14/18 07:14 10/14/18 07:14 Exam: GENERAL: Patient is agitated and uncooperative during exam oriented to name only-cachectic HEENT: Head is normocephalic and atraumatic. Extraocular muscles are intact. Pupils are equal, round, and reactive to light and accommodation. NECK: Supple. No carotid bruits. No lymphadenopathy or thyromegaly. LUNGS: CTA, symmetrical expansion. Respirations easy and unlabored HEART: Regular rate and rhythm, S1, S2 without murmur. ABDOMEN: Soft, nontender, and nondistended. Positive bowel sounds. No hepatosplenomegaly was noted. EXTREMITIES: Without any cyanosis, clubbing, rash, lesions or edema. NEUROLOGIC: Cranial nerves II through XII are grossly intact. PSYCHIATRIC: Appropriate affect, denies SI/HI, without agitation or anxiety SKIN: No ulceration or induration present. - Assessment and Plan (1) Acute respiratory failure with hypoxemia Current Visit: Yes Status: Acute Assessment and Plan: Diana patient presented with hypoxia with sats in the 80s CTA was completed which was negative for any pulmonary embolism -nonspecific opacity lingua left upper lobe may reflect pneumonitis. Continue with oxygen supplementation currently requiring oxygen mask sats are 95% when OxiMax removed patient's sats dropped down to 83% (2) Aspiration pneumonia Current Visit: Yes Status: Suspected Assessment and Plan: 1. Strict NPO. 2. Consult Speech therapy. 3. Will treat with Levaquin and Flagyl to cover aspiration type dipti. 4. Oxygen and aerosols as necessary. 10/14 Patient has been evaluated per speech therapy recommending soft textured diet with thin liquids medications in applesauce Continue with Levaquin and Flagyl Patient continues to require oxygen supplementation currently on oxygen mask maintaining sats around 95% when oxygen mask is removed patient does drops to as low as 83% (3) Altered mental status Current Visit: Yes Status: Acute Assessment and Plan: 1. I ordered urine toxicity screen given hypersomnolence. 2. Reported history of dementia -- unsure of baseline mental/cognitive state. 3. Need to discuss with family her current level of cognition/mentation. Tox screen was negative I did speak with the family states the patient is normally agitated at times and has confusion-daughter states the patient at times can be physical and strike out. She was recently admitted to geriatric psych in [place] and was discharged approximately a month ago. Daughter states the patient has been compliant with medications however sometimes is difficult for her to take her meds because she is resistant-I suspect her hypersomnolence was secondary to infectious process-she appears much more alert today oriented to name only she is not cooperative during assessment and will not follow commands.-Patient may need possible placement [facility] pediatric social worker has been consulted (4) DVT prophylaxis Current Visit: Yes Status: Acute Assessment and Plan: 1. Heparin SQ. (5) Elevated troponin Current Visit: Yes Status: Acute Assessment and Plan: 1. As above. 2. May need cardiology consult if significant rise in troponin. 3. Suspect demand ischemia from aspiration pneumonia. 10/14 Troponin his flat and adynamic-suspect secondary to demand ischemia from infectious process (6) Chest pain Current Visit: Yes Status: Suspected Assessment and Plan: 1. Unable to validate reports of chest pain. 2. Will cycle troponins and EKG's. 3. Will order ECHO. 10/14 Unable to validate any chest pain due to patient's mental state and uncooperative behavior Troponins have been flat adynamic Echo is pending Continuous cardiac monitoring EKG with no ST-T wave abnormality - Time Spent with Patient Total time spent is greater than 50% in coordination of care (as documented) at patient's floor/unit and/or counseling patient: Internal Medicine: Result - Labs CBC & Chem 7: 10/14/18 01:56 10/14/18 01:56 Labs: Short CBC 10/14/18 Range/Units 01:56 WBC 15.8 H (4.3-11.1) K/mcL Hgb 9.7 L (11.5-15.4) g/dL Hct 31.8 L (35.3-44.9) % Plt Count 287 (140-400) K/mcL Neutrophils # 13.3 H (1.6-8.9) K/mcL BMP 10/14/18 01:56 Sodium 144 Potassium 3.8 Chloride 109 H Carbon Dioxide 26 BUN 29 H Creatinine 0.58 L Glucose 248 H Calcium 9.3 Cardiac Enzymes 10/13/18 Range/Units 13:09 Troponin I 0.04 H* (< 0.04) ng/mL - ABG Interpretation ABG results: PT/INR, D-dimer PT 15.4 Seconds (9.4-12.1) H 10/13/18 05:49 D-Dimer 1414 ng/mLFEU (0-500) H 10/12/18 15:10 - Impressions Impressions Echocardiogram 10/13/18 23:50 Impressions: LVEF 60-65%. Normal LV chamber size and function. Mild asymmetric hypertrophy of the basal septum. Mild left ventricular diastolic dysfunction. Normal right ventricular structure and function. Unable to estimate RVSP due to lack of TR jet. No significant valvular dysfunction. Left Ventricular Wall Motion: Rest Echo Findings All wall segments showed normal motion. Findings: Study Quality * Technically adequate exam. ECG Findings * Sinus arrhythmia. Left Ventricle * LVEF 60-65%. * Normal LV chamber size and function. * Mild asymmetric hypertrophy of the basal septum. * Mild left ventricular diastolic dysfunction. Right Ventricle * Normal right ventricular structure and function. Left Atrium * Normal left atrial size. Right Atrium * Normal right atrial size. Aortic Valve * Aortic valve not well visualized. * No aortic regurgitation. * No aortic stenosis. Mitral Valve * Normal mitral valve structure and function. * No mitral regurgitation. * No mitral stenosis. Tricuspid Valve * Normal tricuspid valve structure and function. * No tricuspid regurgitation. * Unable to estimate RVSP due to lack of TR jet. Pulmonic Valve * Pulmonic valve not well visualized. Aorta * Normally sized aortic root. Pericardium * The pericardium appears normal. IVC * The IVC is not dilated. Pulmonary Artery * Pulmonary artery not well visualized. Consult Discharge Plan - Plan Referrals: NONE,PCP [Primary Care Provider] - (2) Aspiration pneumonia Qualifiers: Aspiration pneumonia type: unspecified Laterality: left Lung location: upper lobe of lung Qualified Code(s): J69.0 - Pneumonitis due to inhalation of food and vomit (3) Altered mental status Qualifiers: Altered mental status type: somnolence Qualified Code(s): R40.0 - Somnolence (6) Chest pain Qualifiers: Chest pain type: unspecified Qualified Code(s): R07.9 - Chest pain, uns pecified
[2018-10-14] MEDS: MethylPREDNISolone 40 MG/ML VIAL IVP SCH (18:03)
[2018-10-14] MEDS ORDERED: Levofloxacin 250 MG/50 ML 250 MG/50 ML BAG IVPB SCH (22:00)
[2018-10-14] MEDS: Levofloxacin 500 MG/100 ML 500 MG/100 ML BAG IVPB SCH (22:55)
[2018-10-15] MEDS: Ipratropium/Albuterol Neb 3 ML IH SCH ×4 (04:10→22:53)
[2018-10-15 04:49] LABS: Hematocrit 32.3 % (35.3-44.9); Hemoglobin 9.8 g/dL (11.5-15.4); Mean Corpuscular HGB Conc 30.3 g/dL (31.6-35.5); Mean Corpuscular Hemoglobin 29.9 pg (28.0-33.3); Mean Corpuscular Volume 98.5 fL (83.0-100.0); Mean Platelet Volume 9.3 fL (9.4-12.4); Nucleated Red Blood Cells 0.4 /100 WBC (0); Platelet Count 262 K/mcL (140-400); Red Blood Count 3.28 M/mcL (3.82-4.97); Red Cell Distribution Width 15.7 % (11.5-14.5)
[2018-10-15 05:03] LABS: BUN/Creatinine Ratio 52 (6-26); Blood Urea Nitrogen 29 mg/dL (8-23); Calcium 9.5 mg/dL (8.6-10.3); Carbon Dioxide 32 mEq/L (23-29); Chloride 108 mEq/L (98-107); Glucose 194 mg/dL (70-105); Osmolality,Calculated 319 (280-300); Potassium 4.1 mEq/L (3.5-5.1); Sodium 149 mEq/L (136-145); eGFR For Non-African Americans > 60 (> 60)
[2018-10-15 05:22] LABS: Monocytes # 1.1 K/mcL (0.0-1.3); Neutrophils # 6.7 K/mcL (1.6-8.9)
[2018-10-15 05:23] LABS: Platelet Estimate Normal (Normal)
[2018-10-15] MEDS: *HR* Heparin 5,000 UNIT/ML VIAL SQ SCH ×2 (05:43→16:31)
[2018-10-15] MEDS: cefTRIAXone 2,000 MG in Water for inj. (sterile) 20 ML 20 ML IVPB SCH (05:43)
[2018-10-15] MEDS: MethylPREDNISolone 40 MG/ML VIAL IVP SCH ×2 (05:43→16:31)
[2018-10-15] MEDS: MetroNIDAZOLE 500 MG/100 ML 500 MG/100 ML BAG IVPB SCH ×3 (09:22→16:31)
[2018-10-15] MEDS ORDERED: Dextrose Gel 15 GM/37.5 ML TUBE PO PRN ×2 (09:28)
[2018-10-15] MEDS ORDERED: D5% in Water 1,000 ML IVC PRN (09:28)
[2018-10-15] MEDS ORDERED: *HR* Dextrose 50 % in Water (Syg) 50 ML SYRINGE IVP PRN (09:28)
--- NOTE | 2018-10-15 09:34 | Internal Med Progress Note ---
Hospitalist Progress Note - Encounter Date of Encounter: 10/15/18 Time of Encounter: 09:34 - Subjective Interval History: Patient was seen and examined at bedside. She is alert and oriented to name only. She continues to be uncooperative and agitated during assessment patient strikes out -speech is gibberish at times. Medrek has been updated which we w ill review and resume medications. Nursing staff reports that they did contact patient's POA girlfriend requesting that power of senior trial attorney To the Hospital [facility] for Review of Treatment Plan and Discussed Discharge Planning. - Exam Vitals: Temp Pulse Resp BP Pulse Ox 98.3 F 79 16 158/67 96 10/15/18 06:55 10/15/18 06:55 10/15/18 06:55 10/15/18 06:55 10/15/18 06:55 Exam: GENERAL: Patient is agitated and uncooperative during exam oriented to name only-cachectic HEENT: Head is normocephalic and atraumatic. Extraocular muscles are intact. Pupils are equal, round, and reactive to light and accommodation. NECK: Supple. No carotid bruits. No lymphadenopathy or thyromegaly. LUNGS: CTA, symmetrical expansion. Respirations easy and unlabored HEART: Regular rate and rhythm, S1, S2 without murmur. ABDOMEN: Soft, nontender, and nondistended. Positive bowel sounds. No hepatosplenomegaly was noted. EXTREMITIES: Without any cyanosis, clubbing, rash, lesions or edema. NEUROLOGIC: Cranial nerves II through XII are grossly intact. PSYCHIATRIC: Appropriate affect, denies SI/HI, without agitation or anxiety SKIN: No ulceration or induration present. - Assessment and Plan (1) Acute respiratory failure with hypoxemia Current Visit: Yes Status: Acute Assessment and Plan: Diana patient presented with hypoxia with sats in the 80s CTA was completed which was negative for any pulmonary embolism -nonspecific opacity lingua left upper lobe may reflect pneumonitis. Continue with oxygen supplementation currently requiring oxygen mask sats are 95% when OxiMax removed patient's sats dropped down to 83% 10/15 Attempted to wean oxygen-placed on 4 L nasal cannula patient's oxygen sat urations dropped down to 85% replaced OxiMax continue to attempt to wean oxygen We will continue with bronchodilators and steroids (2) Aspiration pneumonia Current Visit: Yes Status: Suspected Assessment and Plan: 1. Strict NPO. 2. Consult Speech therapy. 3. Will treat with Levaquin and Flagyl to cover aspiration type dipti. 4. Oxygen and aerosols as necessary. 10/14 Patient has been evaluated per speech therapy recommending soft textured diet with thin liquids medications in applesauce Continue with Levaquin and Flagyl Patient continues to require oxygen supplementation currently on oxygen mask maintaining sats around 95% when oxygen mask is removed patient does drops to as low as 83% 10/15 Evaluated by speech therapy recommending soft textured diet with thin liquids medications in applesauce Continue with Rocephin and Flagyl for aspiration type dipti Oxygen and bronchodilators as needed (3) Altered mental status Current Visit: Yes Status: Acute Assessment and Plan: 1. I ordered urine toxicity screen given hypersomnolence. 2. Reported history of dementia -- unsure of baseline mental/cognitive state. 3. Need to discuss with family her current level of cognition/mentation. Tox screen was negative I did speak with the family states the patient is normally agitated at times and has confusion-daughter states the patient at times can be physical and strike out. She was recently admitted to geriatric psych in [place] and was discharged approximately a month ago. Daughter states the patient has been compliant with medications however sometimes is difficult for her to take her meds because she is resistant-I suspect her hypersomnolence was secondary to infectious process-she appears much more alert today oriented to name only she is not cooperative during assessment and will not follow commands.-Patient may need possible placement [facility] social service liaison has been consulted 10/15 I suspect that patient is at her baseline mentation she does have a history of dementia family states that she is combative and agitated at times social services specialist has been consulted We will resume home medications We will consult psychiatry for behavior as well as home medications (4) DVT prophylaxis Current Visit: Yes Status: Acute Assessment and Plan: 1. Heparin SQ. (5) Elevated troponin Current Visit: Yes Status: Acute Assessment and Plan: 1. As above. 2. May need cardiology consult if significant rise in troponin. 3. Suspect demand ischemia from aspiration pneumonia. 10/14 Troponin his flat and adynamic-suspect secondary to demand ischemia from infectious process 10/15 No chest pain [place] continue to monitor (6) Chest pain Current Visit: Yes Status: Suspected Assessment and Plan: 1. Unable to validate reports of chest pain. 2. Will cycle troponins and EKG's. 3. Will order ECHO. 10/14 Unable to validate any chest pain due to patient's mental state and uncooperative behavior Troponins have been flat adynamic Echo is pending Continuous cardiac monitoring EKG with no ST-T wave abnormality 10/15 No Chest pain voiced Echo EF 6065% normal LV chamber mild asymmetric hypertrophy of the basal septum mild left ventricular diastolic dysfunction no significant valvular dysfunction Cardiac monitoring (7) Dementia with behavioral disturbance Current Visit: No Status: Acute Assessment and Plan: Cording the family patient has a history of dementia she was recently admitted to geriatric psych unit and was discharged approximately a month ago. According to family they have had difficulty with her behavior home. We will resume her home medications I will consult psychiatry to review meds and adjust as needed DVT Prophylaxis: Heparin subcutaneous - Time Spent with Patient Total time spent is greater than 50% in coordination of care (as documented) at patient's floor/unit and/or counseling patient: Internal Medicine: Result - Labs CBC & Chem 7: 10/15/18 04:27 10/15/18 13:39 Labs: Short CBC 10/15/18 Range/Units 04:27 WBC 9.9 (4.3-11.1) K/mcL Hgb 9.8 L (11.5-15.4) g/dL Hct 32.3 L (35.3-44.9) % Plt Count 262 (140-400) K/mcL Neutrophils # 6.7 (1.6-8.9) K/mcL BMP 10/15/18 04:27 Sodium 149 H Potassium 4.1 Chloride 108 H Carbon Dioxide 32 H BUN 29 H Creatinine 0.56 L Glucose 194 H Calcium 9.5 - ABG Interpretation ABG results: PT/INR, D-dimer PT 15.4 Seconds (9.4-12.1) H 10/13/18 05:49 D-Dimer 1414 ng/mLFEU (0-500) H 10/12/18 15:10 Consult Discharge Plan - Plan Referrals: Chuy Lloyd MD [Partnered Physician] - NONE,PCP [Primary Care Provider] - (2) Aspiration pneumonia Qualifiers: Aspiration pneumonia type: unspecified Laterality: left Lung location: upper lobe of lung Qualified Code(s): J69.0 - Pneumonitis due to inhalation of food and vomit (3) Altered mental status Qualifiers: Altered mental status type: somnolence Qualified Code(s): R40.0 - Somnolence (6) Chest pain Qualifiers: Chest pain type: unspecified Qualified Code(s): R07.9 - Chest pain, unspecified (7) Dementia with behavioral disturbance Qualifiers: Dementia type: vascular dementia Qualified Code(s): F01.51 - Vascular dementia with behavioral disturbance
[2018-10-15] MEDS: Insulin LISPRO 300 UNITS/3 ML VIAL SQ SCH ×2 (12:07→18:04)
[2018-10-15 14:13] LABS: BUN/Creatinine Ratio 49 (6-26); Blood Urea Nitrogen 28 mg/dL (8-23); Calcium 9.2 mg/dL (8.6-10.3); Carbon Dioxide 33 mEq/L (23-29); Chloride 101 mEq/L (98-107); Glucose 262 mg/dL (70-105); Osmolality,Calculated 307 (280-300); Potassium 3.8 mEq/L (3.5-5.1); Sodium 141 mEq/L (136-145); eGFR For Non-African Americans > 60 (> 60)
[2018-10-15] MEDS ORDERED: Insulin LISPRO 300 UNITS/3 ML VIAL SQ SCH ×3 (17:53→21:00)
[2018-10-15] MEDS ORDERED: OLANZapine 5 MG TAB.RAPDIS PO SCH (21:00)
--- NOTE | 2018-10-15 22:02 | Electrocardiograph Report ---
[address] [place], [place] [address] Test Date: 2018-10-12 Pat Name: Annie Kline Department: EXAM8 Room: 3B13 Gender: F Slide Maker: : 1940 Requested By: Je Hernandez Order Number: [id number] Reading MD: Diya Devlin Measurements Intervals [place] Rate: 104 P: 81 IN: 163 QRS: 266 QRSD: 83 T: 54 QT: 359 QTc: 473 Interpretive Statements Sinus tachycardia Markedly posterior QRS axis Prolonged QT interval Nonspecific T abnormalities Electronically Signed On 10-15-2018 22:01:11 EST by Diya Devlin
[2018-10-15] MEDS: amLODIPine 5 MG TABLET PO SCH (23:02)
[2018-10-16] MEDS: MetroNIDAZOLE 500 MG/100 ML 500 MG/100 ML BAG IVPB SCH ×2 (00:37→08:40)
[2018-10-16] MEDS: Ipratropium/Albuterol Neb 3 ML IH SCH ×4 (03:31→22:14)
[2018-10-16 03:52] LABS: Hematocrit 30.8 % (35.3-44.9); Hemoglobin 9.9 g/dL (11.5-15.4); Mean Corpuscular HGB Conc 32.1 g/dL (31.6-35.5); Mean Corpuscular Hemoglobin 30.2 pg (28.0-33.3); Mean Corpuscular Volume 93.9 fL (83.0-100.0); Mean Platelet Volume 9.1 fL (9.4-12.4); Nucleated Red Blood Cells 0.3 /100 WBC (0); Platelet Count 221 K/mcL (140-400); Red Blood Count 3.28 M/mcL (3.82-4.97); Red Cell Distribution Width 15.1 % (11.5-14.5)
[2018-10-16 04:11] LABS: BUN/Creatinine Ratio 55 (6-26); Blood Urea Nitrogen 23 mg/dL (8-23); Calcium 9.2 mg/dL (8.6-10.3); Carbon Dioxide 33 mEq/L (23-29); Chloride 97 mEq/L (98-107); Glucose 202 mg/dL (70-105); Osmolality,Calculated 289 (280-300); Potassium 4.1 mEq/L (3.5-5.1); Sodium 135 mEq/L (136-145); eGFR For Non-African Americans > 60 (> 60)
[2018-10-16 04:21] LABS: Lymphocytes # 2.8 K/mcL (0.6-4.6); Monocytes # 0.5 K/mcL (0.0-1.3); Neutrophils # 9.5 K/mcL (1.6-8.9)
[2018-10-16] MEDS: *HR* Heparin 5,000 UNIT/ML VIAL SQ SCH ×2 (05:47→17:12)
[2018-10-16] MEDS: cefTRIAXone 2,000 MG in Water for inj. (sterile) 20 ML 20 ML IVPB SCH (05:47)
[2018-10-16] MEDS: MethylPREDNISolone 40 MG/ML VIAL IVP SCH (05:48)
--- NOTE | 2018-10-16 07:50 | Internal Med Progress Note ---
Hospitalist Progress Note - Encounter Date of Encounter: 10/16/18 Time of Encounter: 07:46 - Subjective Interval History: The patient has Alzheimer dementia and is unable to provide a subjective hx. She was brought in to the ED by family with a CC of dyspnea. Imaging findings concerning for aspiration PNA. Was subsequently treated with aerosols, steroids and ABX (levaquin and flagyl). She is now on nasal cannula and tolerating this morning. She is resting comfortably without distress. Again, as previously noted she is unable to participate in exam d/t mental status. Later this afternoon I will discuss her care with her Son whom is her POA. I will also discuss D/C planning at this time. - Exam Vitals: Temp Pulse Resp BP Pulse Ox 98 F 90 16 169/71 91 10/15/18 23:18 10/15/18 23:18 10/16/18 03:32 10/15/18 23:18 10/16/18 03:32 Exam: GENERAL: Patient is agitated and uncooperative during exam oriented to name only-cachectic HEENT: Head is normocephalic and atraumatic. Extraocular muscles are intact. Pupils are equal, round, and reactive to light and accommodation. NECK: Supple. No carotid bruits. No lymphadenopathy or thyromegaly. LUNGS: CTA, symmetrical expansion. Respirations easy and unlabored HEART: Regular rate and rhythm, S1, S2 without murmur, rubs or gallops. ABDOMEN: Soft, nontender, and nondistended. Positive bowel sounds. No hepatosplenomegaly was noted. EXTREMITIES: Without any cyanosis, clubbing, rash, lesions or edema. NEUROLOGIC: Cranial nerves II through XII are grossly intact. PSYCHIATRIC: Appropriate affect, denies SI/HI, without agitation or anxiety SKIN: No ulceration or induration present. - Assessment and Plan (1) Altered mental status Current Visit: Yes Status: Acute Assessment and Plan: 10/16--Mental status most likely baseline with Alzheimer dementia. She was recently treated in at an inpatient geriatric psych unit in [facility] for the Alzheimer dementia. The family does note that she is normally agitated and confused. Today she is alert to self but is unable to participate in exam. She remains agitated and is borderline aggressive when attempting to perform physi salvador exam. Psych has been consulted by my colleague to assist with adjusting home psych meds. I will await their recommendations. donor services technician is following and assisting with d/c planning. (2) Dementia with behavioral disturbance Current Visit: No Status: Acute (3) Elevated troponin Current Visit: Yes Status: Acute (4) Aspiration pneumonia Current Visit: Yes Status: Suspected Assessment and Plan: Patient presented with hypoxia d/t PNA; suspected aspiration. Imaging reflects possible pneumonistis with nonspecific opacity of the lingua and left upper lobe. Leukocytosis improving, remains afebrile greater than 48 hours, vital stable. Clinically, the patient does appear to be improving. She is currently resting comfortably without any distress. Discuss plan of care with power of commercial attorney this afternoon as well as discharge planning. Continue pureed diet and thin liquids; pills crushed in apple sauce Continue to attempt to wean oxygen as tolerated; she is currently resting comfortably on nasal cannula Continuous aerosols Decrease steroids to once daily and change to oral Continue with a BX Flagyl and Rocephin (5) Acute respiratory failure with hypoxemia Current Visit: Yes Status: Acute (6) Chest pain Current Visit: Yes Status: Suspected Assessment and Plan: 10/16--denies any chest pain today. Troponins were adynamic on 10/13/18. EKG without acute ST-T wave changes concerning for ischemia. Echo EF 6065% normal LV chamber mild asymmetric hypertrophy of the basal septum mild LV DD, no significant valvular dysfunction Continue telemetry DVT Prophylaxis: continue SC Heparin - Time Spent with Patient Total time spent is greater than 50% in coordination of care (as documented) at patient's floor/unit and/or counseling patient: less than 15 minutes Plan of Care Discussed with: patient Internal Medicine: Result - Labs CBC & Chem 7: 10/16/18 03:39 10/16/18 03:39 Labs: Short CBC 10/16/18 Range/Units 03:39 WBC 12.8 H (4.3-11.1) K/mcL Hgb 9.9 L (11.5-15.4) g/dL Hct 30.8 L (35.3-44.9) % Plt Count 221 (140-400) K/mcL Neutrophils # 9.5 H (1.6-8.9) K/mcL BMP 10/15/18 10/16/18 13:39 03:39 Sodium 141 135 L Potassium 3.8 4.1 Chloride 101 97 L Carbon Dioxide 33 H 33 H BUN 28 H 23 Creatinine 0.57 L 0.42 L Glucose 262 H 202 H Calcium 9.2 9.2 - ABG Interpretation ABG results: PT/INR, D-dimer PT 15.4 Seconds (9.4-12.1) H 10/13/18 05:49 D-Dimer 1414 ng/mLFEU (0-500) H 10/12/18 15:10 Consult Discharge Plan - Plan Referrals: Chuy Lloyd MD [Partnered Physician] - (1) Altered mental status Qualifiers: Altered mental status type: somnolence Qualified Code(s): R40.0 - Somnolence (2) Dementia with behavioral disturbance Qualifiers: Dementia type: vascular dementia Qualified Code(s): F01.51 - Vascular dementia with behavioral disturbance (4) Aspiration pneumonia Qualifiers: Aspiration pneumonia type: unspecified Laterality: left Lung location: upper lobe of lung Qualified Code(s): J69.0 - Pneumonitis due to inhalation of food and vomit (6) Chest pain Qualifiers: Chest pain type: unspecified Qualified Code(s): R07.9 - Chest pain, unspecified
[2018-10-16] MEDS: predniSONE 20 MG TABLET PO SCH (08:40)
[2018-10-16] MEDS: Insulin LISPRO 300 UNITS/3 ML VIAL SQ SCH ×4 (08:41→22:22)
[2018-10-16] MEDS: Cholecalciferol (D-3) 1,000 UNIT TABLET PO SCH (08:41)
[2018-10-16] MEDS: Multivit/Ca/Min/Fe/FA 1 TAB TABLET PO SCH (08:41)
[2018-10-16] MEDS ORDERED: OLANZapine 5 MG TAB.RAPDIS PO SCH (09:00)
--- NOTE | 2018-10-16 11:56 | Electrocardiograph Report ---
[address] [place] [address] Test Date: 2018-10-13 Pat Name: Annie Kline Department: 113 Room: 3B13 Gender: F Author'S Agent: : [id number] Requested By: Regis Demarco Order Number: [id number] Reading MD: Triston Camacho Measurements Intervals [place] Rate: 86 P: 71 MN: 189 QRS: -53 QRSD: 82 T: 50 QT: 375 QTc: 418 Interpretive Statements SINUS RHYTHM POSSIBLE RIGHT VENTRICULAR CONDUCTION DELAY LEFT ANTERIOR FASCICULAR BLOCK Electronically Signed On 10-16-2018 11:54:53 EST by Triston Camacho
--- NOTE | 2018-10-16 14:31 | Consult Note ---
Date of Encounter: 10/16/18 Time of Encounter: 13:45 Assessment & Recommendation (1) Altered mental status Current visit: Yes Status: Acute Assessment & Recommendation: Patient admitted with dyspnea and altered mental status. Patient evaluated in past for dementia. ON this admit patient had PNA. Patient also has elevated glucose which may be in part to being on steroids for her PNA. Patient on Olanzapine which increases the risk for PNA in the elderly and is not approved for use for dementia in the elderly. Patient currently on Aricept 5mg. Recommend discontinuing the Olanzapine due to risk factors in the elderly such as PNA, stoke and cardiovascular events. Patient also has an elevated blood sugar which Olanzapine may exacerbate. Recommend increasing the Aricept to 10mg/d and starting Namenda extended release 7mg/d for one wk with titration to a max of 28mg/d over a 4 week period if tolerated. Neither of these drugs will reverse the dementia, but may help with mood and agitation or the behavioral aspects of dementia. Recommend family consider NH or memory care placement. Qualifiers: Altered mental status type: somnolence Qualified Code(s): R40.0 - Somnolence History of Present Illness Requesting Physician: Forest Cardenas MD Reason for consult: dementia, medication managment History of present illness: Ms. Kline is a 78 year old female admitted with dyspnea and confusion. Patient unable to contribute to history secondary to mental status. CC: Forest Cardenas MD Past Med Surg Social Fam HX - Past Medical History Medical history: dementia, hypertension, other - Past Psychiatric History Past psychiatric history details: Admitted in past to [facility] for dementia Family psychiatric history: Unknown Family History of Suicide: Unknown - Past Surgical History Surgical History: hysterectomy - Social History Smoking Status: Current some day smoker Smokeless Tobacco Status: No Alcohol use: none Drug use: none - Family History Sister Living Status: Hx Family Respiratory Disorders: Yes Medications & Allergies Citalopram Hydrobromide [Celexa] 40 mg PO DAILY 02/07/17 [History] Donepezil HCl [Aricept] 5 mg PO HS 02/07/17 [History] Losartan Potassium [Cozaar] 50 mg PO DAILY 02/07/17 [History] Multivitamin [One Daily Essential] 1 tab PO DAILY 04/23/18 [History] ALPRAZolam [Xanax 0.5 MG Tablet] 0.5 mg PO BID PRN 08/07/18 [History] traZODone [TraZODone] 50 mg PO HS PRN 08/07/18 [History] Atorvastatin [Lipitor] 40 mg PO HS tablet 08/09/18 [Rx] Cholecalciferol (D-3) [Vitamin D] 1,000 unit PO DAILY #30 tablet 08/09/18 [Rx] Calcium Carbonate [Children's Soothe] 400 mg PO DAILY 10/14/18 [History] OLANZapine [Zyprexa] 2.5 mg PO QAM 10/14/18 [History] OLANZapine [Zyprexa] 5 mg PO HS 10/14/18 [History] amLODIPine [Norvasc] 5 mg PO HS 10/14/18 [History] Allergy/AdvReac Type Severity Reaction Status Date / Time Histamine H2 Inhibitors Allergy Rash Verified 08/07/18 08:52 Review of Systems ROS unobtainable: due to patient condition Respiratory: Reports: dyspnea Psychiatric: Reports: memory loss, difficulty concentrating Psychiatry Exam - Constitutional Vitals: Temp Pulse Resp BP Pulse Ox 96.8 F L 78 16 113/61 96 10/16/18 12:23 10/16/18 12:23 10/16/18 12:23 10/16/18 12:23 10/16/18 12:23 General appearance: thin - Musculoskeletal Gait: other Station: other Strength & Tone: mild weakness - Psychiatric Patient Orientation: Yes Person Level of alertness: Sedated Behavior: withdrawn Psychomotor activity: Slowed Eye Contact: No Eye Contact Mood Description: Depressed Affect description: flat Speech Volume: Soft/Quiet Speech pattern: limited, impoverished, mumbled Language & Vocabulary: difficulty finding words Thought Process: Slowed Thinking Thought Content: Yes Poverty of Content Perceptual Disturbances: Yes Reacting to internal stimuli Attention Span Ability: Unable to Sustain Attention Memory Description: Grossly Intact, Immediate Impaired, Recent Impaired, Remote Impaired Patient Reliability: Not Reliable Historian Intelligence Estimate: Below Average Judgment: Limited Insight: Minimal Results - Labs Labs: Laboratory Last Values WBC 12.8 K/mcL (4.3-11.1) H 10/16/18 03:39 RBC 3.28 M/mcL (3.82-4.97) L 10/16/18 03:39 Hgb 9.9 g/dL (11.5-15.4) L 10/16/18 03:39 Hct 30.8 % (35.3-44.9) L 10/16/18 03:39 MCV 93.9 fL (83.0-100.0) 10/16/18 03:39 MCH 30.2 pg (28.0-33.3) 10/16/18 03:39 MCHC 32.1 g/dL (31.6-35.5) 10/16/18 03:39 RDW 15.1 % (11.5-14.5) H 10/16/18 03:39 Plt Count 221 K/mcL (140-400) 10/16/18 03:39 MPV 9.1 fL (9.4-12.4) L 10/16/18 03:39 Immature Gran % 3.0 % (0-4) 10/14/18 01:56 Seg Neutrophils % 74.0 % 10/16/18 03:39 Band Neutrophils % 11.0 % (0-4) H 10/15/18 04:27 Lymphocytes % 22.0 % 10/16/18 03:39 Monocytes % 4.0 % 10/16/18 03:39 Eosinophils % 0.3 % 10/14/18 01:56 Basophils % 0.1 % 10/14/18 01:56 Myelocytes % 1.0 % (0) H 10/15/18 04:27 Neutrophils # 9.5 K/mcL (1.6-8.9) H 10/16/18 03:39 Lymphocytes # 2.8 K/mcL (0.6-4.6) 10/16/18 03:39 Monocytes # 0.5 K/mcL (0.0-1.3) 10/16/18 03:39 Eosinophils # 0.0 K/mcL (0.0-0.6) 10/14/18 01:56 Basophils # 0.0 K/mcL (0.0-0.2) 10/14/18 01:56 Nucleated RBCs/100 WBC 0.3 /100 WBC (0) H 10/16/18 03:39 Platelet Estimate Normal (Normal) 10/15/18 04:27 PT 15.4 Seconds (9.4-12.1) H 10/13/18 05:49 INR 1.4 10/13/18 05:49 APTT 28.7 Seconds (26.0-36.0) 10/13/18 05:49 D-Dimer 1414 ng/mLFEU (0-500) H 10/12/18 15:10 Sodium 135 mEq/L (136-145) L 10/16/18 03:39 Potassium 4.1 mEq/L (3.5-5.1) 10/16/18 03:39 Chloride 97 mEq/L (98-107) L 10/16/18 03:39 Carbon Dioxide 33 mEq/L (23-29) H 10/16/18 03:39 BUN 23 mg/dL (8-23) 10/16/18 03:39 Creatinine 0.42 mg/dL (0.60-1.20) L 10/16/18 03:39 Est GFR ( Amer) > 60 (> 60) 10/16/18 03:39 Est GFR (Non-Af Amer) > 60 (> 60) 10/16/18 03:39 BUN/Creatinine Ratio 55 (6-26) H 10/16/18 03:39 Glucose 202 mg/dL (70-105) H 10/16/18 03:39 POC Glucose 161 mg/dL (70-99) H 10/16/18 08:19 Calculated Osmolality 289 (280-300) 10/16/18 03:39 Lactic Acid 1.8 mmol/L (0.5-2.2) 10/12/18 18:54 Calcium 9.2 mg/dL (8.6-10.3) 10/16/18 03:39 Magnesium 2.1 mg/dL (1.6-2.6) 10/13/18 05:49 Total Bilirubin 0.4 mg/dL (0.3-1.0) 10/13/18 05:49 AST 10 Units/L (13-39) L 10/13/18 05:49 ALT 11 Units/L (7-52) 10/13/18 05:49 Alkaline Phosphatase 113 Units/L (34-104) H 10/13/18 05:49 Troponin I 0.04 ng/mL (< 0.04) H* 10/13/18 13:09 B-Natriuretic Peptide 298 pg/mL (Less than 100) H 10/12/18 15:10 Serum Total Protein 6.9 g/dL (6.4-8.9) 10/13/18 05:49 Albumin 3.2 g/dL (3.5-5.7) L 10/13/18 05:49 Globulin 3.7 g/dL (2.4-3.5) H 10/13/18 05:49 Albumin/Globulin Ratio 0.9 (1.1-2.2) L 10/13/18 05:49 Triglycerides 62 mg/dL (< 150) 10/13/18 05:49 Cholesterol 107 mg/dL (< 200) 10/13/18 05:49 LDL Cholesterol, Calc 52 mg/dL (0-99) 10/13/18 05:49 VLDL Cholesterol, Calc 12 mg/dL (< 31) 10/13/18 05:49 HDL Cholesterol 43 mg/dL (40-59) 10/13/18 05:49 Cholesterol/HDL Ratio 2.5 (0-4.9) 10/13/18 05:49 Urine Opiates Screen Negative ng/mL (Jktmpr=866) 10/13/18 01:50 Ur Barbiturates Screen Negative ng/mL (Bmttej=226) 10/13/18 01:50 Ur Phencyclidine Scrn Negative ng/mL (Cutoff=25) 10/13/18 01:50 Ur Amphetamines Screen Negative ng/mL (Staube=7717) 10/13/18 01:50 U Benzodiazepines Scrn Negative ng/mL (Gjootw=034) 10/13/18 01:50 Urine Cocaine Screen Negative ng/mL (Cutoff= 300) 10/13/18 01:50 U Marijuana (THC) Screen Negative ng/mL (Cutoff = 50) 10/13/18 01:50 Ur Drug Screen Interp See Below 10/13/18 01:50 Consult Discharge Plan - Plan Referrals: Chuy Lloyd MD [Partnered Physician] -
[2018-10-16] MEDS: amLODIPine 5 MG TABLET PO SCH (22:23)
[2018-10-17] MEDS: Amoxicillin/Clavulanate 400 MG/5 ML UDC PO SCH ×2 (00:43→20:42)
[2018-10-17] MEDS: Ipratropium/Albuterol Neb 3 ML IH SCH ×4 (04:13→22:13)
--- NOTE | 2018-10-17 05:26 | Event Note ---
Date of Encounter: 10/17/18 Time of Encounter: 04:57 Notified by nurse of patient being found without oxygen mask on and remaining hypoxic after reapplying and turning flow to 15lpm. Assessed patient at bedside, no respiratory distress noted, saturations slowly improved to 94% on 15lpm. Will start weaning flow back down and monitoring closely.
[2018-10-17] MEDS: *HR* Heparin 5,000 UNIT/ML VIAL SQ SCH ×2 (05:44→16:53)
[2018-10-17 09:23] LABS: Hematocrit 36.9 % (35.3-44.9); Hemoglobin 11.6 g/dL (11.5-15.4); Mean Corpuscular HGB Conc 31.4 g/dL (31.6-35.5); Mean Corpuscular Hemoglobin 30.2 pg (28.0-33.3); Mean Corpuscular Volume 96.1 fL (83.0-100.0); Mean Platelet Volume 9.4 fL (9.4-12.4); Platelet Count 223 K/mcL (140-400); Red Blood Count 3.84 M/mcL (3.82-4.97); Red Cell Distribution Width 15.4 % (11.5-14.5)
[2018-10-17] MEDS: Multivit/Ca/Min/Fe/FA 1 TAB TABLET PO SCH (09:29)
[2018-10-17] MEDS: predniSONE 20 MG TABLET PO SCH (09:29)
[2018-10-17] MEDS: Cholecalciferol (D-3) 1,000 UNIT TABLET PO SCH (09:30)
[2018-10-17 09:46] LABS: BUN/Creatinine Ratio 39 (6-26); Blood Urea Nitrogen 22 mg/dL (8-23); Calcium 9.1 mg/dL (8.6-10.3); Carbon Dioxide 33 mEq/L (23-29); Chloride 98 mEq/L (98-107); Glucose 94 mg/dL (70-105); Osmolality,Calculated 289 (280-300); Sodium 138 mEq/L (136-145); eGFR For Non-African Americans > 60 (> 60)
--- NOTE | 2018-10-17 10:06 | Pulmonology Consult Note ---
Addendum entered and electronically signed by Jarek Olivares 10/19/18 08:12: Original Note: <Jarek Olivares - Last Filed: 10/17/18 10:20> Date of Encounter: 10/17/18 Time of Encounter: 10:03 Assessment and Plan (1) Aspiration pneumonia Current Visit: Yes Status: Suspected Pt is unable to provide any history - high risk for aspiration Pt continues to have increased oxygen demands, currently on 92% 8L HFNC Evaluated by speech therapy - pt tolerating mechanically altered textures w/o oral deficits CXR from admission showed atelectasis, mild pulmonary vascular congestion - no focal airspace consolidation CT from 10/12 - opacity lingula CECILIA may reflect pneumonitis Plan: - continue mechanical diet - CXR pending - continue Augmentin PO BID - blood cx pending - check respiratory panel - continue prednisone 40 - continue duonebs - wean oxygen as tolerated , keep O2 sat>88% - follow up with pulmonology as an outpatient in 2-3 wks start symbicort on discharge Qualifiers: Aspiration pneumonia type: unspecified Laterality: left Lung location: upper lobe of lung Qualified Code(s): J69.0 - Pneumonitis due to inhalation of food and vomit (2) Altered mental status Current Visit: Yes Status: Acute Likely secondary to dementia. Qualifiers: Altered mental status type: somnolence Qualified Code(s): R40.0 - Somnolence (3) Acute respiratory failure with hypoxemia Current Visit: Yes Status: Acute See plan as above. - pt has increasing oxygen demand - currently hemodynamically stable, continue to monitor respiratory status (4) Dementia Current Visit: No Status: Chronic Chronic. - borderline aggressive - continue home meds as per primary Qualifiers: Dementia type: vascular dementia Dementia behavioral disturbance: with behavioral disturbance Qualified Code(s): F01.51 - Vascular dementia with behavioral disturbance (5) Suspected chronic obstructive pulmonary disease based on initial evaluation Current Visit: Yes Status: Acute As evidenced on CT scan - follow up with pulmonology outpatient. History of Present Illness Consult date: 10/17/18 Requesting physician: Jamie Calvillo Reason for consult: pneumonia, other (worsening respiratory status) Chief complaint: increasing oxygen needs History of present illness: Ms. Kline is a 78yo female with PMH of HTN and dementia. She came to the hospital on 10/13 with the cc of chest pain by her family. She is unable to give a history to me this morning despite multiple attempts, however, information is gathered from previous notes. She is consulted for suspected aspiration pneumonia. Past Med Surg Social Fam HX - Past Medical History Medical history: dementia, hypertension, other Additional medical history: encephalitis Psychiatric history: anxiety, depression - Past Surgical History Surgical History: hysterectomy - Social History Smoking Status: Current some day smoker Smokeless Tobacco Status: No Alcohol use: none Drug use: none - Family History Sister Living Status: Hx Family Respiratory Disorders: Yes Medications and Allergies Citalopram Hydrobromide [Celexa] 40 mg PO DAILY 02/07/17 [History] Donepezil HCl [Aricept] 5 mg PO HS 02/07/17 [History] Losartan Potassium [Cozaar] 50 mg PO DAILY 02/07/17 [History] Multivitamin [One Daily Essential] 1 tab PO DAILY 04/23/18 [History] ALPRAZolam [Xanax 0.5 MG Tablet] 0.5 mg PO BID PRN 08/07/18 [History] traZODone [TraZODone] 50 mg PO HS PRN 08/07/18 [History] Atorvastatin [Lipitor] 40 mg PO HS tablet 08/09/18 [Rx] Cholecalciferol (D-3) [Vitamin D] 1,000 unit PO DAILY #30 tablet 08/09/18 [Rx] Calcium Carbonate [Children's Soothe] 400 mg PO DAILY 10/14/18 [History] OLANZapine [Zyprexa] 2.5 mg PO QAM 10/14/18 [History] OLANZapine [Zyprexa] 5 mg PO HS 10/14/18 [History] amLODIPine [Norvasc] 5 mg PO HS 10/14/18 [History] Allergy/AdvReac Type Severity Reaction Status Date / Time Histamine H2 Inhibitors Allergy Rash Verified 08/07/18 08:52 ROS unobtainable: due to mental status All Systems: The remainder of the systems were reviewed and are negative Physical Examination Vital Signs: Vital Signs, Last 4 Hours Temp Pulse Resp BP Pulse Ox 10/17/18 06:50 98.6 F 79 19 126/55 92 General appearance: asleep Eyes: nonicteric Effort: normal Auscultation: right: rhonchi, bilateral: diminished breath sounds, wheezes Cardiovascular: regular rate and rhythm Gastrointestinal: soft, non-tender, non-distended Integumentary: normal Extremities: no edema, no clubbing unable to assess due to mental status other (unable to assess) Results - Laboratory Findings CBC and BMP: 10/17/18 09:04 10/17/18 09:04 PT/INR, D-dimer PT 15.4 Seconds (9.4-12.1) H 10/13/18 05:49 D-Dimer 1414 ng/mLFEU (0-500) H 10/12/18 15:10 Abnormal lab findings: Abnormal lab results WBC 14.1 K/mcL (4.3-11.1) H 10/17/18 09:04 MCHC 31.4 g/dL (31.6-35.5) L 10/17/18 09:04 RDW 15.4 % (11.5-14.5) H 10/17/18 09:04 Band Neutrophils % 11.0 % (0-4) H 10/15/18 04:27 Myelocytes % 1.0 % (0) H 10/15/18 04:27 Neutrophils # 9.5 K/mcL (1.6-8.9) H 10/16/18 03:39 Nucleated RBCs/100 WBC 0.3 /100 WBC (0) H 10/16/18 03:39 PT 15.4 Seconds (9.4-12.1) H 10/13/18 05:49 D-Dimer 1414 ng/mLFEU (0-500) H 10/12/18 15:10 Carbon Dioxide 33 mEq/L (23-29) H 10/17/18 09:04 Creatinine 0.56 mg/dL (0.60-1.20) L 10/17/18 09:04 BUN/Creatinine Ratio 39 (6-26) H 10/17/18 09:04 POC Glucose 115 mg/dL (70-99) H 10/16/18 20:49 AST 10 Units/L (13-39) L 10/13/18 05:49 Alkaline Phosphatase 113 Units/L (34-104) H 10/13/18 05:49 Troponin I 0.04 ng/mL (< 0.04) H* 10/13/18 13:09 B-Natriuretic Peptide 298 pg/mL (Less than 100) H 10/12/18 15:10 Albumin 3.2 g/dL (3.5-5.7) L 10/13/18 05:49 Globulin 3.7 g/dL (2.4-3.5) H 10/13/18 05:49 Albumin/Globulin Ratio 0.9 (1.1-2.2) L 10/13/18 05:49 - Clinical Findings Intake & Output: Intake & Output 10/16/18 10/17/18 10/17/18 23:59 07:59 15:59 Intake Total 480 / 480 Balance 480 / 480 Consult Discharge Plan - Plan Referrals: Chuy Lloyd MD [Partnered Physician] - <Leda Murillo - Last Filed: 10/17/18 19:06> Date of Encounter: 10/17/18 All Systems: The remainder of the systems were reviewed and are negative Physical Examination Vital Signs: Vital Signs, Last 4 Hours Resp Pulse Ox 10/17/18 16:11 18 97 Results - Laboratory Findings CBC and BMP: 10/17/18 09:04 10/17/18 09:04 ABG ABG pH 7.52 pH Units (7.32-7.45) H 10/17/18 12:00 ABG pCO2 43 mmHg (35-45) 10/17/18 12:00 ABG pO2 63 mmHg (85-104) L 10/17/18 12:00 ABG O2 Saturation 94 % (95-98) L 10/17/18 12:00 PT/INR, D-dimer PT 15.4 Seconds (9.4-12.1) H 10/13/18 05:49 D-Dimer 1414 ng/mLFEU (0-500) H 10/12/18 15:10 Abnormal lab findings: Abnormal lab results WBC 14.1 K/mcL (4.3-11.1) H 10/17/18 09:04 MCHC 31.4 g/dL (31.6-35.5) L 10/17/18 09:04 RDW 15.4 % (11.5-14.5) H 10/17/18 09:04 Band Neutrophils % 11.0 % (0-4) H 10/15/18 04:27 Myelocytes % 1.0 % (0) H 10/15/18 04:27 Neutrophils # 9.5 K/mcL (1.6-8.9) H 10/16/18 03:39 Nucleated RBCs/100 WBC 0.3 /100 WBC (0) H 10/16/18 03:39 PT 15.4 Seconds (9.4-12.1) H 10/13/18 05:49 D-Dimer 1414 ng/mLFEU (0-500) H 10/12/18 15:10 ABG pH 7.52 pH Units (7.32-7.45) H 10/17/18 12:00 ABG pO2 63 mmHg (85-104) L 10/17/18 12:00 ABG HCO3 35 mEq/L (21-27) H 10/17/18 12:00 ABG Total CO2 37 mEq/L (20-26) H 10/17/18 12:00 ABG O2 Saturation 94 % (95-98) L 10/17/18 12:00 ABG Base Excess 11 mEq/L (-2 to 3) H 10/17/18 12:00 Carbon Dioxide 33 mEq/L (23-29) H 10/17/18 09:04 Creatinine 0.56 mg/dL (0.60-1.20) L 10/17/18 09:04 BUN/Creatinine Ratio 39 (6-26) H 10/17/18 09:04 POC Glucose 348 mg/dL (70-99) H 10/17/18 16:30 AST 10 Units/L (13-39) L 10/13/18 05:49 Alkaline Phosphatase 113 Units/L (34-104) H 10/13/18 05:49 Troponin I 0.04 ng/mL (< 0.04) H* 10/13/18 13:09 B-Natriuretic Peptide 213 pg/mL (Less than 100) H 10/17/18 09:04 Albumin 3.2 g/dL (3.5-5.7) L 10/13/18 05:49 Globulin 3.7 g/dL (2.4-3.5) H 10/13/18 05:49 Albumin/Globulin Ratio 0.9 (1.1-2.2) L 10/13/18 05:49 - Microbiology Findings Microbiology Findings: Microbiology, Last 48 Hours 10/12/18 15:10 Blood Culture - Final Peripheral Venipuncture No growth. Final report. 10/12/18 16:03 Blood Culture - Final Peripheral Venipuncture No growth. Final report. - Clinical Findings Intake & Output: Intake & Output 10/17/18 10/17/18 10/17/18 07:59 15:59 23:59 Intake Total 480 / 480 Balance 480 / 480 - Attending Attestation I saw and evaluated this patient and my medical decision-making was reviewed with the Resident Physician. I agree with the documented findings, disposition and treatment plan as described except to the extent set forth below. We independently had [id number] contact with the patient Patient seen and examined at bedside Labs, radiology, chart personally reviewed. Patient presented with acute hypoxic respiratory failure with CTA showing negative for pulmonary arterial filling defect. Showed some evidence of left-sided pneumonia and this presentation is multifactorial CT chest shows some air trapping suggestive of small airway disease/COPD looks like patient more than aspiration has regurgitant risk because of dilated esophagus could have been the etiology for his aspiration pneumonia to getting an COPD flareups causing V/Q mismatch and top of that the picture is complicated by acute on chronic diastolic heart failure. Will add cefepime and Flagyl will discontinue Augmentin. Continue diuresis. Patient has high risk for decompensation if she aspirated develops worsening hypoxic prior respiratory failure patient might need mechanical ventilation because of her comorbid dementia and other comorbid medical disorders she will a poor prognosis prone ICU stay we will recommend palliative care assessment and input help the family do ascertain goals of care. Patient is a poor candidate for incentive spirometry, FLUTTER valve. Since patient has poor scope of bronchopulmonary pulmonary toileting patient might have a prolonged hospital stay . Agree with rest of the management of primary team.
[2018-10-17 12:02] LABS: ABG Base Excess 11 mEq/L (-2 to 3); ABG HCO3 35 mEq/L (21-27); ABG Oxygen Saturation 94 % (95-98); ABG PCO2 43 mmHg (35-45); ABG PH 7.52 pH Units (7.32-7.45); ABG PO2 63 mmHg (85-104); ABG TCO2 37 mEq/L (20-26)
[2018-10-17] MEDS: Amoxicillin/Clavulanate 200 MG/5 ML UDC PO SCH ×2 (12:04→20:56)
[2018-10-17] MEDS: Insulin LISPRO 300 UNITS/3 ML VIAL SQ SCH ×3 (12:18→20:33)
[2018-10-17] MEDS ORDERED: Furosemide 40 MG/4 ML VIAL IVP SCH (16:45)
[2018-10-17] MEDS: Cefepime HCl 1,000 MG in 0.9 % Sodium Chloride Mini Bag 100 ML IVPB SCH (16:52)
[2018-10-17] MEDS: MetroNIDAZOLE 500 MG/100 ML 500 MG/100 ML BAG IVPB SCH (16:52)
--- NOTE | 2018-10-17 18:08 | Internal Med Progress Note ---
Hospitalist Progress Note - Encounter Date of Encounter: 10/17/18 Time of Encounter: 18:04 - Subjective Interval History: increasing work in breathing overnight requiring increase o2 support. - Exam Vitals: Temp Pulse Resp BP Pulse Ox 97.2 F L 82 18 120/70 97 10/17/18 11:41 10/17/18 14:52 10/17/18 16:11 10/17/18 14:52 10/17/18 16:11 Exam: GENERAL: Patient is agitated and uncooperative during exam oriented to name only-cachectic HEENT: Head is normocephalic and atraumatic. Extraocular muscles are intact. Pupils are equal, round, and reactive to light and accommodation. NECK: Supple. No carotid bruits. No lymphadenopathy or thyromegaly. LUNGS: Clear/diminished, symmetrical expansion, tachypnea and prolonged expiratory phase. HEART: Regular rate and rhythm, S1, S2 without murmur, rubs or gallops. ABDOMEN: Soft, nontender, and nondistended. Positive bowel sounds. No hepatosplenomegaly was noted. EXTREMITIES: Without any cyanosis, clubbing, rash, lesions or edema. NEUROLOGIC: Cranial nerves II through XII are grossly intact. PSYCHIATRIC: Appropriate affect, denies SI/HI, without agitation or anxiety SKIN: No ulceration or induration present. - Assessment and Plan (1) Altered mental status Current Visit: Yes Status: Acute Assessment and Plan: 10/17--Mental status most likely baseline with Alzheimer dementia. She was rec ently treated in at an inpatient geriatric psych unit in [facility] for the Alzheimer dementia. The family does note that she is normally agitated and confused. Continues to be alert to self but is unable to participate in exam. She remains agitated and is borderline aggressive when attempting to perform physical exam. Yesterday I did increase her dose of tenderness spell and I also added Namenda to her medications. I have discontinued olanzapine after discussing her case with psychiatry due to increased risk for aspiration and aspiration pneumonia while using this medication in the elderly population. Recommendations are to DC to a long-term psychiatric facility. (2) Dementia with behavioral disturbance Current Visit: No Status: Acute (3) Elevated troponin Current Visit: Yes Status: Acute (4) Aspiration pneumonia Current Visit: Yes Status: Suspected Assessment and Plan: Patient presented with hypoxia d/t PNA; suspected aspiration. Imaging reflects possible pneumonistis with nonspecific opacity of the lingua and left upper lobe. Clinically, the patient's condition appears to be declining overnight as she is now requiring more respiratory support. I have consulted Pulmonology who recommend CXR, changing ABX regimen to cefepime and flagyl. He does not recommend BIPAP d/t risk with aspiration. Continue respiratory support with Venturi mask Continue pureed diet and thin liquids; pills crushed in apple sauce Continue to attempt to wean oxygen as tolerated; she is currently resting comfortably on nasal cannula Continuous aerosols Continue daily oral steroids Continue with a BX Flagyl and cefepime per recommendations of pulmonology RIP (5) Acute respiratory failure with hypoxemia Current Visit: Yes Status: Acute (6) Chest pain Current Visit: Yes Status: Resolved Assessment and Plan: resolved while she is demented she can answer basic yes or no questions and does not endorse chest pain DVT Prophylaxis: continue SC Heparin - Time Spent with Patient Total time spent is greater than 50% in coordination of care (as documented) at patient's floor/unit and/or counseling patient: less than 15 minutes Plan of Care Discussed with: patient Internal Medicine: Result - Labs CBC & Chem 7: 10/17/18 09:04 10/17/18 09:04 Labs: Short CBC 10/17/18 Range/Units 09:04 WBC 14.1 H (4.3-11.1) K/mcL Hgb 11.6 D (11.5-15.4) g/dL Hct 36.9 (35.3-44.9) % Plt Count 223 (140-400) K/mcL BMP 10/17/18 09:04 Sodium 138 Potassium 4.0 Chloride 98 Carbon Dioxide 33 H BUN 22 Creatinine 0.56 L Glucose 94 Calcium 9.1 - ABG Interpretation ABG results: ABG ABG pH 7.52 pH Units (7.32-7.45) H 10/17/18 12:00 ABG pCO2 43 mmHg (35-45) 10/17/18 12:00 ABG pO2 63 mmHg (85-104) L 10/17/18 12:00 ABG O2 Saturation 94 % (95-98) L 10/17/18 12:00 PT/INR, D-dimer PT 15.4 Seconds (9.4-12.1) H 10/13/18 05:49 D-Dimer 1414 ng/mLFEU (0-500) H 10/12/18 15:10 - Impressions Impressions Chest X-Ray 10/17/18 09:32 IMPRESSION: Left lower lobe atelectasis or infiltrate. D/ / 10/17/2018 17:57:13 Jan[facility] Cotter MD [facility] Inter[facility] Provider: Jani Cotter MD Consult Discharge Plan - Plan Referrals: Chuy Lloyd MD [Partnered Physician] - (1) Altered mental status Qualifiers: Altered mental status type: somnolence Qualified Code(s): R40.0 - Somnolence (2) Dementia with behavioral disturbance Qualifiers: Dementia type: vascular dementia Qualified Code(s): F01.51 - Vascular dementia with behavioral disturbance (4) Aspiration pneumonia Qualifiers: Aspiration pneumonia type: unspecified Laterality: left Lung location: upper lobe of lung Qualified Code(s): J69.0 - Pneumonitis due to inhalation of food and vomit (6) Chest pain Qualifiers: Chest pain type: unspecified Qualified Code(s): R07.9 - Chest pain, unspecified
[2018-10-17] MEDS: amLODIPine 5 MG TABLET PO SCH (20:27)
[2018-10-18] MEDS: MetroNIDAZOLE 500 MG/100 ML 500 MG/100 ML BAG IVPB SCH ×3 (00:10→17:33)
[2018-10-18] MEDS: Cefepime HCl 1,000 MG in 0.9 % Sodium Chloride Mini Bag 100 ML IVPB SCH ×3 (00:11→17:32)
[2018-10-18 01:07] LABS: Adenovirus Not Detected (Not Detect); Bordetella Pertussis Not Detected (Not Detect); Chlamydophila pneumoniae Not Detected (Not Detect); Coronavirus 229E Not Detected (Not Detect); Coronavirus HKU1 Not Detected (Not Detect); Coronavirus NL63 Not Detected (Not Detect); Coronavirus OC43 Not Detected (Not Detect); Human Metapneumovirus Not Detected (Not Detect); Human Rhinovirus/Enterovirus Not Detected (Not Detect); Influenza A Subtype 2009 H1 Not Detected (Not Detect); Influenza A Untypeable Not Detected (Not Detect); Influenza B Not Detected (Not Detect); Mycoplasma pneumoniae Not Detected (Not Detect); Parainfluenza Virus 1 Not Detected (Not Detect); Parainfluenza Virus 2 Not Detected (Not Detect); Parainfluenza Virus 3 Not Detected (Not Detect); Parainfluenza Virus 4 Not Detected (Not Detect); Respiratory Syncytial Virus Not Detected (Not Detect)
[2018-10-18] MEDS: ALPRAZolam 0.5 MG TABLET PO PRN (03:39)
[2018-10-18 04:29] LABS: Hematocrit 34.1 % (35.3-44.9); Hemoglobin 10.8 g/dL (11.5-15.4); Mean Corpuscular HGB Conc 31.7 g/dL (31.6-35.5); Mean Corpuscular Hemoglobin 29.8 pg (28.0-33.3); Mean Corpuscular Volume 93.9 fL (83.0-100.0); Mean Platelet Volume 9.5 fL (9.4-12.4); Platelet Count 229 K/mcL (140-400); Red Blood Count 3.63 M/mcL (3.82-4.97); Red Cell Distribution Width 15.4 % (11.5-14.5)
[2018-10-18] MEDS: Ipratropium/Albuterol Neb 3 ML IH SCH ×4 (04:46→21:56)
[2018-10-18 04:47] LABS: BUN/Creatinine Ratio 40 (6-26); Blood Urea Nitrogen 25 mg/dL (8-23); Calcium 9.4 mg/dL (8.6-10.3); Carbon Dioxide 33 mEq/L (23-29); Chloride 95 mEq/L (98-107); Glucose 138 mg/dL (70-105); Osmolality,Calculated 287 (280-300); Potassium 4.9 mEq/L (3.5-5.1); Sodium 135 mEq/L (136-145); eGFR For Non-African Americans > 60 (> 60)
[2018-10-18] MEDS: *HR* Heparin 5,000 UNIT/ML VIAL SQ SCH ×2 (05:48→17:32)
[2018-10-18] MEDS: Multivit/Ca/Min/Fe/FA 1 TAB TABLET PO SCH (08:09)
[2018-10-18] MEDS: predniSONE 20 MG TABLET PO SCH (08:09)
[2018-10-18] MEDS: Cholecalciferol (D-3) 1,000 UNIT TABLET PO SCH (08:10)
[2018-10-18] MEDS: Insulin LISPRO 300 UNITS/3 ML VIAL SQ SCH ×4 (08:11→20:40)
--- NOTE | 2018-10-18 08:17 | Pulmonology Progress Note ---
Date of Encounter: 10/18/18 Time of Encounter: 08:30 Assessment and Plan (1) Acute respiratory failure with hypoxemia Current Visit: Yes Status: Acute Is multifactorial complicated by acute on chronic diastolic heart failure and pneumonia. For the diastolic heart failure we will recommend continued diuresis as tolerated will leave the diuretic regimen to the primary team. On discharge patient should be followed up in outpatient pulmonology in 6 weeks. Pulmonary we will sign off at this moment please call with questions or if the condition changes. (2) Aspiration pneumonia Current Visit: Yes Status: Suspected Patient with possible aspiration pneumonia to continue broad-spectrum antibiotics patient is improving with bronchodilators and steroids. Is very difficult to do bronchopulmonary hygiene. De-escalate antibiotics based on clinical response. Qualifiers: Aspiration pneumonia type: unspecified Laterality: left Lung location: upper lobe of lung Qualified Code(s): J69.0 - Pneumonitis due to inhalation of food and vomit Subjective Principal diagnosis: acute hypoxic respiratory failure Interval history: 78-year-old female with past medical history significant for dementia presently with acute hypoxic respiratory failure complicated by his diastolic heart failure and pneumonia. Objective PUL Vital signs: Last Vital Signs Temp 98.1 F 10/18/18 06:37 Pulse 67 10/18/18 06:37 Resp 17 10/18/18 06:37 BP 87/44 10/18/18 06:37 Pulse Ox 93 10/18/18 06:37 Effort: mildly labored Auscultation: bilateral: wheezes (scattered wheezes ) Results - Laboratory Findings CBC and BMP: 10/18/18 03:45 10/18/18 03:45 ABG ABG pH 7.52 pH Units (7.32-7.45) H 10/17/18 12:00 ABG pCO2 43 mmHg (35-45) 10/17/18 12:00 ABG pO2 63 mmHg (85-104) L 10/17/18 12:00 ABG O2 Saturation 94 % (95-98) L 10/17/18 12:00 PT/INR, D-dimer PT 15.4 Seconds (9.4-12.1) H 10/13/18 05:49 D-Dimer 1414 ng/mLFEU (0-500) H 10/12/18 15:10 Abnormal lab findings: Abnormal lab results WBC 16.6 K/mcL (4.3-11.1) H 10/18/18 03:45 RBC 3.63 M/mcL (3.82-4.97) L 10/18/18 03:45 Hgb 10.8 g/dL (11.5-15.4) L 10/18/18 03:45 Hct 34.1 % (35.3-44.9) L 10/18/18 03:45 RDW 15.4 % (11.5-14.5) H 10/18/18 03:45 Band Neutrophils % 11.0 % (0-4) H 10/15/18 04:27 Myelocytes % 1.0 % (0) H 10/15/18 04:27 Neutrophils # 9.5 K/mcL (1.6-8.9) H 10/16/18 03:39 Nucleated RBCs/100 WBC 0.3 /100 WBC (0) H 10/16/18 03:39 PT 15.4 Seconds (9.4-12.1) H 10/13/18 05:49 D-Dimer 1414 ng/mLFEU (0-500) H 10/12/18 15:10 ABG pH 7.52 pH Units (7.32-7.45) H 10/17/18 12:00 ABG pO2 63 mmHg (85-104) L 10/17/18 12:00 ABG HCO3 35 mEq/L (21-27) H 10/17/18 12:00 ABG Total CO2 37 mEq/L (20-26) H 10/17/18 12:00 ABG O2 Saturation 94 % (95-98) L 10/17/18 12:00 ABG Base Excess 11 mEq/L (-2 to 3) H 10/17/18 12:00 Sodium 135 mEq/L (136-145) L 10/18/18 03:45 Chloride 95 mEq/L (98-107) L 10/18/18 03:45 Carbon Dioxide 33 mEq/L (23-29) H 10/18/18 03:45 BUN 25 mg/dL (8-23) H 10/18/18 03:45 BUN/Creatinine Ratio 40 (6-26) H 10/18/18 03:45 Glucose 138 mg/dL (70-105) H 10/18/18 03:45 POC Glucose 254 mg/dL (70-99) H 10/17/18 20:34 AST 10 Units/L (13-39) L 10/13/18 05:49 Alkaline Phosphatase 113 Units/L (34-104) H 10/13/18 05:49 Troponin I 0.04 ng/mL (< 0.04) H* 10/13/18 13:09 B-Natriuretic Peptide 213 pg/mL (Less than 100) H 10/17/18 09:04 Albumin 3.2 g/dL (3.5-5.7) L 10/13/18 05:49 Globulin 3.7 g/dL (2.4-3.5) H 10/13/18 05:49 Albumin/Globulin Ratio 0.9 (1.1-2.2) L 10/13/18 05:49 - Microbiology Findings Microbiology Findings: Microbiology, Last 48 Hours 10/12/18 15:10 Blood Culture - Final Peripheral Venipuncture No growth. Final report. 10/12/18 16:03 Blood Culture - Final Peripheral Venipuncture No growth. Final report. - Clinical Findings Intake & Output: Intake & Output 10/17/18 10/18/18 10/18/18 23:59 07:59 15:59 Intake Total 620 / 620 200 / 200 Balance 620 / 620 200 / 200 Weight 58.5 kg Consult Discharge Plan - Plan Referrals: Chuy Lloyd MD [Partnered Physician] -
--- NOTE | 2018-10-18 08:42 | Internal Med Progress Note ---
Hospitalist Progress Note - Encounter Date of Encounter: 10/18/18 Time of Encounter: 08:40 - Subjective Interval History: Clinically, she has improved over night. She is now on 4.5L oxy-mask and resting comfortably without distress. H/o dementia, unable to participate in exam. She is able to answer yes or no to basic question however, this too is limited. - Exam Vitals: Temp Pulse Resp BP Pulse Ox 98.1 F 67 17 87/44 93 10/18/18 06:37 10/18/18 06:37 10/18/18 06:37 10/18/18 06:37 10/18/18 06:37 Exam: GENERAL: Patient is agitated and uncooperative during exam oriented to name only-cachectic HEENT: Head is normocephalic and atraumatic. Extraocular muscles are intact. Pupils are equal, round, and reactive to light and accommodation. NECK: Supple. No carotid bruits. No lymphadenopathy or thyromegaly. LUNGS: Clear/diminished AP&L, symmetrical expansion, tachypnea and prolonged expiratory phase. HEART: Regular rate and rhythm, S1, S2 without murmur, rubs or gallops. ABDOMEN: Soft, nontender, and nondistended. Positive bowel sounds. No hepatosplenomegaly was noted. EXTREMITIES: Without any cyanosis, clubbing, rash, lesions or edema. NEUROLOGIC: Cranial nerves II through XII are grossly intact. PSYCHIATRIC: Appropriate affect, denies SI/HI, without agitation or anxiety SKIN: No ulceration or induration present. - Assessment and Plan (1) Altered mental status Current Visit: Yes Status: Acute Assessment and Plan: 10/17--Mental status most likely baseline with Alzheimer dementia. She was recently treated in at an inpatient geriatric psych unit in [facility] for the Alzheimer dementia. The family does note that she is normally agitated and confused. Continues to be alert to self but is unable to participate in exam. Agitation is improving with the addition of Namenda and increase in Donepizil. Zyprexa has been d/c d/t risks for aspiration. Recommendations are to DC WMP when patient clinically stable. She is not chronically on O2 and thus will need to weaned to room air prior to d/c or qualified for short-term O2. (2) Dementia with behavioral disturbance Current Visit: No Status: Acute (3) Elevated troponin Current Visit: Yes Status: Acute (4) Aspiration pneumonia Current Visit: Yes Status: Suspected Assessment and Plan: Patient presented with hypoxia d/t PNA; suspected aspiration. Imaging reflects possible pneumonistis with nonspecific opacity of the lingua and left upper lobe. 10/18--Clinically, she has improved overnight and has decreased O2 requirements. Continue to wean O2 as anila. Continue with Cefepime and Flagyl. Once agian thank you to pulmonology for assistance with management. She is currently resting comfortably without distress. Continue pureed diet and thin liquids; pills crushed in apple sauce Continue to attempt to wean oxygen as tolerated; she is currently resting comfortably on oxy-mask Continuous aerosols Continue daily oral steroids Continue with ABX Flagyl and cefepime per recommendations of pulmonology RIP negative WBC elevated at 16; patient also on steroids which is most likely cause for continued elevation repeat CXR with atelectasis versus LLL infiltrate; per my review appears to be atelectasis (5) Acute respiratory failure with hypoxemia Current Visit: Yes Status: Acute Assessment and Plan: as above (6) Chest pain Current Visit: Yes Status: Resolved Assessment and Plan: resolved while she is demented she can answer basic yes or no questions and does not endorse chest pain DVT Prophylaxis: continue SC Heparin - Time Spent with Patient Total time spent is greater than 50% in coordination of care (as documented) at patient's floor/unit and/or counseling patient: less than 15 minutes Plan of Care Discussed with: patient Internal Medicine: Result - Labs CBC & Chem 7: 10/18/18 03:45 10/18/18 03:45 Labs: Short CBC 10/17/18 10/18/18 Range/Units 09:04 03:45 WBC 14.1 H 16.6 H (4.3-11.1) K/mcL Hgb 11.6 D 10.8 L (11.5-15.4) g/dL Hct 36.9 34.1 L (35.3-44.9) % Plt Count 223 229 (140-400) K/mcL BMP 10/17/18 10/18/18 09:04 03:45 Sodium 138 135 L Potassium 4.0 4.9 Chloride 98 95 L Carbon Dioxide 33 H 33 H BUN 22 25 H Creatinine 0.56 L 0.62 Glucose 94 138 H Calcium 9.1 9.4 - ABG Interpretation ABG results: ABG ABG pH 7.52 pH Units (7.32-7.45) H 10/17/18 12:00 ABG pCO2 43 mmHg (35-45) 10/17/18 12:00 ABG pO2 63 mmHg (85-104) L 10/17/18 12:00 ABG O2 Saturation 94 % (95-98) L 10/17/18 12:00 PT/INR, D-dimer PT 15.4 Seconds (9.4-12.1) H 10/13/18 05:49 D-Dimer 1414 ng/mLFEU (0-500) H 10/12/18 15:10 - Impressions Impressions Chest X-Ray 10/17/18 09:32 IMPRESSION: Left lower lobe atelectasis or infiltrate. D/ / 10/17/2018 17:57:13 Jani Cotter MD / [facility]beth Interpreting Provider: Jani Cotter MD Consult Discharge Plan - Plan Referrals: Chuy Lloyd MD [Partnered Physician] - (1) Altered mental status Qualifiers: Altered mental status type: somnolence Qualified Code(s): R40.0 - Somnolence (2) Dementia with behavioral disturbance Qualifiers: Dementia type: vascular dementia Qualified Code(s): F01.51 - Vascular dementia with behavioral disturbance (4) Aspiration pneumonia Qualifiers: Aspiration pneumonia type: unspecified Laterality: left Lung location: upper lobe of lung Qualified Code(s): J69.0 - Pneumonitis due to inhalation of food and vomit (6) Chest pain Qualifiers: Chest pain type: unspecified Qualified Code(s): R07.9 - Chest pain, unspecified
[2018-10-18] MEDS ORDERED: Furosemide 40 MG/4 ML VIAL IVP SCH (09:00)
--- NOTE | 2018-10-19 00:18 | Event Note ---
Date of Encounter: 10/18/18 Time of Encounter: 23:50 Notified by nurse of patient oxygen saturations dropping to high 70s - low 80s. Assessed patient at bedside, denies shortness of breath, currently in no respiratory distress. Increased oxygen from nasal canula to mask at 10 lpm and saturation increased to 90%. Vitals otherwise remain stable. Will order chest xray.
[2018-10-19] MEDS: MetroNIDAZOLE 500 MG/100 ML 500 MG/100 ML BAG IVPB SCH ×3 (00:57→17:17)
[2018-10-19] MEDS: Cefepime HCl 1,000 MG in 0.9 % Sodium Chloride Mini Bag 100 ML IVPB SCH ×3 (00:58→17:15)
[2018-10-19] MEDS: Ipratropium/Albuterol Neb 3 ML IH SCH ×2 (03:54→10:36)
[2018-10-19 05:04] LABS: Basophils # 0.1 K/mcL (0.0-0.2); Basophils % 0.4 %; Eosinophils % 0.2 %; Hematocrit 33.9 % (35.3-44.9); Hemoglobin 10.6 g/dL (11.5-15.4); Immature Granulocytes % 7.8 % (0-4); Lymphocytes # 3.6 K/mcL (0.6-4.6); Lymphocytes % 19.3 %; Mean Corpuscular HGB Conc 31.3 g/dL (31.6-35.5); Mean Platelet Volume 9.6 fL (9.4-12.4); Monocytes # 2.2 K/mcL (0.0-1.3); Monocytes % 11.8 %; Neutrophils # 11.3 K/mcL (1.6-8.9); Platelet Count 227 K/mcL (140-400); Red Blood Count 3.53 M/mcL (3.82-4.97); Red Cell Distribution Width 15.6 % (11.5-14.5); Segmented Neutrophils % 60.5 %
[2018-10-19] MEDS: *HR* Heparin 5,000 UNIT/ML VIAL SQ SCH ×2 (05:12→18:27)
[2018-10-19 05:21] LABS: BUN/Creatinine Ratio 48 (6-26); Blood Urea Nitrogen 29 mg/dL (8-23); Carbon Dioxide 29 mEq/L (23-29); Chloride 99 mEq/L (98-107); Glucose 109 mg/dL (70-105); Osmolality,Calculated 288 (280-300); Potassium 4.6 mEq/L (3.5-5.1); Sodium 136 mEq/L (136-145); eGFR For Non-African Americans > 60 (> 60)
[2018-10-19 06:11] LABS: Platelet Estimate Normal (Normal)
[2018-10-19] MEDS: predniSONE 20 MG TABLET PO SCH (07:24)
[2018-10-19] MEDS: Multivit/Ca/Min/Fe/FA 1 TAB TABLET PO SCH (07:24)
[2018-10-19] MEDS: Cholecalciferol (D-3) 1,000 UNIT TABLET PO SCH (07:24)
[2018-10-19] MEDS: Insulin LISPRO 300 UNITS/3 ML VIAL SQ SCH ×4 (07:25→20:12)
[2018-10-19] MEDS ORDERED: Ipratropium/Albuterol Neb 3 ML IH PRN (11:21)
--- NOTE | 2018-10-19 14:04 | Internal Med Progress Note ---
Hospitalist Progress Note - Encounter Date of Encounter: 10/19/18 Time of Encounter: 14:01 - Subjective Interval History: Denies any respiratory distress at this time, however, she is still requiring 5L via oxy-mask for respiratory support. Overnight she developed hyoxia with SPO2 in the 70'80's temporarily requiring 10L HF NC. Repeat CXR showed persistend B/L heterogeneous opacities with Lt basilar consolidation. - Exam Vitals: Temp Pulse Resp BP Pulse Ox 98.2 F 83 16 103/56 91 10/19/18 11:46 10/19/18 11:46 10/19/18 11:46 10/19/18 11:46 10/19/18 11:46 Exam: GENERAL: Patient is agitated and uncooperative during exam oriented to name only-cachectic HEENT: Head is normocephalic and atraumatic. Extraocular muscles are intact. Pupils are equal, round, and reactive to light and accommodation. NECK: Supple. No carotid bruits. No lymphadenopathy or thyromegaly. LUNGS: Rhonchi ausculated throughout AP&L, symmetrical expansion, tachypnea and prolonged expiratory phase. HEART: Regular rate and rhythm, S1, S2 without murmur, rubs or gallops. ABDOMEN: Soft, nontender, and nondistended. Positive bowel sounds. No hepatosplenomegaly was noted. EXTREMITIES: Without any cyanosis, clubbing, rash, lesions or edema. NEUROLOGIC: Cranial nerves II through XII are grossly intact. PSYCHIATRIC: Appropriate affect, denies SI/HI, without agitation or anxiety SKIN: No ulceration or induration present. - Assessment and Plan (1) Aspiration pneumonia Current Visit: Yes Status: Suspected Assessment and Plan: Patient presented with hypoxia d/t PNA; suspected aspiration. Imaging reflects possible pneumonistis with nonspecific opacity of the lingua and left upper lobe. 10/19--Clinically, patient appears to have improved per my assessment this morning. She alert and oriented to self and place and she is without respiratory distress at this time. She is resting comfortably on 5 L oxygen mask. Overnight she was noted to have had an event of hypoxia with SPO2 falling to the high 70s and 80s. At this time she required 10 L high flow nasal cannula. Respiratory support however she is now on 5 L oxygen mask and 96%. Chest x-ray did show persistent bilateral heterogenous opacities with left basilar consolidation. Given that she has not improved much clinically and her continued episodes of hypoxia overnight I will order modified. Swallow for further evaluation. Continue to wean O2 as anila. Continue with Cefepime and Fla gyl, given her recurrent hypoxia and waxing waning status I do not believe it is appropriate for de-escalation of antibiotic therapy at this time. Once again thank you to pulmonology for assistance with management. She is currently resting comfortably without distress. Continue pureed diet and thin liquids; pills crushed in apple sauce Continue to attempt to wean oxygen as tolerated; she is currently resting comfortably on oxy-mask Continuous aerosols Continue daily oral steroids Continue with ABX Flagyl and cefepime per recommendations of pulmonology RIP negative WBC elevated at 18 Patient will need outpatient follow-up with pulmonology within 6 weeks of discharge (2) Altered mental status Current Visit: Yes Status: Acute Assessment and Plan: 10/19--presented with AMS however, patient has baseline Alzheimer dementia. Appears to be returning to baseline today. She is oriented to self as well as place. [facility] (3) Dementia with behavioral disturbance Current Visit: No Status: Acute Assessment and Plan: Behavioral disturbances have improved since increasing dose of donepezil and adding Namenda. (4) Elevated troponin Current Visit: Yes Status: Acute (5) Acute respiratory failure with hypoxemia Current Visit: Yes Status: Acute Assessment and Plan: as above (6) Chest pain Current Visit: Yes Status: Resolved DVT Prophylaxis: SC Heparin - Time Spent with Patient Total time spent is greater than 50% in coordination of care (as documented) at patient's floor/unit and/or counseling patient: less than 15 minutes Plan of Care Discussed with: patient Internal Medicine: Result - Labs CBC & Chem 7: 10/19/18 04:12 10/19/18 04:12 Labs: Short CBC 10/19/18 Range/Units 04:12 WBC 18.7 H (4.3-11.1) K/mcL Hgb 10.6 L (11.5-15.4) g/dL Hct 33.9 L (35.3-44.9) % Plt Count 227 (140-400) K/mcL Neutrophils # 11.3 H (1.6-8.9) K/mcL BMP 10/19/18 04:12 Sodium 136 Potassium 4.6 Chloride 99 Carbon Dioxide 29 BUN 29 H Creatinine 0.60 Glucose 109 H Calcium 9.0 - ABG Interpretation ABG results: ABG ABG pH 7.52 pH Units (7.32-7.45) H 10/17/18 12:00 ABG pCO2 43 mmHg (35-45) 10/17/18 12:00 ABG pO2 63 mmHg (85-104) L 10/17/18 12:00 ABG O2 Saturation 94 % (95-98) L 10/17/18 12:00 PT/INR, D-dimer PT 15.4 Seconds (9.4-12.1) H 10/13/18 05:49 D-Dimer 1414 ng/mLFEU (0-500) H 10/12/18 15:10 - Impressions Impressions Chest X-Ray 10/19/18 00:15 IMPRESSION: Persistent bilateral heterogeneous opacities with left basilar consolidation. Continued attention on follow-up recommended. D/ / Jarek Shepherd / Jarek Shepherd Interpreting Provider: Jarek Shepherd Consult Discharge Plan - Plan Referrals: Chuy Lloyd MD [Partnered Physician] - _ (1) Aspiration pneumonia Qualifiers: Aspiration pneumonia type: unspecified Laterality: left Lung location: upper lobe of lung Qualified Code(s): J69.0 - Pneumonitis due to inhalation of food and vomit (2) Altered mental status Qualifiers: Altered mental status type: somnolence Qualified Code(s): R40.0 - Somnolence (3) Dementia with behavioral disturbance Qualifiers: Dementia type: vascular dementia Qualified Code(s): F01.51 - Vascular dementia with behavioral disturbance (6) Chest pain Qualifiers: Chest pain type: unspecified Qualified Code(s): R07.9 - Chest pain, unspecified
[2018-10-20] MEDS: MetroNIDAZOLE 500 MG/100 ML 500 MG/100 ML BAG IVPB SCH ×3 (01:46→15:52)
[2018-10-20] MEDS: Cefepime HCl 1,000 MG in 0.9 % Sodium Chloride Mini Bag 100 ML IVPB SCH ×3 (01:46→15:50)
[2018-10-20 03:27] LABS: Hematocrit 33.1 % (35.3-44.9); Hemoglobin 10.4 g/dL (11.5-15.4); Mean Corpuscular HGB Conc 31.4 g/dL (31.6-35.5); Mean Corpuscular Hemoglobin 30.1 pg (28.0-33.3); Mean Corpuscular Volume 95.7 fL (83.0-100.0); Mean Platelet Volume 9.9 fL (9.4-12.4); Platelet Count 217 K/mcL (140-400); Red Blood Count 3.46 M/mcL (3.82-4.97); Red Cell Distribution Width 15.9 % (11.5-14.5)
[2018-10-20 03:50] LABS: BUN/Creatinine Ratio 46 (6-26); Blood Urea Nitrogen 29 mg/dL (8-23); Calcium 9.3 mg/dL (8.6-10.3); Carbon Dioxide 30 mEq/L (23-29); Chloride 99 mEq/L (98-107); Glucose 122 mg/dL (70-105); Osmolality,Calculated 287 (280-300); Potassium 5.2 mEq/L (3.5-5.1); Sodium 135 mEq/L (136-145); eGFR For Non-African Americans > 60 (> 60)
[2018-10-20 03:59] LABS: Lymphocytes # 3.1 K/mcL (0.6-4.6); Monocytes # 5.3 K/mcL (0.0-1.3); Neutrophils # 12.8 K/mcL (1.6-8.9); Platelet Estimate Normal (Normal)
[2018-10-20] MEDS: *HR* Heparin 5,000 UNIT/ML VIAL SQ SCH ×2 (05:40→16:32)
[2018-10-20] MEDS: Insulin LISPRO 300 UNITS/3 ML VIAL SQ SCH ×4 (07:16→20:06)
[2018-10-20] MEDS: Multivit/Ca/Min/Fe/FA 1 TAB TABLET PO SCH (08:11)
[2018-10-20] MEDS: Cholecalciferol (D-3) 1,000 UNIT TABLET PO SCH (08:11)
[2018-10-20] MEDS: predniSONE 20 MG TABLET PO SCH (08:11)
[2018-10-20] MEDS: ALPRAZolam 0.5 MG TABLET PO PRN (08:22)
--- NOTE | 2018-10-20 09:31 | Internal Med Progress Note ---
Hospitalist Progress Note - Encounter Date of Encounter: 10/20/18 Time of Encounter: 09:21 - Subjective Interval History: He was altered mental status and pneumonia. Continues to require high flow nasal oxygen mask for respiratory support. She does not appear grossly short of breath however and is resting comfortably at this time. - Exam Vitals: Temp Pulse Resp BP Pulse Ox 97.5 F L 79 16 111/57 92 10/20/18 07:00 10/20/18 07:00 10/20/18 07:00 10/20/18 07:00 10/20/18 07:00 Exam: GENERAL: Patient is agitated and uncooperative during exam oriented to name only-cachectic HEENT: Head is normocephalic and atraumatic. Extraocular muscles are intact. Pupils are equal, round, and reactive to light and accommodation. NECK: Supple. No carotid bruits. No lymphadenopathy or thyromegaly. LUNGS: Rhonchi ausculated throughout AP&L, symmetrical expansion, tachypnea HEART: Regular rate and rhythm, S1, S2 without murmur, rubs or gallops. ABDOMEN: Soft, nontender, and nondistended. Positive bowel sounds. No hepatosplenomegaly was noted. EXTREMITIES: Without any cyanosis, clubbing, rash, lesions or edema. NEUROLOGIC: Cranial nerves II through XII are grossly intact. PSYCHIATRIC: agitated SKIN: No ulceration or induration present. - Assessment and Plan (1) Aspiration pneumonia Current Visit: Yes Status: Suspected Assessment and Plan: Patient presented with hypoxia d/t PNA; suspected aspiration. Imaging reflects possible pneumonistis with nonspecific opacity of the lingua and left upper lobe. 10/20--Clinically, patient appears to have improved per my assessment this morning. {er may assessmetn this morning she is alert and oriented to self and is without respiratory distress. At this time she is on 8L oxy-mask. Staff reporting that she removes her mask throughout the night and becomes hypoxic requiring the need to increase O2 flow-rate. Attempt to wean O2 today. MBS completed yesterday with concerns for aspiration; normal exam. CXR showing persistent PNA, given high flow rate of O2 required for respiratory support she is being transferred to a unit with a higher level of acuity. Patient's WBC increasing overnight. Should be noted that she is on steroids however did not believe that this is accounting for the continued increase in WBC. Blood cultures obtained and were found to be no growth to date. I will obtain a UA for further evaluation for additional sources of infection. She was finally able to produce sputum and this will be sent for culture. Continue to treat with antibiotics as discussed with pulmonology. Continue pureed diet and thin liquids; pills crushed in apple sauce Continue to attempt to wean oxygen as tolerated; she is currently resting comfortably on oxy-mask Continuous aerosols Continue daily oral steroids Continue with ABX Flagyl and cefepime per recommendations of pulmonology RIP negative WBC elevated at 18 Patient will need outpatient follow-up with pulmonology within 6 weeks of discharge (2) Altered mental status Current Visit: Yes Status: Acute (3) Dementia with behavioral disturbance Current Visit: No Status: Acute (4) Elevated troponin Current Visit: Yes Status: Acute (5) Acute respiratory failure with hypoxemia Current Visit: Yes Status: Acute (6) Chest pain Current Visit: Yes Status: Resolved DVT Prophylaxis: SC Heparin - Time Spent with Patient Total time spent is greater than 50% in coordination of care (as documented) at patient's floor/unit and/or counseling patient: less than 15 minutes Plan of Care Discussed with: patient Internal Medicine: Result - Labs CBC & Chem 7: 10/20/18 03:08 10/20/18 03:08 Labs: Short CBC 10/20/18 Range/Units 03:08 WBC 22.0 H (4.3-11.1) K/mcL Hgb 10.4 L (11.5-15.4) g/dL Hct 33.1 L (35.3-44.9) % Plt Count 217 (140-400) K/mcL Neutrophils # 12.8 H (1.6-8.9) K/mcL BMP 10/20/18 03:08 Sodium 135 L Potassium 5.2 H Chloride 99 Carbon Dioxide 30 H BUN 29 H Creatinine 0.63 Glucose 122 H Calcium 9.3 - ABG Interpretation ABG results: ABG ABG pH 7.52 pH Units (7.32-7.45) H 10/17/18 12:00 ABG pCO2 43 mmHg (35-45) 10/17/18 12:00 ABG pO2 63 mmHg (85-104) L 10/17/18 12:00 ABG O2 Saturation 94 % (95-98) L 10/17/18 12:00 PT/INR, D-dimer PT 15.4 Seconds (9.4-12.1) H 10/13/18 05:49 D-Dimer 1414 ng/mLFEU (0-500) H 10/12/18 15:10 - Impressions Impressions Chest X-Ray 10/17/18 09:32 IMPRESSION: Left lower lobe atelectasis or infiltrate. D/ / 10/17/2018 17:57:13 Jani Cotter MD / lisbeth Interpreting Provider: Jani Cotter MD Videofluoroscopic Swallow 10/19/18 13:15 IMPRESSION: No penetration or aspiration was seen with the various consistencies used. Please see separate speech pathology report for full discussion of findings and recommendations. D/ / Aldo White MD / Aldo White MD Interpreting Provider: Aldo White MD Consult Discharge Plan - Plan Referrals: Chuy Lloyd MD [Partnered Physician] - (1) Aspiration pneumonia Qualifiers: Aspiration pneumonia type: unspecified Laterality: left Lung location: upper lobe of lung Qualified Code(s): J69.0 - Pneumonitis due to inhalation of food and vomit (2) Altered mental status Qualifiers: Altered mental status type: somnolence Qualified Code(s): R40.0 - Somnolence (3) Dementia with behavioral disturbance Qualifiers: Dementia type: vascular dementia Qualified Code(s): F01.51 - Vascular dementia with behavioral disturbance (6) Chest pain Qualifiers: Chest pain type: unspecified Qualified Code(s): R07.9 - Chest pain, unspecified
[2018-10-20 11:26] LABS: Bilirubin,Urine Negative (Negative); Blood,Urine Negative (Negative); Clarity,Urine Clear (Clear); Color,Urine Yellow (Yellow); Glucose,Urine (UA) Normal (Normal); Ketones,Urine Negative (Negative); Leukocyte Esterase,Urine Negative (Negative); Nitrite,Urine Negative (Negative); Protein,Urine Negative (Neg-Trace); Urobilinogen,Urine Normal (Normal)
[2018-10-20] MEDS ORDERED: Naloxone 0.4 MG/ML INJ IVP PRN (11:57)
[2018-10-20] MEDS: Insulin DETEMIR 100 UNIT/ML X5UNITS SQ SCH ×2 (13:07→20:06)
[2018-10-21] MEDS: ALPRAZolam 0.5 MG TABLET PO PRN (03:35)
[2018-10-21 04:38] LABS: Hematocrit 32.1 % (35.3-44.9); Hemoglobin 10.1 g/dL (11.5-15.4); Mean Corpuscular HGB Conc 31.5 g/dL (31.6-35.5); Mean Corpuscular Hemoglobin 30.4 pg (28.0-33.3); Mean Corpuscular Volume 96.7 fL (83.0-100.0); Mean Platelet Volume 10.2 fL (9.4-12.4); Platelet Count 193 K/mcL (140-400); Red Blood Count 3.32 M/mcL (3.82-4.97); Red Cell Distribution Width 15.9 % (11.5-14.5)
[2018-10-21 05:33] LABS: Lymphocytes # 3.7 K/mcL (0.6-4.6); Monocytes # 2.5 K/mcL (0.0-1.3); Neutrophils # 14.3 K/mcL (1.6-8.9)
[2018-10-21 05:34] LABS: Platelet Estimate Normal (Normal)
[2018-10-21 05:35] LABS: Anisocytosis 1+ (Not Present)
[2018-10-21] MEDS: *HR* Heparin 5,000 UNIT/ML VIAL SQ SCH ×2 (05:46→18:19)
[2018-10-21] MEDS: Cholecalciferol (D-3) 1,000 UNIT TABLET PO SCH (11:16)
[2018-10-21] MEDS: Multivit/Ca/Min/Fe/FA 1 TAB TABLET PO SCH (11:16)
[2018-10-21] MEDS: predniSONE 20 MG TABLET PO SCH (11:16)
[2018-10-21] MEDS: Cefepime HCl 1,000 MG in 0.9 % Sodium Chloride Mini Bag 100 ML IVPB SCH ×3 (11:16→18:17)
[2018-10-21] MEDS: Insulin DETEMIR 100 UNIT/ML X5UNITS SQ SCH ×2 (11:18→20:29)
[2018-10-21] MEDS: Insulin LISPRO 300 UNITS/3 ML VIAL SQ SCH ×4 (11:18→20:26)
[2018-10-21] MEDS: MetroNIDAZOLE 500 MG/100 ML 500 MG/100 ML BAG IVPB SCH ×3 (12:10→18:18)
--- NOTE | 2018-10-21 12:46 | Internal Med Progress Note ---
Hospitalist Progress Note - Encounter Date of Encounter: 10/21/18 Time of Encounter: 12:44 - Subjective Interval History: He was altered mental status and pneumonia. Improving from a respiratory perspective. Now on 4 L oxygen mask. She appears to be without distress. - Exam Vitals: Temp Pulse Resp BP Pulse Ox 97.3 F L 67 16 116/63 95 10/21/18 11:49 10/21/18 11:49 10/21/18 11:49 10/21/18 11:49 10/21/18 11:49 Exam: GENERAL: Patient is agitated and uncooperative during exam oriented to name only-cachectic HEENT: Head is normocephalic and atraumatic. Extraocular muscles are intact. Pupils are equal, round, and reactive to light and accommodation. NECK: Supple. No carotid bruits. No lymphadenopathy or thyromegaly. LUNGS: Rhonchi throughout AP&L, no wheezing or rales symmetrical expansion, HEART: Regular rate and rhythm, S1, S2 without murmur, rubs or gallops. ABDOMEN: Soft, nontender, and nondistended. Positive bowel sounds. No hepatosplenomegaly was noted. EXTREMITIES: Without any cyanosis, clubbing, rash, lesions or edema. NEUROLOGIC: Cranial nerves II through XII are grossly intact. PSYCHIATRIC: agitated SKIN: No ulceration or induration present. - Assessment and Plan (1) Aspiration pneumonia Current Visit: Yes Status: Suspected Assessment and Plan: Patient presented with hypoxia d/t PNA; suspected aspiration. Imaging reflects possible pneumonistis with nonspecific opacity of the lingua and left upper lobe. 10/20--the patient is resting comfortably in bed at this time without any distress on 4 L oxygen mask. This is an improvement in condition from yesterday when she is requiring 8 L oxygen mask for respiratory support. Her WBC has slightly decreased at 20 and she has remained afebrile. Blood cultures final report with no growth. Sputum culture preliminary with no growth. RIP negative. Continue to treat with cefepime and Flagyl. Wean O2 as tolerated. Continue pureed diet and thin liquids; pills crushed in apple sauce Continue to attempt to wean oxygen as tolerated; she is currently resting comfortably on oxy-mask Continuous aerosols Continue daily oral steroids WBC elevated at 18 Patient will need outpatient follow-up with pulmonology within 6 weeks of discharge (2) Altered mental status Current Visit: Yes Status: Acute Assessment and Plan: 10/19--presented with AMS however, patient has baseline Alzheimer dementia. Appears to be returning to baseline today. She is oriented to self as well as place. [facility]. (3) Dementia with behavioral disturbance Current Visit: No Status: Acute Assessment and Plan: Continue donepezil at increased dose, continue Namenda; will need Rx Namenda at d/c. (4) Elevated troponin Current Visit: Yes Status: Acute (5) Acute respiratory failure with hypoxemia Current Visit: Yes Status: Acute Assessment and Plan: as above (6) Chest pain Current Visit: Yes Status: Resolved Assessment and Plan: resolved while she is demented she can answer basic yes or no questions and does not endorse chest pain DVT Prophylaxis: SC Heparin - Time Spent with Patient Total time spent is greater than 50% in coordination of care (as documented) at patient's floor/unit and/or counseling patient: less than 15 minutes Plan of Care Discussed with: patient Internal Medicine: Result - Labs CBC & Chem 7: 10/21/18 04:05 10/21/18 06:32 Labs: Short CBC 10/21/18 Range/Units 04:05 WBC 20.4 H (4.3-11.1) K/mcL Hgb 10.1 L (11.5-15.4) g/dL Hct 32.1 L (35.3-44.9) % Plt Count 193 (140-400) K/mcL Neutrophils # 14.3 H (1.6-8.9) K/mcL - ABG Interpretation ABG results: ABG ABG pH 7.52 pH Units (7.32-7.45) H 10/17/18 12:00 ABG pCO2 43 mmHg (35-45) 10/17/18 12:00 ABG pO2 63 mmHg (85-104) L 10/17/18 12:00 ABG O2 Saturation 94 % (95-98) L 10/17/18 12:00 PT/INR, D-dimer PT 15.4 Seconds (9.4-12.1) H 10/13/18 05:49 D-Dimer 1414 ng/mLFEU (0-500) H 10/12/18 15:10 Consult Discharge Plan - Plan Referrals: Chuy Lloyd MD [Partnered Physician] - _ (1) Aspiration pneumonia Qualifiers: Aspiration pneumonia type: unspecified Laterality: left Lung location: upper lobe of lung Qualified Code(s): J69.0 - Pneumonitis due to inhalation of food and vomit (2) Altered mental status Qualifiers: Altered mental status type: somnolence Qualified Code(s): R40.0 - Somnolence (3) Dementia with behavioral disturbance Qualifiers: Dementia type: vascular dementia Qualified Code(s): F01.51 - Vascular dementia with behavioral disturbance (6) Chest pain Qualifiers: Chest pain type: unspecified Qualified Code(s): R07.9 - Chest pain, unspecified
[2018-10-21 14:34] LABS: BUN/Creatinine Ratio 42 (6-26); Blood Urea Nitrogen 25 mg/dL (8-23); Carbon Dioxide 22 mEq/L (23-29); Chloride 106 mEq/L (98-107); Glucose 98 mg/dL (70-105); Osmolality,Calculated 298 (280-300); Potassium 4.8 mEq/L (3.5-5.1); Sodium 142 mEq/L (136-145); eGFR For Non-African Americans > 60 (> 60)
[2018-10-22] MEDS: Cefepime HCl 1,000 MG in 0.9 % Sodium Chloride Mini Bag 100 ML IVPB SCH ×3 (00:16→17:14)
[2018-10-22] MEDS: MetroNIDAZOLE 500 MG/100 ML 500 MG/100 ML BAG IVPB SCH ×3 (00:16→17:15)
[2018-10-22 03:58] LABS: Hematocrit 37.3 % (35.3-44.9); Mean Corpuscular HGB Conc 31.9 g/dL (31.6-35.5); Mean Corpuscular Hemoglobin 30.5 pg (28.0-33.3); Mean Corpuscular Volume 95.6 fL (83.0-100.0); Mean Platelet Volume 10.1 fL (9.4-12.4); Platelet Count 279 K/mcL (140-400); Red Cell Distribution Width 15.8 % (11.5-14.5)
[2018-10-22 03:59] LABS: Hemoglobin 11.9 g/dL (11.5-15.4)
[2018-10-22 04:09] LABS: BUN/Creatinine Ratio 46 (6-26); Blood Urea Nitrogen 26 mg/dL (8-23); Calcium 9.3 mg/dL (8.6-10.3); Carbon Dioxide 28 mEq/L (23-29); Chloride 102 mEq/L (98-107); Glucose 71 mg/dL (70-105); Osmolality,Calculated 287 (280-300); Potassium 4.5 mEq/L (3.5-5.1); Sodium 137 mEq/L (136-145); eGFR For Non-African Americans > 60 (> 60)
[2018-10-22 04:18] LABS: Lymphocytes # 5.4 K/mcL (0.6-4.6); Neutrophils # 14.3 K/mcL (1.6-8.9)
[2018-10-22] MEDS: *HR* Heparin 5,000 UNIT/ML VIAL SQ SCH ×2 (05:08→17:15)
[2018-10-22] MEDS: Insulin LISPRO 300 UNITS/3 ML VIAL SQ SCH ×4 (08:44→21:52)
[2018-10-22] MEDS: Multivit/Ca/Min/Fe/FA 1 TAB TABLET PO SCH (08:47)
[2018-10-22] MEDS: Cholecalciferol (D-3) 1,000 UNIT TABLET PO SCH (08:47)
[2018-10-22] MEDS: predniSONE 20 MG TABLET PO SCH (08:47)
[2018-10-22] MEDS: Insulin DETEMIR 100 UNIT/ML X5UNITS SQ SCH ×2 (08:49→21:51)
--- NOTE | 2018-10-22 09:22 | Internal Med Progress Note ---
Hospitalist Progress Note - Encounter Date of Encounter: 10/22/18 Time of Encounter: 09:17 - Subjective Interval History: Altered mental status and pneumonia. Waxing and waning respiratory status. Unable to wean from oxygen. Discussed with next of kin who is the patient DNR CCA-DNI. We will consult palliative care for goals of care discussion with shira manning. - Exam Vitals: Temp Pulse Resp BP Pulse Ox 98.2 F 63 20 106/52 93 10/21/18 23:11 10/22/18 06:33 10/22/18 06:33 10/22/18 06:33 10/22/18 06:33 Exam: GENERAL: Patient is agitated and uncooperative during exam oriented to name only-cachectic HEENT: Head is normocephalic and atraumatic. Extraocular muscles are intact. Pupils are equal, round, and reactive to light and accommodation. NECK: Supple. No carotid bruits. No lymphadenopathy or thyromegaly. LUNGS: Rhonchi throughout AP&L, no wheezing or rales symmetrical expansion, HEART: Regular rate and rhythm, S1, S2 without murmur, rubs or gallops. ABDOMEN: Soft, nontender, and nondistended. Positive bowel sounds. No hepatosplenomegaly was noted. EXTREMITIES: Without any cyanosis, clubbing, rash, lesions or edema. NEUROLOGIC: Cranial nerves II through XII are grossly intact. PSYCHIATRIC: agitated SKIN: No ulceration or induration present. - Assessment and Plan (1) Aspiration pneumonia Current Visit: Yes Status: Suspected Assessment and Plan: Patient presented with hypoxia d/t PNA; suspected aspiration. Imaging reflects possible pneumonistis with nonspecific opacity of the lingua and left upper lobe. 10/21--as per my assessment this morning the patient was resting comfortably without any distress on 4 L oxygen mask. However, the RN notified me that she was now having increased shortness of breath and needed to have up titration of oxygen at 8 L. With waxing and waning respiratory status and increased O2 requirements and we will consult palliative care and goals of care discussion with family. WBC increasing overnight to 24.6. Continue to treat with cefepime and Flagyl. Wean O2 as tolerated. Continue pureed diet and thin liquids; pills crushed in apple sauce Continue to attempt to wean oxygen as tolerated; she is currently resting comfortably on oxy-mask Continuous aerosols Continue daily oral steroids Consult palliative care; discuss goals of care Patient will need outpatient follow-up with pulmonology within 6 weeks of discharge (2) Altered mental status Current Visit: Yes Status: Acute Assessment and Plan: 10/19--presented with AMS however, patient has baseline Alzheimer dementia. She is back to baseline mental status. She is oriented to self as well as place. Plan is to discharge to [facility] patient clinically stable. (3) Dementia with behavioral disturbance Current Visit: No Status: Acute Assessment and Plan: Continue donepezil at increased dose, continue Namenda; will need Rx Namenda at d/c. (4) Elevated troponin Current Visit: Yes Status: Acute Assessment and Plan: 10/22-- continues to deny chest pain (5) Acute respiratory failure with hypoxemia Current Visit: Yes Status: Acute Assessment and Plan: as above (6) Chest pain Current Visit: Yes Status: Resolved Assessment and Plan: resolved while she is demented she can answer basic yes or no questions and does not endorse chest pain DVT Prophylaxis: SC Heparin - Time Spent with Patient Total time spent is greater than 50% in coordination of care (as documented) at patient's floor/unit and/or counseling patient: less than 15 minutes Plan of Care Discussed with: patient Internal Medicine: Result - Labs CBC & Chem 7: 10/22/18 03:27 10/22/18 03:27 Labs: Short CBC 10/22/18 Range/Units 03:27 WBC 24.6 H (4.3-11.1) K/mcL Hgb 11.9 D (11.5-15.4) g/dL Hct 37.3 (35.3-44.9) % Plt Count 279 (140-400) K/mcL Neutrophils # 14.3 H (1.6-8.9) K/mcL BMP 10/21/18 10/22/18 06:32 03:27 Sodium 142 137 Potassium 4.8 4.5 Chloride 106 102 Carbon Dioxide 22 L 28 BUN 25 H 26 H Creatinine 0.60 0.56 L Glucose 98 71 Calcium 9.0 9.3 - ABG Interpretation ABG results: ABG ABG pH 7.52 pH Units (7.32-7.45) H 10/17/18 12:00 ABG pCO2 43 mmHg (35-45) 10/17/18 12:00 ABG pO2 63 mmHg (85-104) L 10/17/18 12:00 ABG O2 Saturation 94 % (95-98) L 10/17/18 12:00 PT/INR, D-dimer PT 15.4 Seconds (9.4-12.1) H 10/13/18 05:49 D-Dimer 1414 ng/mLFEU (0-500) H 10/12/18 15:10 Consult Discharge Plan - Plan Referrals: Chuy Lloyd MD [Partnered Physician] - (1) Aspiration pneumonia Qualifiers: Aspiration pneumonia type: unspecified Laterality: left Lung location: upper lobe of lung Qualified Code(s): J69.0 - Pneumonitis due to inhalation of food and vomit (2) Altered mental status Qualifiers: Altered mental status type: somnolence Qualified Code(s): R40.0 - Somnolence (3) Dementia with behavioral disturbance Qualifiers: Dementia type: vascular dementia Qualified Code(s): F01.51 - Vascular dementia with behavioral disturbance (6) Chest pain Qualifiers: Chest pain type: unspecified Qualified Code(s): R07.9 - Chest pain, unspecified
--- NOTE | 2018-10-22 11:38 | Palliative - Consult Note ---
Date of Encounter: 10/22/18 Time of Encounter: 11:30 - Assessment and Plan (1) Hypoxia Current Visit: Yes Status: Acute (2) Goals of care, counseling/discussion Current Visit: Yes Status: Acute Assessment and plan: Patient's son Jared is POA and could not find number for him - was able to contact pt daughter Ramila who provided his number of [phone]. Had to leave voicemail. Daughter stated that she is not surprised her mother is not doing well - stated is has been a downhill course since that time. She is agreeable to more comfort/hospice care, however, brother is power of traffic law attorney and she is leaving decisions to him. It does not appear any Medicaid is in place - so hospice at [facility] would have to be private pay, which may be issue. Will await return call from Jared. (3) Altered mental status Current Visit: Yes Status: Acute Qualifiers: Altered mental status type: somnolence Qualified Code(s): R40.0 - Somnolenc e (4) Dementia Current Visit: No Status: Chronic Assessment and plan: Psych saw last week and made adjustments to Aricept and started Namenda Qualifiers: Dementia type: unspecified type Dementia behavioral disturbance: with behavioral disturbance Qualified Code(s): F03.91 - Unspecified dementia with behavioral disturbance (5) Aspiration pneumonia Current Visit: Yes Status: Suspected Assessment and plan: ontinues treatment with IV atb. Qualifiers: Aspiration pneumonia type: unspecified Laterality: left Lung location: upper lobe of lung Qualified Code(s): J69.0 - Pneumonitis due to inhalation of food and vomit (6) Acute respiratory failure with hypoxemia Current Visit: Yes Status: Acute Assessment and plan: Still with significant hypoxia at times. May possible still be silently aspirating. Palliative-CN HPI - Data of Consult Requesting Physician: Forest Cardenas MD Primary Care Provider: PCP NONE - Consult Narrative History of present illness: Ms. Kline is a 78 year old female with a history of dementia, presented to hospital after being found hypoxic in doctor's office and was sent to hospital. She has now been here 9 days, and has been treated for aspiration pneumonia. PE ruleld out on admission. She had pulmonology consult last week, and speech the iwona had seen her and approved for pureed diet with thin liquids. SW was preparing for her to go to [facility]. She previously lived with daughter Ramila. There are 4 children, and son Jared is POA. Discussions were held with son last week, and she was transitioned to DNr/DNI - no heroic measures. Over the weekend, she continued to require adjusting of oxygen. Was actually down to 4L this am, but now back up to 10L. Her Leukocytosis which last week returned to normal, has continued to now escalate greater than 24,000. Palliative was consulted to assist with further goals of care discussion. Upon my visit, eyes are open, does not verbalize or follow commands. Appears comfortable and in no distress. No family present at bedside. CC: Forest Cardenas MD - Time Spent with Patient Time: Total time spent is greater than 50% in coordination of care (as documented) at patient's floor/unit and/or counseling patient: Time with patient: 45 minutes Past Med Surg Social Fam HX - Past Medical History Medical history: dementia, hypertension, other Additional medical history: encephalitis Psychiatric history: anxiety, depression - Past Surgical History Surgical History: hysterectomy - Social History Smoking Status: Current some day smoker Smokeless Tobacco Status: No Alcohol use: none Drug use: none - Family History Sister Living Status: Hx Family Respiratory Disorders: Yes Medications and Allergies Citalopram Hydrobromide [Celexa] 40 mg PO DAILY 02/07/17 [History] Donepezil HCl [Aricept] 5 mg PO HS 02/07/17 [History] Losartan Potassium [Cozaar] 50 mg PO DAILY 02/07/17 [History] Multivitamin [One Daily Essential] 1 tab PO DAILY 04/23/18 [History] ALPRAZolam [Xanax 0.5 MG Tablet] 0.5 mg PO BID PRN 08/07/18 [History] traZODone [TraZODone] 50 mg PO HS PRN 08/07/18 [History] Atorvastatin [Lipitor] 40 mg PO HS tablet 08/09/18 [Rx] Cholecalciferol (D-3) [Vitamin D] 1,000 unit PO DAILY #30 tablet 08/09/18 [Rx] Calcium Carbonate [Children's Soothe] 400 mg PO DAILY 10/14/18 [History] OLANZapine [Zyprexa] 2.5 mg PO QAM 10/14/18 [History] OLANZapine [Zyprexa] 5 mg PO HS 10/14/18 [History] amLODIPine [Norvasc] 5 mg PO HS 10/14/18 [History] Allergy/AdvReac Type Severity Reaction Status Date / Time Histamine H2 Inhibitors Allergy Rash Verified 08/07/18 08:52 ROS unobtainable: due to mental status Palliative Care-Exam - Constitutional Vitals: Temp Pulse Resp BP Pulse Ox 98.2 F 63 20 106/52 93 10/21/18 23:11 10/22/18 06:33 10/22/18 06:33 10/22/18 06:33 10/22/18 06:33 General appearance: Present: no acute distress - Head Head Exam: Present: normal inspection, normocephalic - Eye Eye exam: Present: normal appearance, PERRL - Respiratory Additional comments: Faint inspiratory crackles bilateral bases - Cardiovascular Cardiovascular exam: Present: +S1, +S2 - GI/Abdominal Exam GI/Abdominal exam: Present: normal bowel sounds - Extremities Exam Extremities exam: Present: normal capillary refill, normal inspection - Neurological Exam Neurological exam: Present: alert Additional comments: Eyes open, does not follow any commands. MCNALLY. Makes repeated mumbled noise, but unable to understand. Internal Medicine - CN: Reslt - Labs CBC & Chem 7: 10/22/18 03:27 10/22/18 03:27 Labs: Short CBC 10/22/18 Range/Units 03:27 WBC 24.6 H (4.3-11.1) K/mcL Hgb 11.9 D (11.5-15.4) g/dL Hct 37.3 (35.3-44.9) % Plt Count 279 (140-400) K/mcL Neutrophils # 14.3 H (1.6-8.9) K/mcL BMP 10/21/18 10/22/18 06:32 03:27 Sodium 142 137 Potassium 4.8 4.5 Chloride 106 102 Carbon Dioxide 22 L 28 BUN 25 H 26 H Creatinine 0.60 0.56 L Glucose 98 71 Calcium 9.0 9.3 - ABG Interpretation ABG results: ABG ABG pH 7.52 pH Units (7.32-7.45) H 10/17/18 12:00 ABG pCO2 43 mmHg (35-45) 10/17/18 12:00 ABG pO2 63 mmHg (85-104) L 10/17/18 12:00 ABG O2 Saturation 94 % (95-98) L 10/17/18 12:00 PT/INR, D-dimer PT 15.4 Seconds (9.4-12.1) H 10/13/18 05:49 D-Dimer 1414 ng/mLFEU (0-500) H 10/12/18 15:10 Consult Discharge Plan - Plan Referrals: Chuy Lloyd MD [Partnered Physician] - Palliative Quality Palliative Quality: Screen for Code Status: Yes, Screen for Goals of Care: Yes, Screen for Pain: Yes, If Pain Regimen Started, Initiate Bowel Regimen: NA, Screen for Nausea/Vomitting: Yes Code Status: 10/20/18 11:57 Resuscitation Status: Active [RES] Routine Comment: Resuscitation Status: [id number]
--- NOTE | 2018-10-22 14:45 | Electrocardiograph Report ---
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
[2018-10-23] MEDS: MetroNIDAZOLE 500 MG/100 ML 500 MG/100 ML BAG IVPB SCH ×3 (00:08→16:56)
[2018-10-23] MEDS: Cefepime HCl 1,000 MG in 0.9 % Sodium Chloride Mini Bag 100 ML IVPB SCH ×3 (01:12→16:55)
[2018-10-23 04:12] LABS: Hemoglobin 10.7 g/dL (11.5-15.4); Mean Corpuscular HGB Conc 31.5 g/dL (31.6-35.5); Mean Corpuscular Hemoglobin 30.1 pg (28.0-33.3); Mean Corpuscular Volume 95.5 fL (83.0-100.0); Mean Platelet Volume 9.7 fL (9.4-12.4); Platelet Count 258 K/mcL (140-400); Red Blood Count 3.56 M/mcL (3.82-4.97); Red Cell Distribution Width 15.9 % (11.5-14.5)
[2018-10-23 04:22] LABS: BUN/Creatinine Ratio 54 (6-26); Blood Urea Nitrogen 28 mg/dL (8-23); Calcium 9.1 mg/dL (8.6-10.3); Carbon Dioxide 26 mEq/L (23-29); Chloride 104 mEq/L (98-107); Glucose 73 mg/dL (70-105); Osmolality,Calculated 290 (280-300); Potassium 4.6 mEq/L (3.5-5.1); Sodium 138 mEq/L (136-145); eGFR For Non-African Americans > 60 (> 60)
[2018-10-23 05:22] LABS: Platelet Estimate Normal (Normal)
[2018-10-23 05:23] LABS: Lymphocytes # 4.8 K/mcL (0.6-4.6); Monocytes # 1.3 K/mcL (0.0-1.3); Neutrophils # 14.9 K/mcL (1.6-8.9)
[2018-10-23] MEDS: *HR* Heparin 5,000 UNIT/ML VIAL SQ SCH ×2 (05:27→16:55)
[2018-10-23] MEDS: Insulin LISPRO 300 UNITS/3 ML VIAL SQ SCH ×4 (07:51→20:52)
--- NOTE | 2018-10-23 08:46 | Internal Med Progress Note ---
<Renita Vail - Last Filed: 10/23/18 16:56> Hospitalist Progress Note - Encounter Date of Encounter: 10/23/18 Time of Encounter: 07:45 - Subjective Interval History: Mrs. Klein was seen at bedside this morning. She was awake and comfortable her vitals. He was on 9 L of oxygen mask. Family was at bedside. Most of the history was obtained from family, patient has history of dementia. Her 2 daughters missed Ernie's health has been slowly deteriorating. Her oxygen status had worsened at her PCPs visit and she was urged to is at the ER leading to current admission. They noted she still smokes 1 pack per day and becomes adamant if she does not get her cigarettes. They do not have she is bedbound full she can be multiple but due to her dementia she ends up walking to places that are not safe. He is also incontinent mood often alters. This morning Ms. Kline had no complaints. She denied fever, chills, nausea, emesis, chest pain, abdominal pain. Per family she does complete her meals assistance, - Exam Vitals: Temp Pulse Resp BP Pulse Ox 97.8 F 65 16 143/72 99 10/23/18 07:10 10/23/18 07:10 10/23/18 07:10 10/23/18 07:10 10/23/18 07:10 Exam: General: Patient is alert, no acute distress Head: atraumatic, normocephalic, Eye: normal appearance, PERRL, no scleral icterus, no conjunctival injection ENT: mucous membranes moist, normal external ear exam Neck: Normal inspection, trachea midline, full ROM Chest: Normal inspection, symmetric chest rise Respiratory: Good respiratory effort. No wheeze, crackles or rhonchi. Decreased breath sounds at bilateral lower lobes. Cardiovascular: Regular rate and rhythm. s1 and s2 No clicks, rubs, gallops, or murmurs. Abdomen: Bowel sounds present normoactive x-4 quadrants. Abdomen is soft, nondistended. no epigastric tenderness. No guarding or rebound. Musculoskeletal: Spontaneously moving all extremities. no edema, no calf tenderness Skin: warm, dry, intact. Neuro: Not oriented to person, place or time Psych: Patient's affect is normal, thought content not congruent - Assessment and Plan (1) Aspiration pneumonia Current Visit: Yes Status: Acute Assessment and Plan: Patient presented with hypoxia d/t PNA; suspected aspiration. Imaging reflects possible pneumonistis with nonspecific opacity of the lingua and left upper lobe. Basilar atelectasis. 10/12/18 CTA at presentation was negative for PE 10/13/18 was 12.8 comfortable in 4 L of oxygen mask 10/21/18 started requiring increased supplemental oxygen Since 10/16/18 WBC has been trending up. His morning her white count is 21.9 She is denying any abdominal pain she has incontinence unable to determine the frequency of bowel movements Continue pureed diet and thin liquids; pills crushed in apple sauce Continue to attempt to wean oxygen as tolerated; she is currently resting com fortably on oxy-mask Continuous aerosols Continue daily oral steroids Consult palliative care; discuss goals of care Patient will need outpatient follow-up with pulmonology within 6 weeks of discharge (2) Altered mental status Current Visit: Yes Status: Chronic Assessment and Plan: Not acute. Lives at home with her daughter. Her daughter she has end-stage Alzheimer's disease. Not suspecting UTI as urinalysis was negative. As no complaints of urinary urgency or pelvic pain, mental status likely due to chronic cause. She has not oriented to person place or time. Continue Aricept Continue Namenda Avoid nighttime disturbance Continue to orient her Planned for [facility] hospice tomorrow (3) Dementia with behavioral disturbance Current Visit: No Status: Acute Assessment and Plan: Continue donepezil, continue Namenda. We have been meeting with palliative care later today. (4) Elevated troponin Current Visit: Yes Status: Acute Assessment and Plan: Troponin was noted to be mildly elevated upon admission. Likely secondary to demand ischemia and underlying pneumonia. (5) Acute respiratory failure with hypoxemia Current Visit: Yes Status: Acute Assessment and Plan: Likely has underlying COPD She smokes 1 pack per day Acute respiratory failure is likely due to suspected aspiration pneumonia Requiring 9 liters of oxygen mask Continue DuoNeb Continue oral prednisone will start tapering Continue spirometer as she has underlying atelectasis DVT Prophylaxis: SCDs - Time Spent with Patient Total time spent is greater than 50% in coordination of care (as documented) at patient's floor/unit and/or counseling patient: Internal Medicine: Result - Labs CBC & Chem 7: 10/23/18 03:46 10/23/18 03:46 Labs: Short CBC 10/23/18 Range/Units 03:46 WBC 21.9 H (4.3-11.1) K/mcL Hgb 10.7 L (11.5-15.4) g/dL Hct 34.0 L (35.3-44.9) % Plt Count 258 (140-400) K/mcL Neutrophils # 14.9 H (1.6-8.9) K/mcL BMP 10/23/18 03:46 Sodium 138 Potassium 4.6 Chloride 104 Carbon Dioxide 26 BUN 28 H Creatinine 0.52 L Glucose 73 Calcium 9.1 - ABG Interpretation ABG results: ABG ABG pH 7.52 pH Units (7.32-7.45) H 10/17/18 12:00 ABG pCO2 43 mmHg (35-45) 10/17/18 12:00 ABG pO2 63 mmHg (85-104) L 10/17/18 12:00 ABG O2 Saturation 94 % (95-98) L 10/17/18 12:00 PT/INR, D-dimer PT 15.4 Seconds (9.4-12.1) H 10/13/18 05:49 D-Dimer 1414 ng/mLFEU (0-500) H 10/12/18 15:10 Consult Discharge Plan - Plan Referrals: Chuy Lloyd MD [Partnered Physician] - <Forest Cardenas - Last Filed: 10/23/18 17:12> Hospitalist Progress Note - Encounter Date of Encounter: 10/23/18 - Exam Vitals: Temp Pulse Resp BP Pulse Ox 98.4 F 79 16 123/57 96 10/23/18 15:21 10/23/18 15:21 10/23/18 15:21 10/23/18 15:21 10/23/18 15:21 - Assessment and Plan (1) Altered mental status Current Visit: Yes Status: Chronic (2) Dementia with behavioral disturbance Current Visit: No Status: Acute (3) Elevated troponin Current Visit: Yes Status: Acute (4) Aspiration pneumonia Current Visit: Yes Status: Acute (5) Acute respiratory failure with hypoxemia Current Visit: Yes Status: Acute - Time Spent with Patient Total time spent is greater than 50% in coordination of care (as documented) at patient's floor/unit and/or counseling patient: Internal Medicine: Result - Labs CBC & Chem 7: 10/23/18 03:46 10/23/18 03:46 Labs: Short CBC 10/23/18 Range/Units 03:46 WBC 21.9 H (4.3-11.1) K/mcL Hgb 10.7 L (11.5-15.4) g/dL Hct 34.0 L (35.3-44.9) % Plt Count 258 (140-400) K/mcL Neutrophils # 14.9 H (1.6-8.9) K/mcL BMP 10/23/18 03:46 Sodium 138 Potassium 4.6 Chloride 104 Carbon Dioxide 26 BUN 28 H Creatinine 0.52 L Glucose 73 Calcium 9.1 - ABG Interpretation ABG results: ABG ABG pH 7.52 pH Units (7.32-7.45) H 10/17/18 12:00 ABG pCO2 43 mmHg (35-45) 10/17/18 12:00 ABG pO2 63 mmHg (85-104) L 10/17/18 12:00 ABG O2 Saturation 94 % (95-98) L 10/17/18 12:00 PT/INR, D-dimer PT 15.4 Seconds (9.4-12.1) H 10/13/18 05:49 D-Dimer 1414 ng/mLFEU (0-500) H 10/12/18 15:10 - Attending Attestation I have seen and examined this patient independently. I have discussed with resident physician Dr Vail regarding the management plan. Agree with the documentation. <Renita Vail - Last Filed: 10/23/18 16:56> (1) Aspiration pneumonia Qualifiers: Aspiration pneumonia type: unspecified Laterality: left Lung location: upper lobe of lung Qualified Code(s): J69.0 - Pneumonitis due to inhalation of food and vomit (2) Altered mental status Qualifiers: Altered mental status type: somnolence Qualified Code(s): R40.0 - Somnolence (3) Dementia with behavioral disturbance Qualifiers: Dementia type: vascular dementia Qualified Code(s): F01.51 - Vascular dementia with behavioral disturbance <Forest Cardenas - Last Filed: 10/23/18 17:12> (1) Altered mental status Qualifiers: Altered mental status type: somnolence Qualified Code(s): R40.0 - Somnolence (2) Dementia with behavioral disturbance Qualifiers: Dementia type: vascular dementia Qualified Code(s): F01.51 - Vascular dementia with behavioral disturbance (4) Aspiration pneumonia Qualifiers: Aspiration pneumonia type: unspecified Laterality: left Lung location: upper lobe of lung Qualified Code(s): J69.0 - Pneumonitis due to inhalation of food and vomit
[2018-10-23] MEDS: predniSONE 20 MG TABLET PO SCH (09:10)
[2018-10-23] MEDS: Insulin DETEMIR 100 UNIT/ML X5UNITS SQ SCH ×2 (09:10→20:52)
[2018-10-23] MEDS: Multivit/Ca/Min/Fe/FA 1 TAB TABLET PO SCH (09:10)
[2018-10-23] MEDS: Cholecalciferol (D-3) 1,000 UNIT TABLET PO SCH (09:10)
--- NOTE | 2018-10-23 09:30 | Palliative Progress Note ---
Date of Encounter: 10/23/18 Time of Encounter: 09:25 - Assessment and plan (1) Hypoxia Current Visit: Yes Status: Acute Assessment and plan: Continues to require 8-10 l oxygen, Currently on 9LPM (2) Goals of care, counseling/discussion Current Visit: Yes Status: Acute Assessment and plan: Patient 2 daughters/son at bedside. Discussed goals of care at length. Family understands that she has not improved much after 10 days of treatment, and still requiring oxygen despite treatment. Family discussed her decline since last June. Daughter Ramila desires to take her home with hospice and keep her comfortable. She does not desire placement at [facility] as was planned. They would like referral to [place] [facility]. They do need oxygen as well as other DME's set up , and this was called to [facility]. Plan to d/c tomorrow. Notifed Dr. Varela. Will f/u in am. (3) Altered mental status Current Visit: Yes Status: Chronic Qualifiers: Altered mental status type: somnolence Qualified Code(s): R40.0 - Somnolence (4) Dementia Current Visit: No Status: Chronic Qualifiers: Dementia type: unspecified type Dementia behavioral disturbance: with behavioral disturbance Qualified Code(s): F03.91 - Unspecified dementia with behavioral disturbance (5) Aspiration pneumonia Current Visit: Yes Status: Acute Qualifiers: Aspiration pneumonia type: unspecified Laterality: left Lung location: upper lobe of lung Qualified Code(s): J69.0 - Pneumonitis due to inhalation of food and vomit (6) Acute respiratory failure with hypoxemia Current Visit: Yes Status: Acute - Time Spent With Patient Total time spent is greater than 50% in coordination of care (as documented) at patient's floor/unit and/or counseling patient: - Subjective Interval history: Patient awake and alert, 2 daughters and son at bedside. Nonverbal, restless. Does not follow commands. - Constitutional Vitals: Abnormal lab results WBC 21.9 K/mcL (4.3-11.1) H 10/23/18 03:46 RBC 3.56 M/mcL (3.82-4.97) L 10/23/18 03:46 Hgb 10.7 g/dL (11.5-15.4) L 10/23/18 03:46 Hct 34.0 % (35.3-44.9) L 10/23/18 03:46 MCHC 31.5 g/dL (31.6-35.5) L 10/23/18 03:46 RDW 15.9 % (11.5-14.5) H 10/23/18 03:46 Metamyelocytes % 2.0 % (0) H 10/22/18 03:27 Myelocytes % 4.0 % (0) H 10/23/18 03:46 Neutrophils # 14.9 K/mcL (1.6-8.9) H 10/23/18 03:46 Lymphocytes # 4.8 K/mcL (0.6-4.6) H 10/23/18 03:46 Nucleated RBCs/100 WBC 0.3 /100 WBC (0) H 10/16/18 03:39 Anisocytosis 1+ (Not Present) A 10/21/18 04:05 PT 15.4 Seconds (9.4-12.1) H 10/13/18 05:49 D-Dimer 1414 ng/mLFEU (0-500) H 10/12/18 15:10 ABG pH 7.52 pH Units (7.32-7.45) H 10/17/18 12:00 ABG pO2 63 mmHg (85-104) L 10/17/18 12:00 ABG HCO3 35 mEq/L (21-27) H 10/17/18 12:00 ABG Total CO2 37 mEq/L (20-26) H 10/17/18 12:00 ABG O2 Saturation 94 % (95-98) L 10/17/18 12:00 ABG Base Excess 11 mEq/L (-2 to 3) H 10/17/18 12:00 BUN 28 mg/dL (8-23) H 10/23/18 03:46 Creatinine 0.52 mg/dL (0.60-1.20) L 10/23/18 03:46 BUN/Creatinine Ratio 54 (6-26) H 10/23/18 03:46 POC Glucose 289 mg/dL (70-99) H 10/22/18 19:38 AST 10 Units/L (13-39) L 10/13/18 05:49 Alkaline Phosphatase 113 Units/L (34-104) H 10/13/18 05:49 Troponin I 0.04 ng/mL (< 0.04) H* 10/13/18 13:09 B-Natriuretic Peptide 213 pg/mL (Less than 100) H 10/17/18 09:04 Albumin 3.2 g/dL (3.5-5.7) L 10/13/18 05:49 Globulin 3.7 g/dL (2.4-3.5) H 10/13/18 05:49 Albumin/Globulin Ratio 0.9 (1.1-2.2) L 10/13/18 05:49 General appearance: Present: no acute distress - Respiratory Respiratory exam: Present: decreased breath sounds - Cardiovascular Cardiovascular exam: Present: +S1, +S2 - GI/Abdominal GI/Abdominal exam: Present: normal bowel sounds, soft - Extremities Exam Extremities exam: Present: normal capillary refill, normal inspection - Neurological Exam Neurological exam: Present: alert Additional comments: Nonverbal, does not follow commands. MCNALLY - Skin Skin exam: Present: dry, pallor, warm Palliative Quality Palliative Quality: Screen for Code Status: Yes, Screen for Goals of Care: Yes, Screen for Pain: Yes, If Pain Regimen Started, Initiate Bowel Regimen: NA, Scr een for Nausea/Vomitting: Yes Code Status: 10/20/18 11:57 Resuscitation Status: Active [RES] Routine Comment: Resuscitation Status: [id number] - Labs CBC & Chem 7: 10/23/18 03:46 10/23/18 03:46 Labs: Laboratory Results - last 24 hr 10/22/18 10/22/18 10/22/18 06:42 11:52 16:31 WBC RBC Hgb Hct MCV MCH MCHC RDW Plt Count MPV Seg Neutrophils % Lymphocytes % Monocytes % Myelocytes % Neutrophils # Lymphocytes # Monocytes # Platelet Estimate Sodium Potassium Chloride Carbon Dioxide BUN Creatinine Est GFR ( Amer) Est GFR (Non-Af Amer) BUN/Creatinine Ratio Glucose POC Glucose 72 320 H 277 H Calculated Osmolality Calcium 10/22/18 10/23/18 10/23/18 19:38 03:46 03:46 WBC 21.9 H RBC 3.56 L Hgb 10.7 L Hct 34.0 L MCV 95.5 MCH 30.1 MCHC 31.5 L RDW 15.9 H Plt Count 258 MPV 9.7 Seg Neutrophils % 68.0 Lymphocytes % 22.0 Monocytes % 6.0 Myelocytes % 4.0 H Neutrophils # 14.9 H Lymphocytes # 4.8 H Monocytes # 1.3 Platelet Estimate Normal Sodium 138 Potassium 4.6 Chloride 104 Carbon Dioxide 26 BUN 28 H Creatinine 0.52 L Est GFR ( Amer) > 60 Est GFR (Non-Af Amer) > 60 BUN/Creatinine Ratio 54 H Glucose 73 POC Glucose 289 H Calculated Osmolality 290 Calcium 9.1 - ABG Interpretation ABG results: ABG ABG pH 7.52 pH Units (7.32-7.45) H 10/17/18 12:00 ABG pCO2 43 mmHg (35-45) 10/17/18 12:00 ABG pO2 63 mmHg (85-104) L 10/17/18 12:00 ABG O2 Saturation 94 % (95-98) L 10/17/18 12:00 PT/INR, D-dimer PT 15.4 Seconds (9.4-12.1) H 10/13/18 05:49 D-Dimer 1414 ng/mLFEU (0-500) H 10/12/18 15:10 Consult Discharge Plan - Plan Referrals: Chuy Lloyd MD [Partnered Physician] -
[2018-10-24] MEDS: Cefepime HCl 1,000 MG in 0.9 % Sodium Chloride Mini Bag 100 ML IVPB SCH ×2 (00:25→09:50)
[2018-10-24] MEDS: MetroNIDAZOLE 500 MG/100 ML 500 MG/100 ML BAG IVPB SCH ×2 (01:08→09:50)
[2018-10-24 04:30] LABS: Basophils # 0.1 K/mcL (0.0-0.2); Basophils % 0.5 %; Eosinophils # 0.2 K/mcL (0.0-0.6); Eosinophils % 0.8 %; Hematocrit 31.9 % (35.3-44.9); Hemoglobin 10.4 g/dL (11.5-15.4); Immature Granulocytes % 6.5 % (0-4); Lymphocytes # 4.1 K/mcL (0.6-4.6); Lymphocytes % 18.2 %; Mean Corpuscular HGB Conc 32.6 g/dL (31.6-35.5); Mean Corpuscular Hemoglobin 30.5 pg (28.0-33.3); Mean Corpuscular Volume 93.5 fL (83.0-100.0); Mean Platelet Volume 10.1 fL (9.4-12.4); Monocytes # 3.2 K/mcL (0.0-1.3); Monocytes % 14.3 %; Neutrophils # 13.3 K/mcL (1.6-8.9); Platelet Count 263 K/mcL (140-400); Red Blood Count 3.41 M/mcL (3.82-4.97); Red Cell Distribution Width 16.3 % (11.5-14.5); Segmented Neutrophils % 59.7 %
[2018-10-24 04:46] LABS: BUN/Creatinine Ratio 47 (6-26); Blood Urea Nitrogen 28 mg/dL (8-23); Calcium 9.2 mg/dL (8.6-10.3); Carbon Dioxide 27 mEq/L (23-29); Chloride 102 mEq/L (98-107); Glucose 79 mg/dL (70-105); Osmolality,Calculated 284 (280-300); Sodium 135 mEq/L (136-145); eGFR For Non-African Americans > 60 (> 60)
[2018-10-24 05:24] LABS: Platelet Estimate Normal (Normal)
[2018-10-24] MEDS: *HR* Heparin 5,000 UNIT/ML VIAL SQ SCH (05:49)
[2018-10-24] MEDS: Insulin LISPRO 300 UNITS/3 ML VIAL SQ SCH ×2 (07:28→12:31)
--- NOTE | 2018-10-24 08:44 | Discharge Summary ---
<Richard Varela - Last Filed: 10/24/18 13:29> - NOTES TO OUTPATIENT PROVIDER Notes to Outpatient Provider: Patient initially presented for aspiration pneumonia was treated with IV antibiotics and steroids. Patient continues required high levels of oxygen 8-10 L with no improvement in 10 days. Family d ecided to transition her to hospice care. Patient will be using [facility] at home. Date of Encounter: 10/24/18 Time of Encounter: 08:42 - Discharge Diagnosis (1) Aspiration pneumonia Priority: Primary Status: Acute Qualifiers: Aspiration pneumonia type: unspecified Laterality: left Lung location: upper lobe of lung Qualified Code(s): J69.0 - Pneumonitis due to inhalation of food and vomit (2) Altered mental status Priority: Secondary Status: Chronic Qualifiers: Altered mental status type: somnolence Qualified Code(s): R40.0 - Somnolence (3) Dementia with behavioral disturbance Priority: Secondary Status: Chronic Qualifiers: Dementia type: vascular dementia Qualified Code(s): F01.51 - Vascular dementia with behavioral disturbance (4) Elevated troponin Priority: Secondary Status: Acute (5) Acute respiratory failure with hypoxemia Priority: Secondary Status: Acute Hospital course: Ms. Kline is a 78 year old female presented with chief complaint of chest pain. He was seen to be somnolent on presentation. She has history of dementia. She was confused and disoriented as well. She was suspected to have aspiration pneumonia and started on IV antibiotics, steroids, DuoNeb's. Patient had chest pain rule out workup as well. Patient's troponins were adynamic and flat. Echocardiogram was LVEF 60-60% without any wall motion or valvular abnormalities. CTA was negative for PE but did show nonspecific opacity in the left upper lobe. The shins oxygenation requirement increased and her mental status waxed and waned as she was in the hospital for a total of 12 days. Pulmonology was consulted and reported her condition was secondary to diastolic heart failure. Patient was diuresed however this did not improve her hypoxemia. Patient's respirations status becoming refractory to treatment and her CODE STATUS being a DNR CCA DNI, palliative care was consulted. Patient's POA and family decided to transition her care to hospice. Patient will be discharged today to home hospice. Discharge discussed with: patient, family - Time Spent with Patient Total time spent providing and/or coordinating discharge services: - Discharge Medications Prescriptions: RX: LORazepam Oral Conc [Ativan Oral Conc] 0.5 mg PO Q6HR PRN 4 Days #15 mls PRN Reason: Anxiety MORPHINE SUL Oral CONC [Roxanol Oral Conc] 2.5 - 5 mg PO Q4H PRN 4 Days #15 oral.syg PRN Reason: pain/dyspnea Home Medications: RX: Citalopram Hydrobromide [Celexa] 40 mg PO DAILY 02/07/17 [History] RX: Losartan Potassium [Cozaar] 50 mg PO DAILY 02/07/17 [History] RX: traZODone [TraZODone] 50 mg PO HS PRN 08/07/18 [History] RX: OLANZapine [Zyprexa] 2.5 mg PO QAM 10/14/18 [History] RX: OLANZapine [Zyprexa] 5 mg PO HS 10/14/18 [History] RX: amLODIPine [Norvasc] 5 mg PO HS 10/14/18 [History] MORPHINE SUL Oral CONC [Roxanol Oral Conc] 2.5 - 5 mg PO Q4H PRN 4 Days #15 oral.syg 10/24/18 [Rx] RX: LORazepam Oral Conc [Ativan Oral Conc] 0.5 mg PO Q6HR PRN 4 Days #15 mls 10/24/18 [Rx] Allergies/Adverse Reactions: Allergy/AdvReac Type Severity Reaction Status Date / Time Histamine H2 Inhibitors Allergy Rash Verified 08/07/18 08:52 Date of admission: 10/13/18 15:54 Primary care physician: PCP NONE Consults: 10/13/18 17:12 Consult to Residential Counselor [CONS] Routine Reason for SW Consult: placement 10/15/18 07:46 Consult to Nurse Navigator [CONS] Routine Comment: PNEUMONIA 10/15/18 16:59 Consult to Psychiatry [CONS] Routine Consulting Provider: Psychiatry Cora Reason consult: Agitation Psychosis Other reason and/or additional details: Behavioral issues, medication review Time Notified: 17:00 Call Completed: Yes 10/17/18 09:44 Consult to Pulmonology [CONS] Routine Consulting Provider: [facility] Reason for Consult: worsening respiratory status; increased O2 needs. Aspiration PNA Time Notified: 09:49 Call Completed: Yes 10/22/18 09:14 Consult to Palliative Care [CONS] Routine Comment: Consulting Provider: Palliative Care Cora Reason for Consult: increasing O2 requirements; patient DNRCCA-DNI per TAWANNA Kline. Unable to wean from O2 with aspiration PNA. Need to discuss palliative care with family for goals of care. Time Notified: 09:16 Call Completed: Yes Discharging clinician: Richard Varela Anticipated date of discharge: 10/24/18 - Constitutional Vitals: Temp Pulse Resp BP Pulse Ox 97.3 F L 66 15 134/70 96 10/24/18 07:07 10/24/18 07:07 10/24/18 07:07 10/24/18 07:07 10/24/18 04:05 General appearance: Present: A&O X 0, disheveled, no acute distress. Absent: answers questions appropriately Exam: General: Alert distress, alert, following commands HEENT: Head atraumatic, normocephalic, EOMI, PERRL, absent ear discharge or trauma, Moist Mucous Membranes, uvula midline Neck: nontender to palpation, absent lymphadenopathy, Cardiovascualr: Regular rate and rhythm with no murmur, absent gallops or rubs, absent pedal edema, radial pulses 2 out of 4 Lungs: Rhonchi bilaterally moderate distress Abdomen: Soft nontender, nondistended positive bowel sounds, absent hepatomegaly Skin: warm and dry, absent rash, absent open wounds and nodules MSK: absent clubbing, cyanosis, joints without swelling Neuro: Alert to self only not to situation, place, time Psych: Agitated and anxious at times - Patient Status Disposition: Hospice - Home Condition: Fair Functional capacity at discharge: bed bound Overall status at discharge: patient is not back to baseline - Discharge Instructions Follow Up With: Chuy Lloyd MD [Partnered Physician] - Forms: ED Satisfaction Letter - Diet and Activity Activity: increase activity as tolerated Diet: advance to your usual diet <Forest Cardenas - Last Filed: 10/24/18 15:21> Date of Encounter: 10/24/18 - Discharge Diagnosis (1) Altered mental status Status: Chronic Qualifiers: Altered mental status type: somnolence Qualified Code(s): R40.0 - Somnolence (2) Dementia with behavioral disturbance Status: Chronic Qualifiers: Dementia type: vascular dementia Qualified Code(s): F01.51 - Vascular dementia with behavioral disturbance (3) Elevated troponin Status: Acute (4) Aspiration pneumonia Status: Acute Qualifiers: Aspiration pneumonia type: unspecified Laterality: left Lung location: u pper lobe of lung Qualified Code(s): J69.0 - Pneumonitis due to inhalation of food and vomit (5) Acute respiratory failure with hypoxemia Status: Acute Hospital course: Ms. Kline is a 78 year old female - Time Spent with Patient Total time spent providing and/or coordinating discharge services: Date of admission: 10/13/18 15:54 Primary care physician: PCP NONE Consults: 10/13/18 17:12 Consult to Residential Counselor [CONS] Routine Reason for SW Consult: placement 10/15/18 07:46 Consult to Nurse Navigator [CONS] Routine Comment: PNEUMONIA 10/15/18 16:59 Consult to Psychiatry [CONS] Routine Consulting Provider: Psychiatry Cora Reason consult: Agitation Psychosis Other reason and/or additional details: Behavioral issues, medication review Time Notified: 17:00 Call Completed: Yes 10/17/18 09:44 Consult to Pulmonology [CONS] Routine Consulting Provider: Pulm [facility] Reason for Consult: worsening respiratory status; increased O2 needs. Aspiration PNA Time Notified: 09:49 Call Completed: Yes 10/22/18 09:14 Consult to Palliative Care [CONS] Routine Comment: Consulting Provider: Palliative [facility] Reason for Consult: increasing O2 requirements; patient DNRCCA-DNI per TAWANNA Kline. Unable to wean from O2 with aspiration PNA. Need to discuss palliative care with family for goals of care. Time Notified: 09:16 Call Completed: Yes - Constitutional Vitals: Temp Pulse Resp BP Pulse Ox 98.0 F 74 18 93/61 96 10/24/18 11:49 10/24/18 11:49 10/24/18 11:49 10/24/18 11:49 10/24/18 11:49 - Attending Attestation I have seen and examined this patient independently. I have discussed with resident physician Dr Varela regarding the discharge plan. Agree with the documentation.
--- NOTE | 2018-10-24 09:07 | Physician Discharge Referral ---
Home Health/Hosp Referral Info Transfer to: Home Health Attending Provider: Dr. Cardenas Provider in Charge Post Discharge: Director Systems - Diagnosis (1) Aspiration pneumonia Priority: Primary Status: Acute (2) Altered mental status Priority: Secondary Status: Chronic (3) Dementia with behavioral disturbance Priority: Secondary Status: Chronic (4) Elevated troponin Priority: Secondary Status: Acute (5) Acute respiratory failure with hypoxemia Priority: Secondary Status: Acute - Respiratory Orders Oxygen / L per min (10L) Smoking Cessation: Smoking cessation has been advised. For more information, call the [place] Tobacco Quit Line at 3-175-IMNA-NOW. - Diet/Nutrition Diet/Nutrition Orders: Regular - Activity Activity Orders: Chair, Bedrest - Services Needed Following services are medically necessary services: Nursing, Home Health Aide - Transfer Medications Home Medications: Citalopram Hydrobromide [Celexa] 40 mg PO DAILY 02/07/17 [History] Losartan Potassium [Cozaar] 50 mg PO DAILY 02/07/17 [History] traZODone [TraZODone] 50 mg PO HS PRN 08/07/18 [History] OLANZapine [Zyprexa] 2.5 mg PO QAM 10/14/18 [History] OLANZapine [Zyprexa] 5 mg PO HS 10/14/18 [History] amLODIPine [Norvasc] 5 mg PO HS 10/14/18 [History] Allergies/Adverse Reactions: Allergy/AdvReac Type Severity Reaction Status Date / Time Histamine H2 Inhibitors Allergy Rash Verified 08/07/18 08:52 Certification: Further, I certify that my clinical findings support that this patient is homebound (i.e. absences from home require considerable and taxing effort and are for medical reasons or christianity services or infrequently or short duration when for other reasons) because: Homebound Reason: Patient requires assistance of a person or device to safely leave home, Absences from home are contraindicated except to recieve medical care, Altered mental status requiring supervision when leaving home Attestation: My signature below is to certify that this patient is under my care and that I, or nurse practitioner, or a physician's marketing support assistant working with me, has a [id number] encounter with this patient.
--- NOTE | 2018-10-24 09:13 | Palliative Progress Note ---
Date of Encounter: 10/24/18 Time of Encounter: 09:05 - Assessment and plan (1) Hypoxia Current Visit: Yes Status: Acute Assessment and plan: Remains on high oxygen support. This will be set up this am at home prior to discharge. New nebulizer will also be delivered. Will have Roxanol available at home for dyspnea. (2) Goals of care, counseling/discussion Current Visit: Yes Status: Acute Assessment and plan: Discharge home later today with [facility] once DME's set up. D/W Dr. Varela (3) Altered mental status Current Visit: Yes Status: Chronic Qualifiers: Altered mental status type: somnolence Qualified Code(s): R40.0 - Somnolence (4) Dementia Current Visit: No Status: Chronic Qualifiers: Dementia type: unspecified type Dementia behavioral disturbance: with b ehavioral disturbance Qualified Code(s): F03.91 - Unspecified dementia with behavioral disturbance (5) Aspiration pneumonia Current Visit: Yes Status: Acute Qualifiers: Aspiration pneumonia type: unspecified Laterality: left Lung location: upper lobe of lung Qualified Code(s): J69.0 - Pneumonitis due to inhalation of food and vomit (6) Acute respiratory failure with hypoxemia Current Visit: Yes Status: Acute - Time Spent With Patient Total time spent is greater than 50% in coordination of care (as documented) at patient's floor/unit and/or counseling patient: - Subjective Interval history: Patient awake and alert, Does not verbalize or follow commands. No family present. appears in no distress - Constitutional Vitals: Abnormal lab results WBC 22.3 K/mcL (4.3-11.1) H 10/24/18 03:56 RBC 3.41 M/mcL (3.82-4.97) L 10/24/18 03:56 Hgb 10.4 g/dL (11.5-15.4) L 10/24/18 03:56 Hct 31.9 % (35.3-44.9) L 10/24/18 03:56 RDW 16.3 % (11.5-14.5) H 10/24/18 03:56 Immature Gran % 6.5 % (0-4) H 10/24/18 03:56 Metamyelocytes % 2.0 % (0) H 10/22/18 03:27 Myelocytes % 4.0 % (0) H 10/23/18 03:46 Neutrophils # 13.3 K/mcL (1.6-8.9) H 10/24/18 03:56 Monocytes # 3.2 K/mcL (0.0-1.3) H 10/24/18 03:56 Nucleated RBCs/100 WBC 0.3 /100 WBC (0) H 10/16/18 03:39 Anisocytosis 1+ (Not Present) A 10/21/18 04:05 PT 15.4 Seconds (9.4-12.1) H 10/13/18 05:49 D-Dimer 1414 ng/mLFEU (0-500) H 10/12/18 15:10 ABG pH 7.52 pH Units (7.32-7.45) H 10/17/18 12:00 ABG pO2 63 mmHg (85-104) L 10/17/18 12:00 ABG HCO3 35 mEq/L (21-27) H 10/17/18 12:00 ABG Total CO2 37 mEq/L (20-26) H 10/17/18 12:00 ABG O2 Saturation 94 % (95-98) L 10/17/18 12:00 ABG Base Excess 11 mEq/L (-2 to 3) H 10/17/18 12:00 Sodium 135 mEq/L (136-145) L 10/24/18 03:56 BUN 28 mg/dL (8-23) H 10/24/18 03:56 BUN/Creatinine Ratio 47 (6-26) H 10/24/18 03:56 POC Glucose 326 mg/dL (70-99) H 10/23/18 20:16 AST 10 Units/L (13-39) L 10/13/18 05:49 Alkaline Phosphatase 113 Units/L (34-104) H 10/13/18 05:49 Troponin I 0.04 ng/mL (< 0.04) H* 10/13/18 13:09 B-Natriuretic Peptide 213 pg/mL (Less than 100) H 10/17/18 09:04 Albumin 3.2 g/dL (3.5-5.7) L 10/13/18 05:49 Globulin 3.7 g/dL (2.4-3.5) H 10/13/18 05:49 Albumin/Globulin Ratio 0.9 (1.1-2.2) L 10/13/18 05:49 General appearance: Present: no acute distress - Respiratory Respiratory exam: Present: decreased breath sounds - Cardiovascular Cardiovascular exam: Present: +S1, +S2 - GI/Abdominal GI/Abdominal exam: Present: normal bowel sounds, soft - Extremities Exam Extremities exam: Present: normal capillary refill, normal inspection - Neurological Exam Neurological exam: Present: alert Additional comments: MCNALLY - doesn't follow commands. - Skin Skin exam: Present: dry, pallor, warm Palliative Quality Palliative Quality: Screen for Code Status: Yes, Screen for Goals of Care: Yes, Screen for Pain: Yes, If Pain Regimen Started, Initiate Bowel Regimen: NA, Screen for Nausea/Vomitting: Yes Code Status: 10/20/18 11:57 Resuscitation Status: Active [RES] Routine Comment: Resuscitation Status: [id number] - Labs CBC & Chem 7: 10/24/18 03:56 10/24/18 03:56 Labs: Laboratory Results - last 24 hr 10/23/18 10/23/18 10/23/18 07:12 11:17 16:45 WBC RBC Hgb Hct MCV MCH MCHC RDW Plt Count MPV Immature Gran % Seg Neutrophils % Lymphocytes % Monocytes % Eosinophils % Basophils % Neutrophils # Lymphocytes # Monocytes # Eosinophils # Basophils # Platelet Estimate Sodium Potassium Chloride Carbon Dioxide BUN Creatinine Est GFR ( Amer) Est GFR (Non-Af Amer) BUN/Creatinine Ratio Glucose POC Glucose 90 200 H 274 H Calculated Osmolality Calcium 10/23/18 10/24/18 10/24/18 20:16 03:56 03:56 WBC 22.3 H RBC 3.41 L Hgb 10.4 L Hct 31.9 L MCV 93.5 MCH 30.5 MCHC 32.6 RDW 16.3 H Plt Count 263 MPV 10.1 Immature Gran % 6.5 H Seg Neutrophils % 59.7 Lymphocytes % 18.2 Monocytes % 14.3 Eosinophils % 0.8 Basophils % 0.5 Neutrophils # 13.3 H Lymphocytes # 4.1 Monocytes # 3.2 H Eosinophils # 0.2 Basophils # 0.1 Platelet Estimate Normal Sodium 135 L Potassium 5.0 Chloride 102 Carbon Dioxide 27 BUN 28 H Creatinine 0.60 Est GFR ( Amer) > 60 Est GFR (Non-Af Amer) > 60 BUN/Creatinine Ratio 47 H Glucose 79 POC Glucose 326 H Calculated Osmolality 284 Calcium 9.2 - ABG Interpretation ABG results: ABG ABG pH 7.52 pH Units (7.32-7.45) H 10/17/18 12:00 ABG pCO2 43 mmHg (35-45) 10/17/18 12:00 ABG pO2 63 mmHg (85-104) L 10/17/18 12:00 ABG O2 Saturation 94 % (95-98) L 10/17/18 12:00 PT/INR, D-dimer PT 15.4 Seconds (9.4-12.1) H 10/13/18 05:49 D-Dimer 1414 ng/mLFEU (0-500) H 10/12/18 15:10 Consult Discharge Plan - Plan Referrals: Chuy Lloyd MD [Partnered Physician] - Prescriptions: LORazepam Oral Conc [Ativan Oral Conc] 0.5 mg PO Q6HR PRN 4 Days #15 mls PRN Reason: Anxiety MORPHINE SUL Oral CONC [Roxanol Oral Conc] 2.5 - 5 mg PO Q4H PRN 4 Days #15 oral.syg PRN Reason: pain/dyspnea
[2018-10-24] MEDS: Multivit/Ca/Min/Fe/FA 1 TAB TABLET PO SCH (09:49)
[2018-10-24] MEDS: Cholecalciferol (D-3) 1,000 UNIT TABLET PO SCH (09:49)
[2018-10-24] MEDS: Insulin DETEMIR 100 UNIT/ML X5UNITS SQ SCH (09:50)
[2018-10-24 11:51] VITALS: BP 93/61
== END 2018-10-24 15:03 | disposition hospice, home (50) | DRG 177 ==
LOC: EMEROOARM 14:43 → 3BNU 14:43
PROVIDERS: ADMIT Internal Medicine; ATTEND Internal Medicine